=== PATIENT | male | born 1940 | race Caucasian/White ===

== ENCOUNTER 2019-07-01 11:02 | Inpatient (IN) ==
[~2019-07-01 11:02] MED LIST: ASPIRIN 325 MG TABLET PO ONE; DIAZEPAM 5 MG TABLET PO ONE; MAGNESIUM SULF RIDER 2 GM in PREMIX 1 EACH IV PRN; POTASSIUM CHLORIDE RIDER 10 MEQ in PREMIX 1 EACH IV PRN; diphenhydrAMINE CAP 25 MG CAPSULE PO ONE
[2019-07-01 12:07] LABS: Basophils # 0.1 10*3/uL (0.0-0.2); Basophils % 0.8 % (0.0-0.8); Eosinophils # 0.2 10*3/uL (0.0-0.87); Eosinophils % 3.1 % (0.00-10.9); Hematocrit 45.5 VOL% (42.0-52.0); Hemoglobin 14.6 GM/DL (14.0-18.0); Immature Granulocytes % 0.3 %; Immature Granulocytes Absolute 0.02 #; Lymphocytes # 1.5 10*3/uL (1.4-4.0); Lymphocytes % 19.4 % (21.2-54.2); Mean Corpuscular HGB Conc 32.1 GM/DL (32-36); Mean Corpuscular Volume 95.2 FL (87-102); Mean Platelet Volume 11.3 FL (9.6-12.0); Monocytes % 10.1 % (1.7-12.7); Neutrophils % 66.3 % (38.7-73.9); Platelet Count 188 T/CUMM (130-400); Red Blood Count 4.78 MC/CUMM (3.8-5.5); Red Cell Distribution Width 14.2 % (9.3-17.3); White Blood Count 7.7 T/CUMM (4-12)
[2019-07-01 12:16] LABS: PT Patient Result 10.4 SECS (9.6-12.2)
[2019-07-01] MEDS: SODIUM CHLORIDE 0.9% 1,000 ML IV SCH ×2 (12:30→18:01)
[2019-07-01 12:43] LABS: Albumin 3.8 G/DL (3.4-5.0); Bilirubin,Total 0.6 MG/DL (0.2-1.0); Calcium 8.9 MG/DL (8.5-10.1); Osmolality,Calculated 279.4 MOS/KG (273-304); Total Protein 7.4 G/DL (6.4-8.3)
[2019-07-01] MEDS ORDERED: ASPIRIN 325 MG TABLET ONE (12:52)
[2019-07-01] MEDS ORDERED: diphenhydrAMINE CAP 25 MG CAPSULE ONE (12:52)
[2019-07-01] MEDS ORDERED: DIAZEPAM 5 MG TABLET ONE (12:52)
[2019-07-01] MEDS ORDERED: LIDOCAINE 1% 20 ML VIAL ONE (15:18)
[2019-07-01] MEDS ORDERED: HEPARIN/NACL 0.9% 2 UNITS/ML 1,000 ML IV ONE (15:18)
[2019-07-01] MEDS ORDERED: HYDROmorphone 2 MG/1 ML VIAL ONE (15:31)
[2019-07-01] MEDS ORDERED: MIDAZOLAM 2 MG/2 ML VIAL ONE (15:31)
[2019-07-01] MEDS ORDERED: HEPARIN/NACL 0.9% 2 UNITS/ML 500 ML IV ONE (16:04)
[2019-07-01] MEDS ORDERED: HEPARIN 5,000 UNIT/1 ML VIAL ONE (16:13)
[2019-07-01] MEDS ORDERED: ONDANSETRON 4 MG/2 ML VIAL IV PRN (16:43)
[2019-07-01] MEDS ORDERED: ZALEPLON 5 MG CAPSULE PO PRN (16:43)
[2019-07-01] MEDS ORDERED: LABETALOL 20 MG/4 ML SYRINGE IV ONE (16:58)
[2019-07-01] MEDS ORDERED: AMIODARONE 200 MG TABLET PO SCH (21:00)
[2019-07-01] MEDS: ATORVASTATIN 20 MG TABLET PO SCH (21:09)
[2019-07-02 04:48] LABS: Basophils % 0.4 % (0.0-0.8); Eosinophils % 0.2 % (0.00-10.9); Hematocrit 42.8 VOL% (42.0-52.0); Hemoglobin 13.6 GM/DL (14.0-18.0); Immature Granulocytes % 0.3 %; Immature Granulocytes Absolute 0.03 #; Lymphocytes % 9.9 % (21.2-54.2); Mean Corpuscular HGB Conc 31.8 GM/DL (32-36); Mean Platelet Volume 11.9 FL (9.6-12.0); Monocytes % 8.7 % (1.7-12.7); Neutrophils % 80.5 % (38.7-73.9); Platelet Count 172 T/CUMM (130-400); Red Blood Count 4.46 MC/CUMM (3.8-5.5); Red Cell Distribution Width 14.3 % (9.3-17.3); White Blood Count 9.7 T/CUMM (4-12)
[2019-07-02 05:08] LABS: Calcium 8.5 MG/DL (8.5-10.1); Osmolality,Calculated 280.5 MOS/KG (273-304); VLDL CHOLESTEROL 6.6 MG/DL
[2019-07-02] MEDS: SODIUM CHLORIDE 0.9% 1,000 ML IV SCH (06:01)
[2019-07-02] MEDS: ASPIRIN EC 81 MG TABLET PO SCH (08:39)
[2019-07-02] MEDS: OMEGA 3 ACID ETHYL ESTERS 1 GM CAPSULE PO SCH (08:40)
[2019-07-02] MEDS: AMIODARONE 200 MG TABLET PO SCH (08:40)
[2019-07-02] MEDS: ISOSORBIDE MONONITRATE 30 MG TABLET PO SCH (08:40)
[2019-07-02] MEDS: CYANOCOBALAMIN 500 MCG TABLET PO SCH (08:47)
[2019-07-02] MEDS ORDERED: CEFUROXIME INJ 1,500 MG in SYRINGE 1 EACH IV ONE (10:00)
[2019-07-02] MEDS ORDERED: SODIUM CHLORIDE 0.9% 1,000 ML IV SCH ×2 (10:00→10:30)
[2019-07-02] MEDS ORDERED: DEXTROSE 50% 25 GM/50 ML VIAL IV PRN ×2 (10:00→10:02)
[2019-07-02] MEDS ORDERED: GLUCAGON 1 MG VIAL IM PRN ×2 (10:00→10:02)
[2019-07-02 10:15] LABS: ABG Base Excess -0.7 MMOL/L (-2.5-2.5); ABG HCO3 23.8 MMOL/L (20-26); ABG Oxygen Saturation 96.1 % (95-100); ABG PCO2 40.5 MM HG (35-48); ABG PH 7.386 (7.35-7.45); ABG PO2 78.8 MM HG (80-95); ABG TCO2 20.9 MMOL/L (23-27)
[2019-07-02] MEDS ORDERED: CHLORHEXIDINE 4% SOLN 118 ML BOTTLE TOP SCH (15:00)
[2019-07-02] MEDS: CHLORHEXIDINE 4% SOLN 118 ML BOTTLE TOP SCH ×2 (19:37→23:20)
[2019-07-02] MEDS ORDERED: CHLORHEXIDINE 0.12% ORAL RINSE 60 ML BOTTLE SWISH/SPIT SCH (21:00)
[2019-07-02] MEDS: ATORVASTATIN 20 MG TABLET PO SCH (21:05)
[2019-07-02] MEDS: CHLORHEXIDINE 0.12% ORAL RINSE 60 ML BOTTLE SWISH/SPIT SCH (21:05)
[2019-07-03] MEDS ORDERED: SODIUM CHLORIDE 0.9% 1,000 ML IV SCH (04:00)
[2019-07-03] MEDS: CHLORHEXIDINE 4% SOLN 118 ML BOTTLE TOP SCH ×2 (04:03→12:01)
[2019-07-03] MEDS ORDERED: PAPAVERINE 60 MG/2 ML VIAL ONE (04:22)
[2019-07-03] MEDS ORDERED: VANCOMYCIN 500 MG VIAL ONE (04:22)
[2019-07-03] MEDS ORDERED: VANCOMYCIN 1,000 MG VIAL ONE (04:22)
[2019-07-03] MEDS ORDERED: HEPARIN/NACL 0.9% 2 UNITS/ML 500 ML IV ONE (05:31)
[2019-07-03] MEDS ORDERED: CALCIUM CHLORIDE 1,000 MG/10 ML VIAL IV ONE ×2 (05:31→13:02)
[2019-07-03] MEDS ORDERED: PHENYLEPHRINE DRIP 20 MG/250 ML PREMIX IV ONE (05:31)
[2019-07-03] MEDS ORDERED: DOBUTamine 500 MG/250 ML PREMIX IV ONE (05:31)
[2019-07-03] MEDS ORDERED: AMINOCAPROIC ACID 5,000 MG/20 ML VIAL ONE (05:32)
[2019-07-03] MEDS ORDERED: SODIUM CHLORIDE 0.9% 100 ML IV ONE (05:32)
[2019-07-03] MEDS ORDERED: NITROGLYCERIN DRIP 50 MG/250 ML BOTTLE IV ONE (05:32)
[2019-07-03] MEDS ORDERED: VECURONIUM 10 MG VIAL IV ONE (05:32)
[2019-07-03] MEDS ORDERED: ETOMIDATE 40 MG/20 ML VIAL IV ONE (05:32)
[2019-07-03] MEDS ORDERED: SUFentanil 250 MCG/5 ML AMP ONE (05:32)
[2019-07-03] MEDS ORDERED: ePHEDrine 50 MG/ML AMP ONE (05:32)
[2019-07-03] MEDS ORDERED: MIDAZOLAM 10 MG/2 ML VIAL ONE (05:32)
[2019-07-03] MEDS ORDERED: SODIUM CHLORIDE 0.9% 1,000 ML IV ONE (05:33)
[2019-07-03] MEDS ORDERED: SODIUM CHLORIDE 0.9% 250 ML IV ONE (05:33)
[2019-07-03] MEDS ORDERED: LACTATED RINGERS 1,000 ML IV ONE (05:33)
[2019-07-03] MEDS ORDERED: FAMOTIDINE 20 MG TABLET PO ONE (06:00)
[2019-07-03] MEDS ORDERED: DIAZEPAM 5 MG TABLET PO ONE (06:00)
[2019-07-03] MEDS ORDERED: CEFUROXIME INJ 1,500 MG in SYRINGE 1 EACH IV ONE ×2 (06:30→07:00)
[2019-07-03] MEDS ORDERED: NITROPRUSSIDE 50 MG/2 ML VIAL ONE (07:29)
[2019-07-03] MEDS ORDERED: PHENYLEPHRINE DRIP 40 MG/250 ML PREMIX IV ONE (07:29)
[2019-07-03] MEDS ORDERED: SODIUM BICARBONATE 50 MEQ/50 ML VIAL IV ONE ×2 (07:29→10:52)
[2019-07-03] MEDS ORDERED: ALBUMIN 5% 12.5 GM/250 ML VIAL IV ONE ×2 (07:30→12:28)
[2019-07-03] MEDS ORDERED: CALCIUM CHLORIDE 1,000 MG/10 ML SYRINGE IV ONE (07:30)
[2019-07-03] MEDS ORDERED: POTASSIUM CHLORIDE RIDER 100 ML IV ONE (07:30)
[2019-07-03 07:35] LABS: ABG Base Excess 0.3 MMOL/L (-2.5-2.5); ABG HCO3 24.3 MMOL/L (20-26); ABG Oxygen Saturation 99.5 % (95-100); ABG PCO2 37.4 MM HG (35-48); ABG PH 7.431 (7.35-7.45); ABG TCO2 25.5 MMOL/L (23-27); Glucose Heart Surgery 107 MG/DL (74-106); Hemoglobin Heart Surgery 12.5 G/DL (14.0-18.0); Ionized Calcium Arterial 1.13 MMOL/L (1.21-1.46); PCO2 Patient Temp Arterial 37.4 MMHG; PH Patient Temp Arterial 7.431; PO2 Patient Temp Arterial 588.1 MM HG; Patient Temperature 37 CELCIUS; Potassium Heart/CVR 3.8 MMOL/L (3.5-5.1); Sodium Heart/CVR 139 MMOL/L (135-145)
[2019-07-03 07:36] LABS: ABG PO2 588.1 MM HG (80-95)
[2019-07-03] MEDS ORDERED: FAMOTIDINE 20 MG/2 ML VIAL IV ONE (07:39)
[2019-07-03] MEDS ORDERED: diphenhydrAMINE 50 MG/1 ML VIAL ONE (07:39)
[2019-07-03 07:46] LABS: Apearance,Urine CLEAR (Clear); Bilirubin,Urine Negative (Negative); Blood, Urine Small mg/dL (Negative); Glucose,Urine (UA) Negative (Negative); Ketones,Urine Negative (Negative); Mucus,Urine Occasional /LPF (Occasional); Nitrite,Urine Negative (Negative); Protein,Urine Negative; RBC,Urine 3 /HPF (0-4); Urine Color Yellow (Yellow); Urine Specific Gravity 1.018 (1.001-1.035); WBC,Urine <1 /HPF (0-6)
[2019-07-03 08:45] LABS: Hematocrit Heart Surgery 26.3 PERCENT (42-52); Hemoglobin Heart Surgery 8.5 G/DL (14.0-18.0); PCO2 Patient Temp Venous 35.4 MM HG; PH Patient Temp Venous 7.467; PO2 Patient Temp Venous 38.5 MM HG; Potassium Heart/CVR 4.3 MMOL/L (3.5-5.1); VBG Base Excess 2.1 MEQ/L (0-4); VBG HCO3 26.1 MEQ/L (24-28); VBG Oxygen Saturation 84.3 %; VBG PH 7.438; VBG PO2 44.2 MMHG (17-40)
[2019-07-03 09:12] LABS: PCO2 Patient Temp Venous 31.1 MM HG; PH Patient Temp Venous 7.514; PO2 Patient Temp Venous 32.8 MM HG; Potassium Heart/CVR 4.2 MMOL/L (3.5-5.1); VBG Base Excess 2.6 MEQ/L (0-4); VBG HCO3 26.5 MEQ/L (24-28); VBG PCO2 37.7 MMHG (41-51); VBG PH 7.455; VBG PO2 43.3 MMHG (17-40)
[2019-07-03 09:46] LABS: Hematocrit Heart Surgery 29.3 PERCENT (42-52); Hemoglobin Heart Surgery 9.4 G/DL (14.0-18.0); PCO2 Patient Temp Venous 29.2 MM HG; PH Patient Temp Venous 7.537; PO2 Patient Temp Venous 33.6 MM HG; VBG Base Excess 2.8 MEQ/L (0-4); VBG HCO3 26.7 MEQ/L (24-28); VBG Oxygen Saturation 85.7 %; VBG PCO2 35.5 MMHG (41-51); VBG PH 7.476; VBG PO2 44.3 MMHG (17-40)
[2019-07-03 10:18] LABS: Hematocrit Heart Surgery 29.7 PERCENT (42-52); Hemoglobin Heart Surgery 9.6 G/DL (14.0-18.0); PH Patient Temp Venous 7.492; PO2 Patient Temp Venous 32.1 MM HG; Potassium Heart/CVR 4.2 MMOL/L (3.5-5.1); VBG Base Excess 2.2 MEQ/L (0-4); VBG Oxygen Saturation 73.9 %; VBG PCO2 34.6 MMHG (41-51); VBG PH 7.476; VBG PO2 34.4 MMHG (17-40)
[2019-07-03] MEDS ORDERED: ALBUMIN 25% 25 GM/100 ML VIAL IV ONE (10:50)
[2019-07-03] MEDS ORDERED: DEXTROSE 5% KCL 20 MEQ 20 MEQ/1,000 ML BAG IV ONE (10:50)
[2019-07-03] MEDS ORDERED: MANNITOL 100 GM/500 ML BAG IV ONE (10:51)
[2019-07-03] MEDS ORDERED: FUROSEMIDE 20 MG/2 ML VIAL ONE (10:51)
[2019-07-03] MEDS ORDERED: HEPARIN 10,000 UNIT/10 ML VIAL ONE (10:51)
[2019-07-03] MEDS ORDERED: MAGNESIUM SULFATE 5 GM/10 ML VIAL IV ONE (10:52)
[2019-07-03] MEDS ORDERED: LIDOCAINE 2% 5 ML VIAL ONE (10:52)
[2019-07-03] MEDS ORDERED: PROTAMINE SULFATE 250 MG/25 ML VIAL IV ONE (10:52)
[2019-07-03] MEDS ORDERED: methylPREDNISolone SOD SUC 1,000 MG/8 ML VIAL ONE (10:52)
[2019-07-03 11:08] LABS: ABG Base Excess 1.2 MMOL/L (-2.5-2.5); ABG HCO3 25.5 MMOL/L (20-26); ABG PCO2 39.3 MM HG (35-48); ABG PH 7.422 (7.35-7.45); ABG TCO2 23.7 MMOL/L (23-27); Glucose Heart Surgery 213 MG/DL (74-106); Hematocrit Heart Surgery 27.2 PERCENT (42-52); Hemoglobin Heart Surgery 8.8 G/DL (14.0-18.0); Ionized Calcium Arterial 1.14 MMOL/L (1.21-1.46); PCO2 Patient Temp Arterial 39.3 MMHG; PH Patient Temp Arterial 7.422; Patient Temperature 37 CELCIUS; Potassium Heart/CVR 3.4 MMOL/L (3.5-5.1); Sodium Heart/CVR 135 MMOL/L (135-145)
[2019-07-03] MEDS ORDERED: THROMBIN TOPICAL (RECOMBINANT) 5,000 UNIT VIAL TOP ONE (11:19)
[2019-07-03 11:30] LABS: ABG Base Excess 0.4 MMOL/L (-2.5-2.5); ABG HCO3 24.8 MMOL/L (20-26); ABG PCO2 38.3 MM HG (35-48); ABG PH 7.419 (7.35-7.45); ABG TCO2 23.2 MMOL/L (23-27); Glucose Heart Surgery 192 MG/DL (74-106); Hematocrit Heart Surgery 23.8 PERCENT (42-52); Hemoglobin Heart Surgery 7.6 G/DL (14.0-18.0); PCO2 Patient Temp Arterial 38.3 MMHG; PH Patient Temp Arterial 7.419; Patient Temperature 37 CELCIUS; Potassium Heart/CVR 5.3 MMOL/L (3.5-5.1); Sodium Heart/CVR 137 MMOL/L (135-145)
[2019-07-03] MEDS: AMIODARONE 200 MG TABLET PO SCH (12:01)
[2019-07-03] MEDS: ASPIRIN EC 81 MG TABLET PO SCH (12:01)
[2019-07-03] MEDS: ISOSORBIDE MONONITRATE 30 MG TABLET PO SCH (12:01)
[2019-07-03] MEDS: OMEGA 3 ACID ETHYL ESTERS 1 GM CAPSULE PO SCH (12:01)
[2019-07-03] MEDS: CYANOCOBALAMIN 500 MCG TABLET PO SCH (12:02)
[2019-07-03] MEDS: CHLORHEXIDINE 0.12% ORAL RINSE 60 ML BOTTLE SWISH/SPIT SCH ×2 (12:02→20:17)
[2019-07-03 12:13] LABS: ABG Base Excess -3.6 MMOL/L (-2.5-2.5); ABG HCO3 21.4 MMOL/L (20-26); ABG Oxygen Saturation 99.7 % (95-100); ABG PCO2 36.3 MM HG (35-48); ABG PH 7.373 (7.35-7.45); ABG TCO2 19.5 MMOL/L (23-27); Glucose Heart Surgery 193 MG/DL (74-106); Hematocrit Heart Surgery 28.3 PERCENT (42-52); Hemoglobin Heart Surgery 9.1 G/DL (14.0-18.0); Ionized Calcium Arterial 1.08 MMOL/L (1.21-1.46); PCO2 Patient Temp Arterial 36.3 MMHG; PH Patient Temp Arterial 7.373; Patient Temperature 37 CELCIUS; Potassium Heart/CVR 4.3 MMOL/L (3.5-5.1); Sodium Heart/CVR 139 MMOL/L (135-145)
[2019-07-03] MEDS ORDERED: CALCIUM CHLORIDE 1,000 MG/10 ML SYRINGE IV PRN (13:00)
[2019-07-03] MEDS ORDERED: INSULIN REGULAR 100 UNIT/ML IV ONE (13:00)
[2019-07-03] MEDS ORDERED: ACETAMINOPHEN 650 MG SUPP RECTAL PRN (13:00)
[2019-07-03] MEDS ORDERED: MIDAZOLAM 2 MG/2 ML VIAL IV PRN (13:00)
[2019-07-03] MEDS ORDERED: DEXTROSE 50% 25 GM/50 ML VIAL IV PRN ×2 (13:00)
[2019-07-03] MEDS ORDERED: MIDAZOLAM 10 MG/2 ML VIAL IV PRN (13:00)
[2019-07-03] MEDS ORDERED: MORPHINE 10 MG/1 ML VIAL IV PRN (13:00)
[2019-07-03] MEDS ORDERED: INSULIN REGULAR 100 UNIT/ML IV PRN (13:00)
[2019-07-03] MEDS ORDERED: NITROPRUSSIDE 100 MG in DEXTROSE 5% 250 ML IV PRN (13:00)
[2019-07-03] MEDS ORDERED: MAGNESIUM SULF RIDER 4 GM in PREMIX 1 EACH IV PRN (13:00)
[2019-07-03] MEDS ORDERED: INSULIN REGULAR DRIP 100 ML IV SCH (13:00)
[2019-07-03] MEDS ORDERED: VECURONIUM 10 MG VIAL IV PRN ×2 (13:00)
[2019-07-03] MEDS ORDERED: SODIUM CHLORIDE 0.45% 1,000 ML IV SCH ×2 (13:00)
[2019-07-03] MEDS ORDERED: PROTAMINE SULFATE 50 MG/5 ML VIAL IV ONE (13:01)
[2019-07-03 13:02] LABS: ABG Base Excess 1.2 MMOL/L (-2.5-2.5); ABG HCO3 25.5 MMOL/L (20-26); ABG Oxygen Saturation 99.8 % (95-100); ABG PCO2 40.4 MM HG (35-48); ABG PH 7.413 (7.35-7.45); Glucose Heart Surgery 176 MG/DL (74-106); Hematocrit Heart Surgery 25.7 PERCENT (42-52); Hemoglobin Heart Surgery 8.3 G/DL (14.0-18.0); Potassium Heart/CVR 3.4 MMOL/L (3.5-5.1)
[2019-07-03] MEDS ORDERED: SEVOFLURANE 1 UNIT/15 MINUTE INH ONE (13:02)
[2019-07-03 13:11] LABS: Basophils % 0.2 % (0.0-0.8); Eosinophils % 0.4 % (0.00-10.9); Hematocrit 24.4 VOL% (42.0-52.0); Hemoglobin 8.1 GM/DL (14.0-18.0); Immature Granulocytes % 0.6 %; Immature Granulocytes Absolute 0.06 #; Lymphocytes # 0.5 10*3/uL (1.4-4.0); Lymphocytes % 5.3 % (21.2-54.2); Mean Corpuscular HGB Conc 33.2 GM/DL (32-36); Mean Corpuscular Volume 92.4 FL (87-102); Mean Platelet Volume 11.8 FL (9.6-12.0); Monocytes % 6.8 % (1.7-12.7); Neutrophils % 86.7 % (38.7-73.9); Platelet Count 118 T/CUMM (130-400); Red Blood Count 2.64 MC/CUMM (3.8-5.5); Red Cell Distribution Width 14.8 % (9.3-17.3); White Blood Count 9.9 T/CUMM (4-12)
[2019-07-03] MEDS: POTASSIUM CHLORIDE RIDER 20 MEQ in PREMIX 1 EACH IV PRN ×2 (13:18→13:51)
[2019-07-03] MEDS: PHENYLEPHRINE DRIP 40 MG/250 ML PREMIX IV PRN (13:20)
[2019-07-03 13:24] LABS: Albumin 3.5 G/DL (3.4-5.0); Bilirubin,Total 0.8 MG/DL (0.2-1.0); CKMB % 8.4 %; Calcium 10.2 MG/DL (8.5-10.1); Osmolality,Calculated 295.6 MOS/KG (273-304); Total Protein 5.4 G/DL (6.4-8.3)
[2019-07-03 13:27] LABS: Troponin I 18.5 NG/ML (0.00-0.045)
[2019-07-03] MEDS: KETOROLAC 30 MG/1 ML VIAL IV SCH ×2 (13:40→19:25)
[2019-07-03] MEDS: ALBUMIN 5% 12.5 GM in PREMIX 1 EACH IV PRN ×4 (14:00→18:39)
[2019-07-03 14:13] LABS: ABG Base Excess -0.1 MMOL/L (-2.5-2.5); ABG HCO3 24.3 MMOL/L (20-26); ABG Oxygen Saturation 98.5 % (95-100); ABG PCO2 38.9 MM HG (35-48); ABG PH 7.414 (7.35-7.45); ABG TCO2 25.5 MMOL/L (23-27); Glucose Heart Surgery 174 MG/DL (74-106); Hemoglobin Heart Surgery 9.9 G/DL (14.0-18.0); Potassium Heart/CVR 5.4 MMOL/L (3.5-5.1)
[2019-07-03 15:02] LABS: Eosinophils 2 % (0-10); Lymphocytes 4 % (20-55); Segmented Neutrophils 90 % (50-85); Total Cells Counted 100
[2019-07-03 15:03] LABS: Anisocytosis 1+; Hypochromasia 1+
[2019-07-03 15:04] LABS: Macrocytosis Slight; Platelet Estimate Adequate
[2019-07-03 16:07] LABS: ABG Base Excess -0.1 MMOL/L (-2.5-2.5); ABG HCO3 25.2 MMOL/L (20-26); ABG Oxygen Saturation 98.3 % (95-100); ABG PCO2 43.9 MM HG (35-48); ABG PH 7.376 (7.35-7.45); ABG PO2 169.8 MM HG (80-95); ABG TCO2 26.5 MMOL/L (23-27); Glucose Heart Surgery 178 MG/DL (74-106); Hemoglobin Heart Surgery 9.4 G/DL (14.0-18.0); Potassium Heart/CVR 4.5 MMOL/L (3.5-5.1)
[2019-07-03 16:35] LABS: INR 1.2; PT Patient Result 12.7 SECS (9.6-12.2); Partial Thromboplastin Time 28.6 SECS (20.8-36.0)
[2019-07-03] MEDS: LACTATED RINGERS 250 ML IV PRN ×4 (17:03→17:27)
[2019-07-03 18:04] LABS: ABG Base Excess -0.2 MMOL/L (-2.5-2.5); ABG HCO3 24.3 MMOL/L (20-26); ABG Oxygen Saturation 99.3 % (95-100); ABG PCO2 41.7 MM HG (35-48); ABG PH 7.383 (7.35-7.45); ABG TCO2 22.6 MMOL/L (23-27); Glucose Heart Surgery 160 MG/DL (74-106); Hematocrit Heart Surgery 31.7 PERCENT (42-52); Potassium Heart/CVR 4.5 MMOL/L (3.5-5.1)
[2019-07-03 18:05] LABS: Hemoglobin Heart Surgery 10.2 G/DL (14.0-18.0)
[2019-07-03] MEDS: CEFUROXIME INJ 1,500 MG in SYRINGE 1 EACH IV SCH (20:18)
[2019-07-03 21:09] LABS: Hematocrit 30.4 VOL% (42.0-52.0)
[2019-07-03 21:11] LABS: Hemoglobin 10.2 GM/DL (14.0-18.0)
[2019-07-03] MEDS: MORPHINE 4 MG/1 ML VIAL IV PRN (21:53)
[2019-07-03] MEDS ORDERED: NITROGLYCERIN DRIP 50 MG/250 ML BOTTLE IV PRN (22:43)
[2019-07-03 22:49] LABS: CKMB % 9.4 %
[2019-07-03 22:53] LABS: Troponin I 74.3 NG/ML (0.00-0.045)
[2019-07-03 23:29] LABS: Hematocrit 30.8 VOL% (42.0-52.0); Hemoglobin 10.4 GM/DL (14.0-18.0)
[2019-07-04] MEDS ORDERED: DOBUTamine 500 MG/250 ML PREMIX IV PRN (00:03)
[2019-07-04] MEDS: KETOROLAC 30 MG/1 ML VIAL IV SCH ×4 (01:00→18:14)
[2019-07-04] MEDS: FUROSEMIDE 40 MG/4 ML VIAL IV PRN (01:03)
[2019-07-04] MEDS: LACTATED RINGERS 250 ML IV PRN ×2 (01:40→01:56)
[2019-07-04 01:49] LABS: ABG Base Excess 0.3 MMOL/L (-2.5-2.5); ABG HCO3 24.7 MMOL/L (20-26); ABG Oxygen Saturation 98.9 % (95-100); ABG PCO2 39.9 MM HG (35-48); ABG PH 7.405 (7.35-7.45); ABG TCO2 22.7 MMOL/L (23-27); Glucose Heart Surgery 170 MG/DL (74-106); Hematocrit Heart Surgery 31.3 PERCENT (42-52); Hemoglobin Heart Surgery 10.1 G/DL (14.0-18.0); Potassium Heart/CVR 3.9 MMOL/L (3.5-5.1)
[2019-07-04] MEDS: MORPHINE 4 MG/1 ML VIAL IV PRN ×2 (02:50→16:46)
[2019-07-04 02:53] LABS: ABG Base Excess 0.3 MMOL/L (-2.5-2.5); ABG HCO3 24.8 MMOL/L (20-26); ABG Oxygen Saturation 99.3 % (95-100); ABG PCO2 37.2 MM HG (35-48); ABG PH 7.426 (7.35-7.45); ABG TCO2 22.1 MMOL/L (23-27); Glucose Heart Surgery 139 MG/DL (74-106); Hemoglobin Heart Surgery 10.3 G/DL (14.0-18.0); Potassium Heart/CVR 3.6 MMOL/L (3.5-5.1)
[2019-07-04] MEDS: ONDANSETRON 4 MG/2 ML VIAL IV PRN (03:53)
[2019-07-04 04:23] LABS: Basophils % 0.1 % (0.0-0.8); Hematocrit 30.4 VOL% (42.0-52.0); Hemoglobin 10.1 GM/DL (14.0-18.0); Immature Granulocytes % 0.4 %; Immature Granulocytes Absolute 0.05 #; Lymphocytes # 0.8 10*3/uL (1.4-4.0); Lymphocytes % 6.8 % (21.2-54.2); Mean Corpuscular HGB Conc 33.2 GM/DL (32-36); Mean Corpuscular Volume 85.9 FL (87-102); Mean Platelet Volume 12.3 FL (9.6-12.0); Monocytes % 6.6 % (1.7-12.7); Neutrophils % 86.1 % (38.7-73.9); Platelet Count 62 T/CUMM (130-400); Red Blood Count 3.54 MC/CUMM (3.8-5.5); Red Cell Distribution Width 16.1 % (9.3-17.3); White Blood Count 11.9 T/CUMM (4-12)
[2019-07-04 04:49] LABS: Albumin 3.6 G/DL (3.4-5.0); Bilirubin,Direct 0.28 MG/DL (0.0-0.20); Bilirubin,Total 1.1 MG/DL (0.2-1.0); Calcium 8.4 MG/DL (8.5-10.1); Total Protein 5.7 G/DL (6.4-8.3)
[2019-07-04] MEDS: POTASSIUM CHLORIDE RIDER 20 MEQ in PREMIX 1 EACH IV PRN (05:07)
[2019-07-04] MEDS: MAGNESIUM SULF RIDER 2 GM in PREMIX 1 EACH IV PRN (05:12)
[2019-07-04 05:37] LABS: Band Neutrophils 6 % (0-10); Lymphocytes 9 % (20-55); Segmented Neutrophils 78 % (50-85); Total Cells Counted 100
[2019-07-04 05:39] LABS: CKMB % 10.2 %
[2019-07-04 05:40] LABS: Anisocytosis 1+; Platelet Estimate Decreased
[2019-07-04] MEDS: POTASSIUM CHLORIDE RIDER 10 MEQ in PREMIX 1 EACH IV PRN (05:41)
[2019-07-04] MEDS: CEFUROXIME INJ 1,500 MG in SYRINGE 1 EACH IV SCH ×2 (08:13→20:18)
[2019-07-04] MEDS: CHLORHEXIDINE 0.12% ORAL RINSE 60 ML BOTTLE SWISH/SPIT SCH ×2 (08:13→20:20)
[2019-07-04] MEDS ORDERED: GLUCAGON 1 MG VIAL IM PRN (09:37)
[2019-07-04] MEDS ORDERED: DEXTROSE 10% 25 GM/250 ML BAG IV PRN (09:37)
[2019-07-04] MEDS: ALBUMIN 5% 12.5 GM in PREMIX 1 EACH IV PRN ×2 (10:46→11:04)
[2019-07-04] MEDS: PHENYLEPHRINE DRIP 40 MG/250 ML PREMIX IV PRN (11:05)
[2019-07-04] MEDS ORDERED: INSULIN REGULAR 100 UNIT/ML SUBCUT SCH (14:00)
[2019-07-04 14:56] LABS: CKMB % 8.6 %
[2019-07-04 14:59] LABS: Troponin I 80.2 NG/ML (0.00-0.045)
[2019-07-04] MEDS: INSULIN REGULAR 100 UNIT/ML SUBCUT SCH ×2 (16:00→20:20)
[2019-07-04] MEDS: ACETAMINOPHEN 325 MG TABLET PO PRN (16:55)
[2019-07-04] MEDS ORDERED: HEPARIN/NACL 0.9% 2 UNITS/ML 500 ML IV ONE (16:58)
[2019-07-04 20:05] LABS: ABG HCO3 27.3 MMOL/L (20-26); ABG Oxygen Saturation 90.1 % (95-100); ABG PCO2 40.5 MM HG (35-48); ABG PH 7.446 (7.35-7.45); ABG TCO2 28.5 MMOL/L (23-27)
[2019-07-04] MEDS ORDERED: FUROSEMIDE 40 MG/4 ML VIAL IV ONE (20:11)
[2019-07-04] MEDS: ATORVASTATIN 20 MG TABLET PO SCH (20:20)
[2019-07-04] MEDS ORDERED: LIDOCAINE 1%/EPI INJ 20 ML VIAL ONE (20:30)
[2019-07-04] MEDS ORDERED: MIDAZOLAM 2 MG/2 ML VIAL IV ONE (21:00)
[2019-07-04] MEDS: ALBUTEROL/IPRATROPIUM 3 ML NEB RESP TX SCH (21:48)
[2019-07-05] MEDS: ALBUTEROL/IPRATROPIUM 3 ML NEB RESP TX SCH ×4 (00:47→19:47)
[2019-07-05] MEDS: INSULIN REGULAR 100 UNIT/ML SUBCUT SCH ×6 (01:22→20:08)
[2019-07-05] MEDS ORDERED: FUROSEMIDE 20 MG/2 ML VIAL IV ONE (02:00)
[2019-07-05 04:04] LABS: Basophils % 0.1 % (0.0-0.8); Hematocrit 24.5 VOL% (42.0-52.0); Hemoglobin 8.1 GM/DL (14.0-18.0); Immature Granulocytes % 0.4 %; Immature Granulocytes Absolute 0.07 #; Lymphocytes # 0.9 10*3/uL (1.4-4.0); Mean Corpuscular HGB Conc 33.1 GM/DL (32-36); Mean Corpuscular Volume 88.4 FL (87-102); Mean Platelet Volume 13.6 FL (9.6-12.0); Monocytes % 8.9 % (1.7-12.7); Neutrophils % 85.6 % (38.7-73.9); Platelet Count 46 T/CUMM (130-400); Red Blood Count 2.77 MC/CUMM (3.8-5.5); Red Cell Distribution Width 16.8 % (9.3-17.3); White Blood Count 17.6 T/CUMM (4-12)
[2019-07-05 04:30] LABS: Albumin 3.3 G/DL (3.4-5.0); Bilirubin,Direct 0.17 MG/DL (0.0-0.20); Bilirubin,Total 1.1 MG/DL (0.2-1.0); Calcium 7.9 MG/DL (8.5-10.1); Osmolality,Calculated 290.3 MOS/KG (273-304); Total Protein 5.5 G/DL (6.4-8.3)
[2019-07-05 05:22] LABS: Anisocytosis 1+; Lymphocytes 5 % (20-55); Platelet Estimate Decreased; Segmented Neutrophils 92 % (50-85); Total Cells Counted 100
[2019-07-05] MEDS: MAGNESIUM SULF RIDER 2 GM in PREMIX 1 EACH IV PRN (05:51)
[2019-07-05] MEDS: FUROSEMIDE 40 MG/4 ML VIAL IV PRN (07:58)
[2019-07-05] MEDS: OMEGA 3 ACID ETHYL ESTERS 1 GM CAPSULE PO SCH (08:01)
[2019-07-05] MEDS: ASPIRIN EC 81 MG TABLET PO SCH (08:01)
[2019-07-05] MEDS: AMIODARONE 200 MG TABLET PO SCH (08:01)
[2019-07-05] MEDS: CHLORHEXIDINE 0.12% ORAL RINSE 60 ML BOTTLE SWISH/SPIT SCH ×2 (08:02→20:09)
[2019-07-05] MEDS: ISOSORBIDE MONONITRATE 30 MG TABLET PO SCH (08:02)
[2019-07-05] MEDS: CYANOCOBALAMIN 5000 MCG TABLET PO SCH (08:02)
[2019-07-05] MEDS: DOBUTamine 500 MG/250 ML PREMIX IV SCH (08:51)
[2019-07-05] MEDS: PIPERACILLIN/TAZOBACTAM 2,250 MG in SODIUM CHLORIDE 0.9% 100 ML IV SCH ×2 (09:25→16:51)
[2019-07-05 10:12] LABS: Hematocrit 31.9 VOL% (42.0-52.0); Hemoglobin 10.7 GM/DL (14.0-18.0)
[2019-07-05] MEDS: PHENYLEPHRINE DRIP 40 MG/250 ML PREMIX IV PRN ×2 (11:12→20:17)
[2019-07-05] MEDS: FUROSEMIDE 40 MG/4 ML VIAL IV SCH ×2 (15:28→18:31)
[2019-07-05] MEDS: ATORVASTATIN 20 MG TABLET PO SCH (20:08)
[2019-07-06] MEDS: INSULIN REGULAR 100 UNIT/ML SUBCUT SCH ×6 (00:43→20:29)
[2019-07-06 01:10] LABS: ABG Base Excess 6.4 MMOL/L (-2.5-2.5); ABG HCO3 30.3 MMOL/L (20-26); ABG Oxygen Saturation 97.2 % (95-100); ABG PCO2 40.6 MM HG (35-48); ABG PH 7.483 (7.35-7.45); ABG PO2 82.5 MM HG (80-95); ABG TCO2 27.2 MMOL/L (23-27); Allen Test Positive
[2019-07-06] MEDS: PIPERACILLIN/TAZOBACTAM 2,250 MG in SODIUM CHLORIDE 0.9% 100 ML IV SCH ×3 (01:13→16:55)
[2019-07-06] MEDS: ALBUTEROL/IPRATROPIUM 3 ML NEB RESP TX SCH ×4 (01:22→20:00)
[2019-07-06] MEDS ORDERED: FUROSEMIDE 40 MG/4 ML VIAL IV ONE (01:29)
[2019-07-06] MEDS ORDERED: methylPREDNISolone SOD SUC 125 MG/2 ML VIAL IV SCH (02:00)
[2019-07-06] MEDS: VANCOMYCIN INJ 1,000 MG in SODIUM CHLORIDE 0.9% 250 ML IV SCH ×2 (02:26→13:55)
[2019-07-06 04:59] LABS: Basophils % 0.1 % (0.0-0.8); Hematocrit 33.9 VOL% (42.0-52.0); Hemoglobin 11.1 GM/DL (14.0-18.0); Immature Granulocytes % 1.2 %; Immature Granulocytes Absolute 0.23 #; Lymphocytes # 0.6 10*3/uL (1.4-4.0); Lymphocytes % 3.1 % (21.2-54.2); Mean Corpuscular HGB Conc 32.7 GM/DL (32-36); Mean Platelet Volume 13.7 FL (9.6-12.0); Monocytes % 6.2 % (1.7-12.7); Neutrophils % 89.4 % (38.7-73.9); Platelet Count 54 T/CUMM (130-400); Red Blood Count 3.81 MC/CUMM (3.8-5.5); Red Cell Distribution Width 16.4 % (9.3-17.3); White Blood Count 19.8 T/CUMM (4-12)
[2019-07-06] MEDS: PHENYLEPHRINE DRIP 40 MG/250 ML PREMIX IV PRN ×3 (05:20→23:47)
[2019-07-06 05:27] LABS: Albumin 3.3 G/DL (3.4-5.0); Bilirubin,Direct 0.3 MG/DL (0.0-0.20); Bilirubin,Total 0.9 MG/DL (0.2-1.0); Calcium 8.2 MG/DL (8.5-10.1); Osmolality,Calculated 295.8 MOS/KG (273-304); Total Protein 6.2 G/DL (6.4-8.3)
[2019-07-06 05:30] LABS: Hypochromasia Slight; Lymphocytes 1 % (20-55); Platelet Estimate Decreased; Segmented Neutrophils 97 % (50-85); Total Cells Counted 100
[2019-07-06] MEDS: methylPREDNISolone SOD SUC 125 MG/2 ML VIAL IV SCH ×3 (07:11→18:05)
[2019-07-06] MEDS: ISOSORBIDE MONONITRATE 30 MG TABLET PO SCH (08:40)
[2019-07-06] MEDS: AMIODARONE 200 MG TABLET PO SCH ×3 (08:40→21:14)
[2019-07-06] MEDS: OMEGA 3 ACID ETHYL ESTERS 1 GM CAPSULE PO SCH (08:40)
[2019-07-06] MEDS: ASPIRIN EC 81 MG TABLET PO SCH (08:40)
[2019-07-06] MEDS: FUROSEMIDE 40 MG/4 ML VIAL IV SCH ×2 (08:45→16:55)
[2019-07-06] MEDS: DOBUTamine 500 MG/250 ML PREMIX IV SCH (09:00)
[2019-07-06] MEDS: CYANOCOBALAMIN 5000 MCG TABLET PO SCH (09:00)
[2019-07-06] MEDS: CHLORHEXIDINE 0.12% ORAL RINSE 60 ML BOTTLE SWISH/SPIT SCH ×2 (10:30→21:21)
[2019-07-06] MEDS: MORPHINE 4 MG/1 ML VIAL IV PRN (13:50)
[2019-07-06] MEDS: METOPROLOL TARTRATE 25 MG TABLET PO SCH ×2 (14:30→21:14)
[2019-07-06] MEDS ORDERED: DOCUSATE SODIUM 100 MG CAPSULE PO SCH (21:00)
[2019-07-06] MEDS: ATORVASTATIN 20 MG TABLET PO SCH (21:14)
[2019-07-06] MEDS ORDERED: ETOMIDATE 20 MG/10 ML VIAL IV ONE ×2 (22:14→22:39)
[2019-07-06] MEDS ORDERED: SUCCINYLCHOLINE 200 MG/10 ML VIAL ONE (22:15)
[2019-07-06] MEDS ORDERED: SUCCINYLCHOLINE 200 MG/10 ML VIAL IV ONE (22:40)
[2019-07-06 23:42] LABS: ABG Base Excess 6.8 MMOL/L (-2.5-2.5); ABG HCO3 30.6 MMOL/L (20-26); ABG Oxygen Saturation 99.3 % (95-100); ABG PCO2 42.8 MM HG (35-48); ABG TCO2 27.9 MMOL/L (23-27); Allen Test Positive; Pt O2 Delivery Device Ventilator
[2019-07-07] MEDS: INSULIN REGULAR 100 UNIT/ML SUBCUT SCH ×6 (00:54→21:01)
[2019-07-07] MEDS: methylPREDNISolone SOD SUC 125 MG/2 ML VIAL IV SCH ×2 (00:54→06:01)
[2019-07-07] MEDS: FUROSEMIDE 40 MG/4 ML VIAL IV PRN (01:02)
[2019-07-07] MEDS: PIPERACILLIN/TAZOBACTAM 2,250 MG in SODIUM CHLORIDE 0.9% 100 ML IV SCH ×3 (01:03→17:20)
[2019-07-07] MEDS: ALBUTEROL/IPRATROPIUM 3 ML NEB RESP TX SCH ×4 (01:50→19:35)
[2019-07-07] MEDS: VANCOMYCIN INJ 1,000 MG in SODIUM CHLORIDE 0.9% 250 ML IV SCH ×2 (02:14→15:45)
[2019-07-07 03:10] LABS: Basophils % 0.1 % (0.0-0.8); Hematocrit 32.3 VOL% (42.0-52.0); Hemoglobin 10.4 GM/DL (14.0-18.0); Immature Granulocytes % 0.6 %; Immature Granulocytes Absolute 0.13 #; Lymphocytes # 0.6 10*3/uL (1.4-4.0); Lymphocytes % 2.6 % (21.2-54.2); Mean Corpuscular HGB Conc 32.2 GM/DL (32-36); Mean Corpuscular Volume 90.2 FL (87-102); Monocytes % 6.7 % (1.7-12.7); NRBC # 0.05 10*3/uL; Platelet Count 79 T/CUMM (130-400); Red Blood Count 3.58 MC/CUMM (3.8-5.5); Red Cell Distribution Width 16.4 % (9.3-17.3)
[2019-07-07 03:36] LABS: Albumin 2.8 G/DL (3.4-5.0); Osmolality,Calculated 294.1 MOS/KG (273-304); Total Protein 5.7 G/DL (6.4-8.3)
[2019-07-07 03:51] LABS: Troponin I 38.9 NG/ML (0.00-0.045)
[2019-07-07 03:58] LABS: Anisocytosis Slight; Hypochromasia Slight; Lymphocytes 3 % (20-55); Microcytosis Slight; Platelet Estimate Decreased; Segmented Neutrophils 95 % (50-85); Total Cells Counted 100
[2019-07-07 03:58] LABS: ABG Base Excess 7.6 MMOL/L (-2.5-2.5); ABG HCO3 31.4 MMOL/L (20-26); ABG PCO2 41.9 MM HG (35-48); ABG PH 7.489 (7.35-7.45); ABG TCO2 26.3 MMOL/L (23-27); Allen Test Positive; Pt O2 Delivery Device Ventilator
[2019-07-07 03:59] LABS: Ovalocytes Slight; Polychromasia Slight; Target Cells Few
[2019-07-07] MEDS: POTASSIUM CHLORIDE RIDER 20 MEQ in PREMIX 1 EACH IV PRN (05:38)
[2019-07-07] MEDS: PHENYLEPHRINE DRIP 40 MG/250 ML PREMIX IV PRN ×2 (05:51→15:40)
[2019-07-07] MEDS: DOCUSATE SODIUM 100 MG/10 ML UDCUP PO SCH ×2 (08:15→21:00)
[2019-07-07] MEDS: AMIODARONE 200 MG TABLET PO SCH ×2 (08:15→21:00)
[2019-07-07] MEDS: METOPROLOL TARTRATE 25 MG TABLET PO SCH ×2 (08:15→21:01)
[2019-07-07] MEDS: ASPIRIN EC 81 MG TABLET PO SCH (08:15)
[2019-07-07] MEDS: CHLORHEXIDINE 0.12% ORAL RINSE 60 ML BOTTLE SWISH/SPIT SCH ×2 (08:15→21:16)
[2019-07-07] MEDS: FUROSEMIDE 40 MG/4 ML VIAL IV SCH ×2 (08:15)
[2019-07-07] MEDS: CYANOCOBALAMIN 5000 MCG TABLET PO SCH (09:00)
[2019-07-07] MEDS: ALBUMIN 5% 12.5 GM in PREMIX 1 EACH IV PRN ×2 (11:20→11:50)
[2019-07-07] MEDS: methylPREDNISolone SOD SUC 40 MG/1 ML VIAL IV SCH ×2 (12:05→21:00)
[2019-07-07] MEDS: ASCORBIC ACID 500 MG TABLET NG SCH ×2 (12:05→21:01)
[2019-07-07] MEDS: ATORVASTATIN 20 MG TABLET PO SCH (21:00)
[2019-07-07] MEDS ORDERED: FUROSEMIDE 40 MG/4 ML VIAL IV ONE (23:15)
[2019-07-08] MEDS: ALBUTEROL/IPRATROPIUM 3 ML NEB RESP TX SCH ×4 (00:30→19:14)
[2019-07-08] MEDS: INSULIN REGULAR 100 UNIT/ML SUBCUT SCH ×6 (01:46→21:03)
[2019-07-08] MEDS: PIPERACILLIN/TAZOBACTAM 2,250 MG in SODIUM CHLORIDE 0.9% 100 ML IV SCH ×3 (01:50→16:13)
[2019-07-08] MEDS: VANCOMYCIN INJ 1,000 MG in SODIUM CHLORIDE 0.9% 250 ML IV SCH (02:27)
[2019-07-08 03:10] LABS: ABG HCO3 31.8 MMOL/L (20-26); ABG Oxygen Saturation 99.6 % (95-100); ABG PCO2 40.4 MM HG (35-48); ABG PH 7.504 (7.35-7.45); ABG TCO2 28.5 MMOL/L (23-27); Allen Test Positive; Pt O2 Delivery Device Ventilator
[2019-07-08 04:16] LABS: Basophils % 0.1 % (0.0-0.8); Hematocrit 31.5 VOL% (42.0-52.0); Hemoglobin 9.8 GM/DL (14.0-18.0); Immature Granulocytes % 0.6 %; Lymphocytes # 0.4 10*3/uL (1.4-4.0); Lymphocytes % 2.5 % (21.2-54.2); Mean Corpuscular HGB Conc 31.1 GM/DL (32-36); Mean Corpuscular Volume 92.4 FL (87-102); Mean Platelet Volume 11.6 FL (9.6-12.0); Monocytes % 8.1 % (1.7-12.7); NRBC # 0.05 10*3/uL; Neutrophils % 88.7 % (38.7-73.9); Platelet Count 107 T/CUMM (130-400); Red Blood Count 3.41 MC/CUMM (3.8-5.5); Red Cell Distribution Width 16.2 % (9.3-17.3); White Blood Count 16.7 T/CUMM (4-12)
[2019-07-08 04:39] LABS: Calcium 8.3 MG/DL (8.5-10.1); Osmolality,Calculated 302.7 MOS/KG (273-304)
[2019-07-08 04:43] LABS: Hypochromasia 1+; Lymphocytes 2 % (20-55); Platelet Estimate Decreased; Segmented Neutrophils 91 % (50-85); Total Cells Counted 100
[2019-07-08] MEDS: methylPREDNISolone SOD SUC 40 MG/1 ML VIAL IV SCH ×3 (04:43→21:04)
[2019-07-08 04:44] LABS: Microcytosis Slight
[2019-07-08] MEDS: PHENYLEPHRINE DRIP 40 MG/250 ML PREMIX IV PRN (04:50)
[2019-07-08] MEDS: POTASSIUM CHLORIDE RIDER 20 MEQ in PREMIX 1 EACH IV PRN ×3 (05:52→12:33)
[2019-07-08] MEDS: AMIODARONE 200 MG TABLET PO SCH ×2 (08:41→21:03)
[2019-07-08] MEDS: ASPIRIN CHEW 81 MG TABLET PO SCH (08:41)
[2019-07-08] MEDS: DOCUSATE SODIUM 100 MG/10 ML UDCUP PO SCH ×2 (08:42→21:03)
[2019-07-08] MEDS: METOPROLOL TARTRATE 25 MG TABLET PO SCH ×2 (08:43→20:25)
[2019-07-08] MEDS: ASCORBIC ACID 500 MG TABLET NG SCH ×2 (08:59→21:04)
[2019-07-08] MEDS ORDERED: FUROSEMIDE 40 MG/4 ML VIAL IV SCH (09:00)
[2019-07-08] MEDS: CHLORHEXIDINE 0.12% ORAL RINSE 60 ML BOTTLE SWISH/SPIT SCH ×2 (10:09→21:03)
[2019-07-08] MEDS: CYANOCOBALAMIN 5000 MCG TABLET PO SCH (10:09)
[2019-07-08] MEDS: POTASSIUM CHLORIDE RIDER 10 MEQ in PREMIX 1 EACH IV PRN (13:32)
[2019-07-08] MEDS: VANCOMYCIN INJ 1,250 MG in SODIUM CHLORIDE 0.9% 250 ML IV SCH (14:50)
[2019-07-08] MEDS: ACETAMINOPHEN 325 MG TABLET PO PRN (17:42)
[2019-07-08] MEDS: ATORVASTATIN 20 MG TABLET PO SCH (21:03)
[2019-07-08] MEDS: MORPHINE 4 MG/1 ML VIAL IV PRN (21:07)
[2019-07-09] MEDS: INSULIN REGULAR 100 UNIT/ML SUBCUT SCH ×6 (00:20→20:21)
[2019-07-09] MEDS: ALBUTEROL/IPRATROPIUM 3 ML NEB RESP TX SCH ×4 (00:21→20:56)
[2019-07-09] MEDS: PHENYLEPHRINE DRIP 40 MG/250 ML PREMIX IV PRN (01:35)
[2019-07-09] MEDS: VANCOMYCIN INJ 1,250 MG in SODIUM CHLORIDE 0.9% 250 ML IV SCH ×2 (01:52→13:04)
[2019-07-09] MEDS: PIPERACILLIN/TAZOBACTAM 2,250 MG in SODIUM CHLORIDE 0.9% 100 ML IV SCH ×3 (01:52→16:42)
[2019-07-09 04:10] LABS: Basophils % 0.1 % (0.0-0.8); Hematocrit 31.7 VOL% (42.0-52.0); Hemoglobin 9.8 GM/DL (14.0-18.0); Immature Granulocytes % 0.7 %; Immature Granulocytes Absolute 0.13 #; Lymphocytes # 0.4 10*3/uL (1.4-4.0); Lymphocytes % 2.3 % (21.2-54.2); Mean Corpuscular HGB Conc 30.9 GM/DL (32-36); Mean Corpuscular Volume 94.1 FL (87-102); Monocytes % 6.2 % (1.7-12.7); NRBC # 0.02 10*3/uL; Neutrophils % 90.7 % (38.7-73.9); Platelet Count 132 T/CUMM (130-400); Red Blood Count 3.37 MC/CUMM (3.8-5.5); Red Cell Distribution Width 16.2 % (9.3-17.3); White Blood Count 18.2 T/CUMM (4-12)
[2019-07-09 04:30] LABS: Calcium 8.2 MG/DL (8.5-10.1); Osmolality,Calculated 306.7 MOS/KG (273-304)
[2019-07-09 04:36] LABS: Allen Test Positive; Pt O2 Delivery Device Ventilator
[2019-07-09 04:37] LABS: ABG HCO3 28.7 MMOL/L (20-26); ABG Oxygen Saturation 96.4 % (95-100); ABG PH 7.485 (7.35-7.45); ABG PO2 82.8 MM HG (80-95); ABG TCO2 29.9 MMOL/L (23-27)
[2019-07-09 04:51] LABS: Band Neutrophils 1 % (0-10); Hypochromasia 1+; Lymphocytes 1 % (20-55); Microcytosis Slight; Nucleated Red Blood Cells 1 (0-5); Segmented Neutrophils 91 % (50-85); Total Cells Counted 100
[2019-07-09] MEDS: methylPREDNISolone SOD SUC 40 MG/1 ML VIAL IV SCH ×2 (08:42→20:21)
[2019-07-09] MEDS: ASPIRIN CHEW 81 MG TABLET PO SCH (08:42)
[2019-07-09] MEDS: ASCORBIC ACID 500 MG TABLET NG SCH ×2 (08:43→20:21)
[2019-07-09] MEDS: AMIODARONE 200 MG TABLET PO SCH ×2 (08:44→20:21)
[2019-07-09] MEDS: CYANOCOBALAMIN 5000 MCG TABLET PO SCH (09:14)
[2019-07-09] MEDS: DOCUSATE SODIUM 100 MG/10 ML UDCUP PO SCH ×2 (09:14→20:21)
[2019-07-09] MEDS: METOPROLOL TARTRATE 25 MG TABLET PO SCH ×2 (09:14→20:08)
[2019-07-09] MEDS: CHLORHEXIDINE 0.12% ORAL RINSE 60 ML BOTTLE SWISH/SPIT SCH ×2 (09:14→20:09)
[2019-07-09] MEDS: ACETAMINOPHEN 325 MG TABLET PO PRN (11:57)
[2019-07-09] MEDS ORDERED: CARBOXYMETHYLCELLULOSE 1% OPH SOLN BOTH EYES PRN (13:57)
[2019-07-09] MEDS: MORPHINE 4 MG/1 ML VIAL IV PRN (20:03)
[2019-07-09] MEDS: ATORVASTATIN 20 MG TABLET PO SCH (20:21)
[2019-07-10] MEDS: INSULIN REGULAR 100 UNIT/ML SUBCUT SCH ×6 (00:33→21:14)
[2019-07-10] MEDS: PIPERACILLIN/TAZOBACTAM 2,250 MG in SODIUM CHLORIDE 0.9% 100 ML IV SCH ×3 (00:33→17:05)
[2019-07-10] MEDS: ACETAMINOPHEN 325 MG TABLET PO PRN ×2 (01:03→21:21)
[2019-07-10] MEDS: ALBUTEROL/IPRATROPIUM 3 ML NEB RESP TX SCH ×4 (01:26→19:30)
[2019-07-10] MEDS: VANCOMYCIN INJ 1,250 MG in SODIUM CHLORIDE 0.9% 250 ML IV SCH ×2 (02:15→13:50)
[2019-07-10 04:23] LABS: Basophils % 0.1 % (0.0-0.8); Hematocrit 30.6 VOL% (42.0-52.0); Hemoglobin 9.4 GM/DL (14.0-18.0); Immature Granulocytes % 2.1 %; Immature Granulocytes Absolute 0.34 #; Lymphocytes # 0.4 10*3/uL (1.4-4.0); Lymphocytes % 2.7 % (21.2-54.2); Mean Corpuscular HGB Conc 30.7 GM/DL (32-36); Mean Platelet Volume 12.1 FL (9.6-12.0); Monocytes % 5.4 % (1.7-12.7); Neutrophils % 89.7 % (38.7-73.9); Platelet Count 141 T/CUMM (130-400); Red Blood Count 3.29 MC/CUMM (3.8-5.5); Red Cell Distribution Width 16.1 % (9.3-17.3); White Blood Count 16.2 T/CUMM (4-12)
[2019-07-10 04:45] LABS: ABG Base Excess 5.4 MMOL/L (-2.5-2.5); ABG HCO3 29.3 MMOL/L (20-26); ABG PH 7.474 (7.35-7.45); ABG PO2 97.4 MM HG (80-95); ABG TCO2 26.1 MMOL/L (23-27); Allen Test Positive; Pt O2 Delivery Device Ventilator
[2019-07-10 04:50] LABS: Osmolality,Calculated 304.6 MOS/KG (273-304)
[2019-07-10 04:53] LABS: Lymphocytes 2 % (20-55); Platelet Estimate Adequate; Polychromasia Few; Segmented Neutrophils 93 % (50-85); Total Cells Counted 100
[2019-07-10] MEDS ORDERED: FUROSEMIDE 40 MG/4 ML VIAL IV ONE (07:35)
[2019-07-10] MEDS: CYANOCOBALAMIN 5000 MCG TABLET PO SCH (09:00)
[2019-07-10] MEDS: methylPREDNISolone SOD SUC 40 MG/1 ML VIAL IV SCH ×2 (09:05→21:16)
[2019-07-10] MEDS: DOCUSATE SODIUM 100 MG/10 ML UDCUP PO SCH ×2 (09:10→21:21)
[2019-07-10] MEDS: ASPIRIN CHEW 81 MG TABLET PO SCH (09:10)
[2019-07-10] MEDS: METOPROLOL TARTRATE 25 MG TABLET PO SCH ×2 (09:10→22:22)
[2019-07-10] MEDS: AMIODARONE 200 MG TABLET PO SCH ×2 (09:10→21:21)
[2019-07-10] MEDS: ASCORBIC ACID 500 MG TABLET NG SCH ×2 (09:10→21:21)
[2019-07-10] MEDS: CHLORHEXIDINE 0.12% ORAL RINSE 60 ML BOTTLE SWISH/SPIT SCH ×2 (09:15→21:22)
[2019-07-10] MEDS: oxyCODONE/ACETAMINOPHEN 5-325 MG TABLET PO PRN (18:35)
[2019-07-10] MEDS: ALBUMIN 5% 12.5 GM in PREMIX 1 EACH IV PRN (21:15)
[2019-07-10] MEDS: ATORVASTATIN 20 MG TABLET PO SCH (21:21)
[2019-07-11] MEDS: INSULIN REGULAR 100 UNIT/ML SUBCUT SCH ×6 (00:43→20:15)
[2019-07-11] MEDS: PIPERACILLIN/TAZOBACTAM 2,250 MG in SODIUM CHLORIDE 0.9% 100 ML IV SCH ×3 (01:07→16:40)
[2019-07-11] MEDS: ALBUTEROL/IPRATROPIUM 3 ML NEB RESP TX SCH ×4 (01:25→19:34)
[2019-07-11] MEDS: VANCOMYCIN INJ 1,250 MG in SODIUM CHLORIDE 0.9% 250 ML IV SCH ×2 (01:50→13:50)
[2019-07-11 03:29] LABS: Allen Test Positive; Pt O2 Delivery Device Ventilator
[2019-07-11 03:30] LABS: ABG Oxygen Saturation 99.1 % (95-100); ABG PH 7.472 (7.35-7.45); ABG TCO2 25.2 MMOL/L (23-27)
[2019-07-11 04:31] LABS: Basophils % 0.1 % (0.0-0.8); Hematocrit 30.2 VOL% (42.0-52.0); Hemoglobin 9.4 GM/DL (14.0-18.0); Immature Granulocytes % 3.6 %; Immature Granulocytes Absolute 0.73 #; Lymphocytes # 0.5 10*3/uL (1.4-4.0); Lymphocytes % 2.3 % (21.2-54.2); Mean Corpuscular HGB Conc 31.1 GM/DL (32-36); Mean Corpuscular Volume 92.6 FL (87-102); Mean Platelet Volume 11.9 FL (9.6-12.0); Monocytes % 5.2 % (1.7-12.7); Neutrophils % 88.8 % (38.7-73.9); Platelet Count 179 T/CUMM (130-400); Red Blood Count 3.26 MC/CUMM (3.8-5.5); White Blood Count 20.5 T/CUMM (4-12)
[2019-07-11 04:49] LABS: Calcium 8.5 MG/DL (8.5-10.1); Osmolality,Calculated 310.3 MOS/KG (273-304)
[2019-07-11 05:15] LABS: Lymphocytes 11 % (20-55); Total Cells Counted 100
[2019-07-11 05:16] LABS: Hypochromasia Slight; Platelet Estimate Normal; Segmented Neutrophils 84 % (50-85)
[2019-07-11] MEDS: fentaNYL INJ 1,250 MCG in SODIUM CHLORIDE 0.9% 225 ML IV PRN ×2 (08:17→21:34)
[2019-07-11] MEDS: ASCORBIC ACID 500 MG TABLET NG SCH ×2 (09:00→21:14)
[2019-07-11] MEDS: CYANOCOBALAMIN 5000 MCG TABLET PO SCH (09:00)
[2019-07-11] MEDS: methylPREDNISolone SOD SUC 40 MG/1 ML VIAL IV SCH ×2 (09:05→21:15)
[2019-07-11] MEDS: CHLORHEXIDINE 0.12% ORAL RINSE 60 ML BOTTLE SWISH/SPIT SCH ×2 (09:15→21:14)
[2019-07-11] MEDS: DOCUSATE SODIUM 100 MG/10 ML UDCUP PO SCH ×2 (09:15→21:14)
[2019-07-11] MEDS: METOPROLOL TARTRATE 25 MG TABLET PO SCH ×2 (09:15→21:14)
[2019-07-11] MEDS: AMIODARONE 200 MG TABLET PO SCH ×2 (09:15→21:14)
[2019-07-11] MEDS: ACETAMINOPHEN 325 MG TABLET PO PRN (09:15)
[2019-07-11] MEDS: ASPIRIN CHEW 81 MG TABLET PO SCH (09:15)
[2019-07-11] MEDS: ENOXAPARIN 40 MG/0.4 ML SYRINGE SUBCUT SCH (09:42)
[2019-07-11] MEDS: ONDANSETRON 4 MG/2 ML VIAL IV PRN (14:05)
[2019-07-11] MEDS: ATORVASTATIN 20 MG TABLET PO SCH (21:14)
[2019-07-11] MEDS ORDERED: AMIODARONE 450 MG/9 ML VIAL IV ONE (23:23)
[2019-07-11] MEDS ORDERED: DILTIAZEM 25 MG/5 ML VIAL IV ONE (23:24)
[2019-07-11] MEDS ORDERED: AMIODARONE 150 MG/3 ML VIAL ONE (23:24)
[2019-07-11] MEDS ORDERED: AMIODARONE INJ 50 MG in DEXTROSE 5% 100 ML IV ONE (23:30)
[2019-07-11] MEDS ORDERED: DILTIAZEM 50 MG/10 ML VIAL IV ONE (23:30)
[2019-07-12] MEDS: dilTIAZem Drip 125 MG/125 ML PREMIX IV SCH ×2 (00:05→23:46)
[2019-07-12] MEDS: AMIODARONE INJ 450 MG in DEXTROSE 5% 241 ML IV SCH ×2 (00:07→15:37)
[2019-07-12] MEDS: INSULIN REGULAR 100 UNIT/ML SUBCUT SCH ×6 (00:28→21:41)
[2019-07-12] MEDS: PIPERACILLIN/TAZOBACTAM 2,250 MG in SODIUM CHLORIDE 0.9% 100 ML IV SCH ×3 (01:13→17:26)
[2019-07-12] MEDS: ALBUTEROL/IPRATROPIUM 3 ML NEB RESP TX SCH ×4 (01:38→19:50)
[2019-07-12] MEDS: VANCOMYCIN INJ 1,250 MG in SODIUM CHLORIDE 0.9% 250 ML IV SCH ×2 (02:15→13:39)
[2019-07-12] MEDS: fentaNYL INJ 1,250 MCG in SODIUM CHLORIDE 0.9% 225 ML IV PRN ×3 (03:09→20:37)
[2019-07-12 03:23] LABS: Allen Test Positive; Pt O2 Delivery Device Ventilator
[2019-07-12 03:24] LABS: ABG Base Excess 2.3 MMOL/L (-2.5-2.5); ABG HCO3 26.4 MMOL/L (20-26); ABG Oxygen Saturation 96.4 % (95-100); ABG PCO2 51.9 MM HG (35-48); ABG PH 7.354 (7.35-7.45); ABG PO2 90.8 MM HG (80-95); ABG TCO2 25.6 MMOL/L (23-27)
[2019-07-12 04:46] LABS: Basophils % 0.2 % (0.0-0.8); Hematocrit 32.4 VOL% (42.0-52.0); Hemoglobin 9.8 GM/DL (14.0-18.0); Immature Granulocytes % 1.6 %; Immature Granulocytes Absolute 0.37 #; Lymphocytes # 0.5 10*3/uL (1.4-4.0); Lymphocytes % 2.3 % (21.2-54.2); Mean Corpuscular HGB Conc 30.2 GM/DL (32-36); Mean Corpuscular Volume 95.3 FL (87-102); Mean Platelet Volume 11.5 FL (9.6-12.0); Monocytes % 4.6 % (1.7-12.7); Neutrophils % 91.3 % (38.7-73.9); Platelet Count 211 T/CUMM (130-400)
[2019-07-12 05:07] LABS: Calcium 8.1 MG/DL (8.5-10.1); Osmolality,Calculated 300.7 MOS/KG (273-304)
[2019-07-12 05:18] LABS: Hypochromasia 1+; Lymphocytes 2 % (20-55); Platelet Estimate Adequate; Segmented Neutrophils 94 % (50-85); Total Cells Counted 100
[2019-07-12] MEDS: SULFAMETHOX/TRIMETHOPRIM 800-160 MG TABLET PO SCH ×2 (10:03→21:43)
[2019-07-12] MEDS: DOCUSATE SODIUM 100 MG/10 ML UDCUP PO SCH ×2 (10:05→21:43)
[2019-07-12] MEDS: ASCORBIC ACID 500 MG TABLET NG SCH ×2 (10:05→21:42)
[2019-07-12] MEDS: ENOXAPARIN 40 MG/0.4 ML SYRINGE SUBCUT SCH (10:06)
[2019-07-12] MEDS: ASPIRIN CHEW 81 MG TABLET PO SCH (10:06)
[2019-07-12] MEDS: methylPREDNISolone SOD SUC 40 MG/1 ML VIAL IV SCH ×2 (10:07→21:43)
[2019-07-12] MEDS: CHLORHEXIDINE 0.12% ORAL RINSE 60 ML BOTTLE SWISH/SPIT SCH ×2 (10:11→21:43)
[2019-07-12] MEDS: CYANOCOBALAMIN 5000 MCG TABLET PO SCH (10:11)
[2019-07-12] MEDS: METOPROLOL TARTRATE 25 MG TABLET PO SCH ×2 (10:19→21:43)
[2019-07-12] MEDS: AMIODARONE 200 MG TABLET PO SCH ×2 (13:36→21:42)
[2019-07-12] MEDS ORDERED: FUROSEMIDE 40 MG/4 ML VIAL IV ONE (18:29)
[2019-07-12] MEDS: ATORVASTATIN 20 MG TABLET PO SCH (21:42)
[2019-07-12] MEDS: ACETAMINOPHEN 325 MG TABLET PO PRN (21:42)
[2019-07-13] MEDS: PIPERACILLIN/TAZOBACTAM 2,250 MG in SODIUM CHLORIDE 0.9% 100 ML IV SCH (00:50)
[2019-07-13] MEDS: INSULIN REGULAR 100 UNIT/ML SUBCUT SCH ×7 (00:51→23:46)
[2019-07-13] MEDS: ALBUTEROL/IPRATROPIUM 3 ML NEB RESP TX SCH ×4 (01:49→19:58)
[2019-07-13] MEDS: VANCOMYCIN INJ 1,250 MG in SODIUM CHLORIDE 0.9% 250 ML IV SCH ×2 (02:26→15:10)
[2019-07-13 04:07] LABS: ABG Base Excess 4.7 MMOL/L (-2.5-2.5); ABG HCO3 28.6 MMOL/L (20-26); ABG PCO2 49.4 MM HG (35-48); ABG PH 7.397 (7.35-7.45); ABG TCO2 27.6 MMOL/L (23-27); Allen Test Positive; Pt O2 Delivery Device Ventilator
[2019-07-13 04:49] LABS: Basophils % 0.2 % (0.0-0.8); Hematocrit 31.1 VOL% (42.0-52.0); Hemoglobin 9.7 GM/DL (14.0-18.0); Immature Granulocytes % 1.4 %; Immature Granulocytes Absolute 0.37 #; Lymphocytes # 0.4 10*3/uL (1.4-4.0); Lymphocytes % 1.4 % (21.2-54.2); Mean Corpuscular HGB Conc 31.2 GM/DL (32-36); Mean Corpuscular Volume 93.4 FL (87-102); Mean Platelet Volume 11.7 FL (9.6-12.0); Monocytes % 2.1 % (1.7-12.7); Neutrophils % 94.9 % (38.7-73.9); Platelet Count 206 T/CUMM (130-400); Red Blood Count 3.33 MC/CUMM (3.8-5.5); Red Cell Distribution Width 15.8 % (9.3-17.3); White Blood Count 26.3 T/CUMM (4-12)
[2019-07-13] MEDS: fentaNYL INJ 1,250 MCG in SODIUM CHLORIDE 0.9% 225 ML IV PRN ×3 (05:02→19:11)
[2019-07-13 05:21] LABS: Osmolality,Calculated 300.8 MOS/KG (273-304)
[2019-07-13 05:23] LABS: Hypochromasia 1+; Microcytosis 1+; Platelet Estimate Normal; Polychromasia Few; Segmented Neutrophils 97 % (50-85); Total Cells Counted 100
[2019-07-13 05:24] LABS: Prealbumin 20.6 MG/DL (20-40)
[2019-07-13] MEDS: CEFEPIME 1,000 MG in SODIUM CHLORIDE 0.9% 100 ML IV SCH ×3 (08:49→20:27)
[2019-07-13] MEDS: DOCUSATE SODIUM 100 MG/10 ML UDCUP PO SCH ×2 (08:49→20:29)
[2019-07-13] MEDS: methylPREDNISolone SOD SUC 40 MG/1 ML VIAL IV SCH ×2 (08:49→20:28)
[2019-07-13] MEDS: SULFAMETHOX/TRIMETHOPRIM 800-160 MG TABLET PO SCH ×2 (08:49→20:28)
[2019-07-13] MEDS: ENOXAPARIN 40 MG/0.4 ML SYRINGE SUBCUT SCH (08:49)
[2019-07-13] MEDS: AMIODARONE 200 MG TABLET PO SCH ×2 (08:50→20:28)
[2019-07-13] MEDS: METOPROLOL TARTRATE 25 MG TABLET PO SCH ×2 (08:50→20:28)
[2019-07-13] MEDS: CHLORHEXIDINE 0.12% ORAL RINSE 60 ML BOTTLE SWISH/SPIT SCH ×2 (08:50→20:29)
[2019-07-13] MEDS: ASCORBIC ACID 500 MG TABLET NG SCH ×2 (08:50→20:28)
[2019-07-13] MEDS: ASPIRIN CHEW 81 MG TABLET PO SCH (08:51)
[2019-07-13] MEDS: CYANOCOBALAMIN 5000 MCG TABLET PO SCH (08:51)
[2019-07-13] MEDS: CLORAZEPATE 3.75 MG TABLET PO PRN (11:59)
[2019-07-13] MEDS: ATORVASTATIN 20 MG TABLET PO SCH (20:29)
[2019-07-13] MEDS: dilTIAZem Drip 125 MG/125 ML PREMIX IV SCH (23:13)
[2019-07-14] MEDS: fentaNYL INJ 1,250 MCG in SODIUM CHLORIDE 0.9% 225 ML IV PRN ×4 (01:17→20:20)
[2019-07-14] MEDS: CEFEPIME 1,000 MG in SODIUM CHLORIDE 0.9% 100 ML IV SCH ×4 (01:18→20:18)
[2019-07-14] MEDS: ALBUTEROL/IPRATROPIUM 3 ML NEB RESP TX SCH ×4 (01:40→19:25)
[2019-07-14] MEDS: VANCOMYCIN INJ 1,250 MG in SODIUM CHLORIDE 0.9% 250 ML IV SCH (02:02)
[2019-07-14] MEDS: INSULIN REGULAR 100 UNIT/ML SUBCUT SCH ×5 (04:01→20:18)
[2019-07-14 04:14] LABS: Allen Test Positive; Pt O2 Delivery Device Ventilator
[2019-07-14 04:15] LABS: ABG Base Excess 4.6 MMOL/L (-2.5-2.5); ABG HCO3 28.8 MMOL/L (20-26); ABG Oxygen Saturation 98.2 % (95-100); ABG PH 7.464 (7.35-7.45); ABG PO2 116.1 MM HG (80-95)
[2019-07-14] MEDS: methylPREDNISolone SOD SUC 40 MG/1 ML VIAL IV SCH ×2 (08:06→20:18)
[2019-07-14] MEDS: ASPIRIN CHEW 81 MG TABLET PO SCH (08:07)
[2019-07-14] MEDS: AMIODARONE 200 MG TABLET PO SCH ×2 (08:07→20:19)
[2019-07-14] MEDS: ASCORBIC ACID 500 MG TABLET NG SCH ×2 (08:07→20:19)
[2019-07-14] MEDS: METOPROLOL TARTRATE 25 MG TABLET PO SCH ×2 (08:07→20:19)
[2019-07-14] MEDS: ENOXAPARIN 40 MG/0.4 ML SYRINGE SUBCUT SCH (08:07)
[2019-07-14] MEDS: SULFAMETHOX/TRIMETHOPRIM 800-160 MG TABLET PO SCH ×2 (08:07→20:19)
[2019-07-14] MEDS: DOCUSATE SODIUM 100 MG/10 ML UDCUP PO SCH ×2 (08:07→20:19)
[2019-07-14] MEDS: CHLORHEXIDINE 0.12% ORAL RINSE 60 ML BOTTLE SWISH/SPIT SCH ×2 (08:09→20:22)
[2019-07-14] MEDS: CYANOCOBALAMIN 5000 MCG TABLET PO SCH (08:09)
[2019-07-14] MEDS ORDERED: FUROSEMIDE 40 MG/4 ML VIAL IV ONE (08:10)
[2019-07-14 09:58] LABS: Basophils % 0.1 % (0.0-0.8); Hematocrit 31.7 VOL% (42.0-52.0); Immature Granulocytes % 1.2 %; Immature Granulocytes Absolute 0.34 #; Lymphocytes # 0.3 10*3/uL (1.4-4.0); Lymphocytes % 0.9 % (21.2-54.2); Mean Corpuscular HGB Conc 31.5 GM/DL (32-36); Mean Corpuscular Volume 92.2 FL (87-102); Mean Platelet Volume 11.6 FL (9.6-12.0); Monocytes % 1.9 % (1.7-12.7); Neutrophils % 95.9 % (38.7-73.9); Platelet Count 230 T/CUMM (130-400); Red Blood Count 3.44 MC/CUMM (3.8-5.5); Red Cell Distribution Width 16.1 % (9.3-17.3); White Blood Count 28.3 T/CUMM (4-12)
[2019-07-14 10:17] LABS: Band Neutrophils 1 % (0-10); Hypochromasia 1+; Microcytosis 1+; Ovalocytes Slight; Platelet Estimate Adequate; Segmented Neutrophils 98 % (50-85); Total Cells Counted 100
[2019-07-14 10:24] LABS: Calcium 8.6 MG/DL (8.5-10.1)
[2019-07-14] MEDS: ATORVASTATIN 20 MG TABLET PO SCH (20:19)
[2019-07-14] MEDS: dilTIAZem Drip 125 MG/125 ML PREMIX IV SCH (22:55)
[2019-07-15] MEDS: INSULIN REGULAR 100 UNIT/ML SUBCUT SCH ×6 (00:27→21:36)
[2019-07-15] MEDS: ALBUTEROL/IPRATROPIUM 3 ML NEB RESP TX SCH ×4 (01:15→19:48)
[2019-07-15] MEDS: CEFEPIME 1,000 MG in SODIUM CHLORIDE 0.9% 100 ML IV SCH ×4 (01:28→21:40)
[2019-07-15] MEDS: fentaNYL INJ 1,250 MCG in SODIUM CHLORIDE 0.9% 225 ML IV PRN (01:59)
[2019-07-15 04:19] LABS: ABG Base Excess 4.3 MMOL/L (-2.5-2.5); ABG HCO3 28.3 MMOL/L (20-26); ABG Oxygen Saturation 99.4 % (95-100); ABG PCO2 31.7 MM HG (35-48); ABG PH 7.535 (7.35-7.45); ABG TCO2 24.4 MMOL/L (23-27); Allen Test Positive; Pt O2 Delivery Device Ventilator
[2019-07-15 06:02] LABS: Basophils % 0.1 % (0.0-0.8); Hematocrit 31.2 VOL% (42.0-52.0); Hemoglobin 9.7 GM/DL (14.0-18.0); Immature Granulocytes % 1.4 %; Immature Granulocytes Absolute 0.42 #; Lymphocytes # 0.4 10*3/uL (1.4-4.0); Lymphocytes % 1.2 % (21.2-54.2); Mean Corpuscular HGB Conc 31.1 GM/DL (32-36); Mean Corpuscular Volume 92.3 FL (87-102); Mean Platelet Volume 12.3 FL (9.6-12.0); Neutrophils % 95.3 % (38.7-73.9); Platelet Count 242 T/CUMM (130-400); Red Blood Count 3.38 MC/CUMM (3.8-5.5); Red Cell Distribution Width 16.2 % (9.3-17.3); White Blood Count 29.9 T/CUMM (4-12)
[2019-07-15 06:20] LABS: Albumin 2.1 G/DL (3.4-5.0); Calcium 8.8 MG/DL (8.5-10.1); Osmolality,Calculated 305.6 MOS/KG (273-304); Total Protein 5.9 G/DL (6.4-8.3)
[2019-07-15] MEDS ORDERED: FUROSEMIDE 40 MG/4 ML VIAL IV ONE (06:26)
[2019-07-15 06:41] LABS: Band Neutrophils 1 % (0-10); Lymphocytes 2 % (20-55); Platelet Estimate Normal; Segmented Neutrophils 93 % (50-85); Total Cells Counted 100
[2019-07-15 06:42] LABS: Hypochromasia Slight
[2019-07-15] MEDS: ASPIRIN CHEW 81 MG TABLET PO SCH (08:20)
[2019-07-15] MEDS: ASCORBIC ACID 500 MG TABLET NG SCH ×2 (08:20→21:43)
[2019-07-15] MEDS: CLORAZEPATE 3.75 MG TABLET PO PRN ×2 (08:20→23:43)
[2019-07-15] MEDS: AMIODARONE 200 MG TABLET PO SCH ×2 (08:20→21:54)
[2019-07-15] MEDS: DOCUSATE SODIUM 100 MG/10 ML UDCUP PO SCH ×2 (08:20→21:43)
[2019-07-15] MEDS: METOPROLOL TARTRATE 25 MG TABLET PO SCH ×2 (08:20→21:54)
[2019-07-15] MEDS: SULFAMETHOX/TRIMETHOPRIM 800-160 MG TABLET PO SCH ×2 (08:20→23:25)
[2019-07-15] MEDS: methylPREDNISolone SOD SUC 40 MG/1 ML VIAL IV SCH ×2 (08:25→21:40)
[2019-07-15] MEDS: ENOXAPARIN 40 MG/0.4 ML SYRINGE SUBCUT SCH (08:25)
[2019-07-15] MEDS: CHLORHEXIDINE 0.12% ORAL RINSE 60 ML BOTTLE SWISH/SPIT SCH ×2 (08:30→21:43)
[2019-07-15] MEDS: CYANOCOBALAMIN 5000 MCG TABLET PO SCH (09:00)
[2019-07-15] MEDS: oxyCODONE/ACETAMINOPHEN 5-325 MG TABLET PO PRN ×2 (17:50→23:42)
[2019-07-15] MEDS: ATORVASTATIN 20 MG TABLET PO SCH (21:43)
[2019-07-15] MEDS: dilTIAZem Drip 125 MG/125 ML PREMIX IV SCH (23:25)
[2019-07-16] MEDS: ALBUTEROL/IPRATROPIUM 3 ML NEB RESP TX SCH ×4 (00:46→18:56)
[2019-07-16] MEDS: INSULIN REGULAR 100 UNIT/ML SUBCUT SCH ×6 (00:57→22:49)
[2019-07-16 03:02] LABS: ABG Base Excess 5.9 MMOL/L (-2.5-2.5); ABG HCO3 28.8 MMOL/L (20-26); ABG Oxygen Saturation 96.4 % (95-100); ABG PCO2 35.3 MM HG (35-48); ABG PH 7.529 (7.35-7.45); ABG PO2 82.5 MM HG (80-95); ABG TCO2 29.9 MMOL/L (23-27); Allen Test Positive; Pt O2 Delivery Device Other
[2019-07-16] MEDS: CEFEPIME 1,000 MG in SODIUM CHLORIDE 0.9% 100 ML IV SCH ×4 (03:05→23:50)
[2019-07-16 06:34] LABS: Basophils % 0.1 % (0.0-0.8); Hematocrit 30.9 VOL% (42.0-52.0); Hemoglobin 9.7 GM/DL (14.0-18.0); Immature Granulocytes % 1.2 %; Immature Granulocytes Absolute 0.33 #; Lymphocytes # 0.6 10*3/uL (1.4-4.0); Lymphocytes % 2.1 % (21.2-54.2); Mean Corpuscular HGB Conc 31.4 GM/DL (32-36); Mean Corpuscular Volume 91.7 FL (87-102); Mean Platelet Volume 11.8 FL (9.6-12.0); Monocytes % 2.5 % (1.7-12.7); Neutrophils % 94.1 % (38.7-73.9); Platelet Count 210 T/CUMM (130-400); Red Blood Count 3.37 MC/CUMM (3.8-5.5); White Blood Count 27.3 T/CUMM (4-12)
[2019-07-16 06:46] LABS: Calcium 8.7 MG/DL (8.5-10.1)
[2019-07-16 06:49] LABS: Prealbumin 13.7 MG/DL (20-40)
[2019-07-16 07:06] LABS: Hypochromasia 1+; Lymphocytes 3 % (20-55); Microcytosis 1+; Platelet Estimate Adequate; Polychromasia Few; Segmented Neutrophils 95 % (50-85); Total Cells Counted 100
[2019-07-16] MEDS ORDERED: FUROSEMIDE 40 MG/4 ML VIAL IV ONE (08:36)
[2019-07-16] MEDS: VITAMIN B12 5000 MCG PO SCH (09:00)
[2019-07-16] MEDS: ASCORBIC ACID 500 MG TABLET NG SCH ×2 (09:00→22:49)
[2019-07-16] MEDS: DOCUSATE SODIUM 100 MG/10 ML UDCUP PO SCH ×2 (09:00→22:49)
[2019-07-16] MEDS: CHLORHEXIDINE 0.12% ORAL RINSE 60 ML BOTTLE SWISH/SPIT SCH ×2 (09:00→22:49)
[2019-07-16] MEDS: ENOXAPARIN 40 MG/0.4 ML SYRINGE SUBCUT SCH (10:00)
[2019-07-16] MEDS: methylPREDNISolone SOD SUC 40 MG/1 ML VIAL IV SCH ×2 (10:30→23:50)
[2019-07-16] MEDS: METOPROLOL TARTRATE 25 MG TABLET PO SCH (10:30)
[2019-07-16] MEDS: SULFAMETHOX/TRIMETHOPRIM 200-40 MG/5 ML -20 ML UDCUP NG SCH (10:30)
[2019-07-16] MEDS: ASPIRIN CHEW 81 MG TABLET PO SCH (10:30)
[2019-07-16] MEDS: AMIODARONE 200 MG TABLET PO SCH (11:30)
[2019-07-16 20:37] LABS: ABG Base Excess 5.9 MMOL/L (-2.5-2.5); ABG HCO3 29.8 MMOL/L (20-26); ABG Oxygen Saturation 95.6 % (95-100); ABG PCO2 33.2 MM HG (35-48); ABG PH 7.542 (7.35-7.45); ABG TCO2 25.9 MMOL/L (23-27); Allen Test Positive; Pt O2 Delivery Device Other
[2019-07-16] MEDS ORDERED: ETOMIDATE 20 MG/10 ML VIAL IV ONE (20:50)
[2019-07-16] MEDS ORDERED: SUCCINYLCHOLINE 200 MG/10 ML VIAL ONE (20:50)
[2019-07-16] MEDS ORDERED: LIDOCAINE 100 MG/5 ML SYRINGE ONE (21:25)
[2019-07-16] MEDS: PHENYLEPHRINE DRIP 40 MG/250 ML PREMIX IV PRN (22:35)
[2019-07-16] MEDS: ATORVASTATIN 20 MG TABLET PO SCH (22:49)
[2019-07-16] MEDS: dilTIAZem Drip 125 MG/125 ML PREMIX IV SCH (22:55)
[2019-07-17] MEDS: ALBUTEROL/IPRATROPIUM 3 ML NEB RESP TX SCH ×4 (00:25→19:56)
[2019-07-17] MEDS: SULFAMETHOX/TRIMETHOPRIM 200-40 MG/5 ML -20 ML UDCUP NG SCH ×3 (00:54→20:16)
[2019-07-17] MEDS: AMIODARONE 200 MG TABLET PO SCH ×3 (00:54→20:16)
[2019-07-17] MEDS: METOPROLOL TARTRATE 25 MG TABLET PO SCH ×3 (00:54→20:16)
[2019-07-17] MEDS: INSULIN REGULAR 100 UNIT/ML SUBCUT SCH ×6 (01:35→20:16)
[2019-07-17 03:45] LABS: ABG Base Excess 5.1 MMOL/L (-2.5-2.5); ABG Oxygen Saturation 99.4 % (95-100); ABG PCO2 34.7 MM HG (35-48); ABG PH 7.516 (7.35-7.45); ABG TCO2 25.6 MMOL/L (23-27)
[2019-07-17 07:19] LABS: Basophils % 0.1 % (0.0-0.8); Eosinophils % 0.1 % (0.00-10.9); Hematocrit 34.4 VOL% (42.0-52.0); Hemoglobin 10.8 GM/DL (14.0-18.0); Immature Granulocytes % 1.3 %; Immature Granulocytes Absolute 0.34 #; Lymphocytes # 1.5 10*3/uL (1.4-4.0); Lymphocytes % 5.3 % (21.2-54.2); Mean Corpuscular HGB Conc 31.4 GM/DL (32-36); Mean Corpuscular Volume 93.2 FL (87-102); Monocytes % 3.5 % (1.7-12.7); NRBC # 0.04 10*3/uL; Neutrophils % 89.7 % (38.7-73.9); Platelet Count 222 T/CUMM (130-400); Red Blood Count 3.69 MC/CUMM (3.8-5.5); White Blood Count 27.1 T/CUMM (4-12)
[2019-07-17 07:34] LABS: Calcium 8.8 MG/DL (8.5-10.1)
[2019-07-17 07:55] LABS: Anisocytosis 1+; Band Neutrophils 1 % (0-10); Hypochromasia 1+; Lymphocytes 5 % (20-55); Microcytosis 1+; Segmented Neutrophils 91 % (50-85); Total Cells Counted 100
[2019-07-17 07:56] LABS: Platelet Estimate Normal
[2019-07-17] MEDS: PHENYLEPHRINE DRIP 40 MG/250 ML PREMIX IV PRN ×2 (08:45→19:39)
[2019-07-17] MEDS: CEFEPIME 1,000 MG in SODIUM CHLORIDE 0.9% 100 ML IV SCH ×3 (09:19→20:14)
[2019-07-17] MEDS: methylPREDNISolone SOD SUC 40 MG/1 ML VIAL IV SCH ×2 (09:41→20:17)
[2019-07-17] MEDS: ASPIRIN CHEW 81 MG TABLET PO SCH (09:41)
[2019-07-17] MEDS: FUROSEMIDE 20 MG/2 ML VIAL IV SCH (09:42)
[2019-07-17] MEDS: ASCORBIC ACID 500 MG TABLET NG SCH ×2 (09:42→20:17)
[2019-07-17] MEDS: DOCUSATE SODIUM 100 MG/10 ML UDCUP PO SCH ×2 (09:43→20:16)
[2019-07-17] MEDS: CHLORHEXIDINE 0.12% ORAL RINSE 60 ML BOTTLE SWISH/SPIT SCH ×2 (09:43→20:17)
[2019-07-17] MEDS: ACETAMINOPHEN 325 MG TABLET PO PRN (09:49)
[2019-07-17] MEDS: ENOXAPARIN 40 MG/0.4 ML SYRINGE SUBCUT SCH (13:16)
[2019-07-17] MEDS: VITAMIN B12 5000 MCG PO SCH (13:17)
[2019-07-17] MEDS: ALBUMIN 5% 12.5 GM in PREMIX 1 EACH IV PRN ×2 (19:12→19:42)
[2019-07-17] MEDS: fentaNYL INJ 1,250 MCG in SODIUM CHLORIDE 0.9% 225 ML IV PRN (19:14)
[2019-07-17] MEDS: ATORVASTATIN 20 MG TABLET PO SCH (20:16)
[2019-07-17] MEDS: dilTIAZem Drip 125 MG/125 ML PREMIX IV SCH (23:28)
[2019-07-18] MEDS: INSULIN REGULAR 100 UNIT/ML SUBCUT SCH ×6 (00:46→19:51)
[2019-07-18] MEDS: fentaNYL INJ 1,250 MCG in SODIUM CHLORIDE 0.9% 225 ML IV PRN ×5 (01:11→19:01)
[2019-07-18] MEDS: ALBUTEROL/IPRATROPIUM 3 ML NEB RESP TX SCH ×4 (01:23→19:13)
[2019-07-18] MEDS: CEFEPIME 1,000 MG in SODIUM CHLORIDE 0.9% 100 ML IV SCH ×4 (02:33→20:00)
[2019-07-18 04:23] LABS: ABG Base Excess 0.4 MMOL/L (-2.5-2.5); ABG HCO3 24.6 MMOL/L (20-26); ABG PCO2 37.9 MM HG (35-48); ABG PO2 129.5 MM HG (80-95); ABG TCO2 25.8 MMOL/L (23-27); Allen Test Positive; Pt O2 Delivery Device Ventilator
[2019-07-18] MEDS: ASPIRIN CHEW 81 MG TABLET PO SCH (09:53)
[2019-07-18] MEDS: methylPREDNISolone SOD SUC 40 MG/1 ML VIAL IV SCH ×2 (09:53→19:59)
[2019-07-18] MEDS: DOCUSATE SODIUM 100 MG/10 ML UDCUP PO SCH ×2 (09:54→19:59)
[2019-07-18] MEDS: AMIODARONE 200 MG TABLET PO SCH ×2 (09:54→19:59)
[2019-07-18] MEDS: METOPROLOL TARTRATE 25 MG TABLET PO SCH (09:54)
[2019-07-18] MEDS: FUROSEMIDE 20 MG/2 ML VIAL IV SCH (09:54)
[2019-07-18] MEDS: ENOXAPARIN 40 MG/0.4 ML SYRINGE SUBCUT SCH (09:54)
[2019-07-18] MEDS: SULFAMETHOX/TRIMETHOPRIM 200-40 MG/5 ML -20 ML UDCUP NG SCH ×2 (09:54→19:59)
[2019-07-18] MEDS: CHLORHEXIDINE 0.12% ORAL RINSE 60 ML BOTTLE SWISH/SPIT SCH ×2 (09:55→20:00)
[2019-07-18] MEDS: VITAMIN B12 5000 MCG PO SCH (09:55)
[2019-07-18] MEDS: ASCORBIC ACID 500 MG TABLET NG SCH ×2 (09:55→19:59)
[2019-07-18] MEDS: CLORAZEPATE 3.75 MG TABLET PO PRN (10:11)
[2019-07-18 10:59] LABS: Basophils % 0.1 % (0.0-0.8); Hematocrit 31.6 VOL% (42.0-52.0); Hemoglobin 9.7 GM/DL (14.0-18.0); Lymphocytes # 0.7 10*3/uL (1.4-4.0); Lymphocytes % 2.2 % (21.2-54.2); Mean Corpuscular HGB Conc 30.7 GM/DL (32-36); Mean Platelet Volume 13.4 FL (9.6-12.0); Monocytes % 2.6 % (1.7-12.7); Neutrophils % 94.1 % (38.7-73.9); Platelet Count 195 T/CUMM (130-400); Red Blood Count 3.36 MC/CUMM (3.8-5.5); Red Cell Distribution Width 16.9 % (9.3-17.3); White Blood Count 29.8 T/CUMM (4-12)
[2019-07-18] MEDS ORDERED: BISACODYL 10 MG SUPP RECTAL ONE (11:15)
[2019-07-18 11:23] LABS: Anisocytosis 1+; Band Neutrophils 5 % (0-10); Burr Cells Few; Lymphocytes 7 % (20-55); Platelet Estimate Normal; Poikilocytosis 1+; Segmented Neutrophils 85 % (50-85); Total Cells Counted 100
[2019-07-18 12:48] LABS: Albumin 2.4 G/DL (3.4-5.0); Bilirubin,Total 0.7 MG/DL (0.2-1.0); Osmolality,Calculated 303.7 MOS/KG (273-304); Total Protein 6.1 G/DL (6.4-8.3)
[2019-07-18] MEDS: ATORVASTATIN 20 MG TABLET PO SCH (19:59)
[2019-07-18] MEDS: dilTIAZem Drip 125 MG/125 ML PREMIX IV SCH (22:37)
[2019-07-18] MEDS: fentaNYL INJ 2,500 MCG in SODIUM CHLORIDE 0.9% 450 ML IV PRN (22:56)
[2019-07-19] MEDS: INSULIN REGULAR 100 UNIT/ML SUBCUT SCH ×7 (00:20→23:34)
[2019-07-19] MEDS: ALBUTEROL/IPRATROPIUM 3 ML NEB RESP TX SCH ×4 (01:00→19:30)
[2019-07-19] MEDS: CEFEPIME 1,000 MG in SODIUM CHLORIDE 0.9% 100 ML IV SCH ×4 (02:45→20:24)
[2019-07-19 04:21] LABS: Basophils % 0.1 % (0.0-0.8); Hematocrit 30.9 VOL% (42.0-52.0); Hemoglobin 9.3 GM/DL (14.0-18.0); Immature Granulocytes Absolute 0.28 #; Lymphocytes # 0.3 10*3/uL (1.4-4.0); Mean Corpuscular HGB Conc 30.1 GM/DL (32-36); Mean Corpuscular Volume 94.8 FL (87-102); Mean Platelet Volume 11.8 FL (9.6-12.0); Monocytes % 2.3 % (1.7-12.7); Neutrophils % 95.6 % (38.7-73.9); Platelet Count 191 T/CUMM (130-400); Red Blood Count 3.26 MC/CUMM (3.8-5.5); White Blood Count 26.8 T/CUMM (4-12)
[2019-07-19 04:43] LABS: Calcium 8.1 MG/DL (8.5-10.1); Osmolality,Calculated 303.7 MOS/KG (273-304)
[2019-07-19 05:28] LABS: ABG Base Excess 1.1 MMOL/L (-2.5-2.5); ABG Oxygen Saturation 98.2 % (95-100); ABG PCO2 36.6 MM HG (35-48); ABG PH 7.452 (7.35-7.45); ABG PO2 120.1 MM HG (80-95); ABG TCO2 26.1 MMOL/L (23-27); Allen Test Positive; Pt O2 Delivery Device Ventilator
[2019-07-19 05:58] LABS: Anisocytosis 1+; Lymphocytes 1 % (20-55); Segmented Neutrophils 97 % (50-85); Total Cells Counted 100
[2019-07-19 05:59] LABS: Acanthocytes Few; Platelet Estimate Normal
[2019-07-19] MEDS: fentaNYL INJ 2,500 MCG in SODIUM CHLORIDE 0.9% 450 ML IV PRN ×2 (07:38→15:40)
[2019-07-19] MEDS: methylPREDNISolone SOD SUC 40 MG/1 ML VIAL IV SCH ×2 (07:48→20:23)
[2019-07-19] MEDS: FUROSEMIDE 20 MG/2 ML VIAL IV SCH (08:16)
[2019-07-19] MEDS: ASPIRIN CHEW 81 MG TABLET PO SCH (08:19)
[2019-07-19] MEDS: SULFAMETHOX/TRIMETHOPRIM 200-40 MG/5 ML -20 ML UDCUP NG SCH ×2 (08:19→20:24)
[2019-07-19] MEDS: ENOXAPARIN 40 MG/0.4 ML SYRINGE SUBCUT SCH (08:20)
[2019-07-19] MEDS: DOCUSATE SODIUM 100 MG/10 ML UDCUP PO SCH ×2 (08:20→20:24)
[2019-07-19] MEDS: VITAMIN B12 5000 MCG PO SCH (08:20)
[2019-07-19] MEDS: AMIODARONE 200 MG TABLET PO SCH ×2 (08:20→20:24)
[2019-07-19] MEDS: ASCORBIC ACID 500 MG TABLET NG SCH ×2 (08:21→20:24)
[2019-07-19] MEDS: CHLORHEXIDINE 0.12% ORAL RINSE 60 ML BOTTLE SWISH/SPIT SCH ×2 (08:21→20:24)
[2019-07-19] MEDS: CLORAZEPATE 3.75 MG TABLET PO PRN (11:09)
[2019-07-19] MEDS: LACTULOSE 20 GM/30 ML UDCUP PO PRN (16:19)
[2019-07-19] MEDS: ATORVASTATIN 20 MG TABLET PO SCH (20:25)
[2019-07-19] MEDS: dilTIAZem Drip 125 MG/125 ML PREMIX IV SCH (23:28)
[2019-07-20] MEDS: ALBUTEROL/IPRATROPIUM 3 ML NEB RESP TX SCH ×4 (00:07→19:31)
[2019-07-20] MEDS: CEFEPIME 1,000 MG in SODIUM CHLORIDE 0.9% 100 ML IV SCH ×4 (03:07→20:42)
[2019-07-20] MEDS: fentaNYL INJ 2,500 MCG in SODIUM CHLORIDE 0.9% 450 ML IV PRN ×2 (03:08→15:40)
[2019-07-20] MEDS: INSULIN REGULAR 100 UNIT/ML SUBCUT SCH ×5 (03:38→20:43)
[2019-07-20 04:48] LABS: Basophils % 0.1 % (0.0-0.8); Hematocrit 29.8 VOL% (42.0-52.0); Hemoglobin 9.2 GM/DL (14.0-18.0); Immature Granulocytes % 1.1 %; Immature Granulocytes Absolute 0.33 #; Lymphocytes # 0.2 10*3/uL (1.4-4.0); Lymphocytes % 0.5 % (21.2-54.2); Mean Corpuscular HGB Conc 30.9 GM/DL (32-36); Mean Corpuscular Volume 93.7 FL (87-102); Monocytes % 2.4 % (1.7-12.7); Neutrophils % 95.9 % (38.7-73.9); Platelet Count 186 T/CUMM (130-400); Red Blood Count 3.18 MC/CUMM (3.8-5.5); White Blood Count 30.9 T/CUMM (4-12)
[2019-07-20 04:59] LABS: ABG Base Excess 2.2 MMOL/L (-2.5-2.5); ABG HCO3 26.4 MMOL/L (20-26); ABG Oxygen Saturation 99.1 % (95-100); ABG PCO2 39.1 MM HG (35-48); ABG PH 7.438 (7.35-7.45); ABG TCO2 24.1 MMOL/L (23-27); Allen Test Positive; Pt O2 Delivery Device Ventilator
[2019-07-20 05:17] LABS: Hypochromasia 1+; Lymphocytes 1 % (20-55); Segmented Neutrophils 97 % (50-85); Total Cells Counted 100
[2019-07-20 05:18] LABS: Microcytosis 1+; Target Cells Slight
[2019-07-20 05:19] LABS: Ovalocytes Slight; Platelet Estimate Adequate
[2019-07-20 05:20] LABS: Polychromasia Slight
[2019-07-20 05:29] LABS: Osmolality,Calculated 298.8 MOS/KG (273-304)
[2019-07-20 05:35] LABS: Prealbumin 21.7 MG/DL (20-40)
[2019-07-20] MEDS: methylPREDNISolone SOD SUC 40 MG/1 ML VIAL IV SCH ×2 (07:48→20:42)
[2019-07-20] MEDS: FUROSEMIDE 20 MG/2 ML VIAL IV SCH (07:50)
[2019-07-20] MEDS: VITAMIN B12 5000 MCG PO SCH (09:00)
[2019-07-20] MEDS: CHLORHEXIDINE 0.12% ORAL RINSE 60 ML BOTTLE SWISH/SPIT SCH ×2 (09:15→20:43)
[2019-07-20] MEDS: AMIODARONE 200 MG TABLET PO SCH ×2 (09:20→20:42)
[2019-07-20] MEDS: ASCORBIC ACID 500 MG TABLET NG SCH ×2 (09:20→20:42)
[2019-07-20] MEDS: SULFAMETHOX/TRIMETHOPRIM 200-40 MG/5 ML -20 ML UDCUP NG SCH ×2 (09:20→20:38)
[2019-07-20] MEDS: ASPIRIN CHEW 81 MG TABLET PO SCH (09:20)
[2019-07-20] MEDS: DOCUSATE SODIUM 100 MG/10 ML UDCUP PO SCH ×2 (09:20→21:04)
[2019-07-20] MEDS: ATORVASTATIN 20 MG TABLET PO SCH (20:42)
[2019-07-20] MEDS: dilTIAZem Drip 125 MG/125 ML PREMIX IV SCH (22:36)
[2019-07-21] MEDS: INSULIN REGULAR 100 UNIT/ML SUBCUT SCH ×6 (00:50→20:36)
[2019-07-21] MEDS: ALBUTEROL/IPRATROPIUM 3 ML NEB RESP TX SCH ×4 (00:55→19:15)
[2019-07-21] MEDS: CEFEPIME 1,000 MG in SODIUM CHLORIDE 0.9% 100 ML IV SCH ×4 (02:51→20:40)
[2019-07-21] MEDS: fentaNYL INJ 2,500 MCG in SODIUM CHLORIDE 0.9% 450 ML IV PRN ×3 (03:45→18:16)
[2019-07-21 04:12] LABS: ABG Base Excess -0.4 MMOL/L (-2.5-2.5); ABG HCO3 24.1 MMOL/L (20-26); ABG Oxygen Saturation 98.9 % (95-100); ABG PCO2 42.7 MM HG (35-48); ABG PH 7.373 (7.35-7.45); ABG TCO2 22.8 MMOL/L (23-27); Allen Test Positive; Pt O2 Delivery Device Ventilator
[2019-07-21 04:56] LABS: Basophils % 0.1 % (0.0-0.8); Hematocrit 31.5 VOL% (42.0-52.0); Hemoglobin 9.2 GM/DL (14.0-18.0); Immature Granulocytes % 1.4 %; Immature Granulocytes Absolute 0.45 #; Lymphocytes # 1.2 10*3/uL (1.4-4.0); Lymphocytes % 3.6 % (21.2-54.2); Mean Corpuscular HGB Conc 29.2 GM/DL (32-36); Mean Corpuscular Volume 99.1 FL (87-102); Mean Platelet Volume 11.8 FL (9.6-12.0); NRBC # 0.02 10*3/uL; Neutrophils % 91.9 % (38.7-73.9); Platelet Count 159 T/CUMM (130-400); Red Blood Count 3.18 MC/CUMM (3.8-5.5); Red Cell Distribution Width 16.7 % (9.3-17.3); White Blood Count 32.9 T/CUMM (4-12)
[2019-07-21 05:19] LABS: Band Neutrophils 1 % (0-10); Calcium 8.1 MG/DL (8.5-10.1); Hypochromasia Slight; Lymphocytes 3 % (20-55); Osmolality,Calculated 294.1 MOS/KG (273-304); Platelet Estimate Normal; Polychromasia Slight; Segmented Neutrophils 92 % (50-85); Total Cells Counted 100
[2019-07-21 05:20] LABS: Anisocytosis 1+; Macrocytosis Slight
[2019-07-21] MEDS ORDERED: LIDOCAINE 1%/EPI INJ 20 ML VIAL ONE (06:25)
[2019-07-21] MEDS: FUROSEMIDE 20 MG/2 ML VIAL IV SCH (07:30)
[2019-07-21] MEDS: methylPREDNISolone SOD SUC 40 MG/1 ML VIAL IV SCH ×2 (07:30→20:37)
[2019-07-21] MEDS: VITAMIN B12 5000 MCG PO SCH (09:00)
[2019-07-21] MEDS: CHLORHEXIDINE 0.12% ORAL RINSE 60 ML BOTTLE SWISH/SPIT SCH ×2 (09:15→20:40)
[2019-07-21] MEDS ORDERED: METOPROLOL TARTRATE 25 MG TABLET PO SCH (10:30)
[2019-07-21] MEDS ORDERED: SEVOFLURANE 1 UNIT/15 MINUTE INH ONE (11:09)
[2019-07-21] MEDS ORDERED: ROCURONIUM 100 MG/10 ML VIAL IV ONE (11:10)
[2019-07-21] MEDS ORDERED: MIDAZOLAM 2 MG/2 ML VIAL ONE (11:10)
[2019-07-21] MEDS: LACTULOSE 20 GM/30 ML UDCUP PO PRN (12:30)
[2019-07-21] MEDS: ASCORBIC ACID 500 MG TABLET NG SCH ×2 (12:30→20:37)
[2019-07-21] MEDS: DOCUSATE SODIUM 100 MG/10 ML UDCUP PO SCH ×2 (12:30→20:38)
[2019-07-21] MEDS: ASPIRIN CHEW 81 MG TABLET PO SCH (12:30)
[2019-07-21] MEDS: AMIODARONE 200 MG TABLET PO SCH ×2 (12:30→20:38)
[2019-07-21] MEDS: oxyCODONE/ACETAMINOPHEN 5-325 MG TABLET PO PRN (12:30)
[2019-07-21] MEDS: SULFAMETHOX/TRIMETHOPRIM 200-40 MG/5 ML -20 ML UDCUP NG SCH ×2 (12:30→20:38)
[2019-07-21] MEDS: ATORVASTATIN 20 MG TABLET PO SCH (20:37)
[2019-07-21] MEDS: CLORAZEPATE 3.75 MG TABLET PO PRN (20:38)
[2019-07-21] MEDS: METOPROLOL TARTRATE 25 MG TABLET PO SCH (20:38)
[2019-07-22] MEDS: dilTIAZem Drip 125 MG/125 ML PREMIX IV SCH ×2 (00:12→23:31)
[2019-07-22] MEDS: INSULIN REGULAR 100 UNIT/ML SUBCUT SCH ×6 (00:13→20:05)
[2019-07-22] MEDS: ALBUTEROL/IPRATROPIUM 3 ML NEB RESP TX SCH ×4 (02:00→20:03)
[2019-07-22] MEDS: CEFEPIME 1,000 MG in SODIUM CHLORIDE 0.9% 100 ML IV SCH ×4 (02:33→21:19)
[2019-07-22] MEDS: fentaNYL INJ 2,500 MCG in SODIUM CHLORIDE 0.9% 450 ML IV PRN ×2 (04:09→19:40)
[2019-07-22 04:17] LABS: ABG Base Excess 1.5 MMOL/L (-2.5-2.5); ABG HCO3 25.8 MMOL/L (20-26); ABG Oxygen Saturation 99.4 % (95-100); ABG PCO2 30.2 MM HG (35-48); ABG PH 7.505 (7.35-7.45); ABG TCO2 21.1 MMOL/L (23-27); Allen Test Positive; Pt O2 Delivery Device Ventilator
[2019-07-22 05:54] LABS: Basophils % 0.1 % (0.0-0.8); Hematocrit 30.4 VOL% (42.0-52.0); Hemoglobin 9.3 GM/DL (14.0-18.0); Immature Granulocytes Absolute 0.26 #; Lymphocytes # 0.3 10*3/uL (1.4-4.0); Lymphocytes % 1.1 % (21.2-54.2); Mean Corpuscular HGB Conc 30.6 GM/DL (32-36); Mean Corpuscular Volume 95.3 FL (87-102); Mean Platelet Volume 12.3 FL (9.6-12.0); Monocytes % 1.8 % (1.7-12.7); Platelet Count 134 T/CUMM (130-400); Red Blood Count 3.19 MC/CUMM (3.8-5.5); White Blood Count 24.9 T/CUMM (4-12)
[2019-07-22 06:00] LABS: INR 1.1; PT Patient Result 11.5 SECS (9.6-12.2)
[2019-07-22 06:23] LABS: Hypochromasia 2+; Lymphocytes 1 % (20-55); Platelet Estimate Decreased; Segmented Neutrophils 99 % (50-85); Total Cells Counted 100
[2019-07-22 06:26] LABS: Calcium 7.9 MG/DL (8.5-10.1); Osmolality,Calculated 290.3 MOS/KG (273-304)
[2019-07-22] MEDS ORDERED: LACTATED RINGERS 1,000 ML IV ONE ×2 (08:00→11:09)
[2019-07-22] MEDS: VITAMIN B12 5000 MCG PO SCH (09:37)
[2019-07-22] MEDS: DOCUSATE SODIUM 100 MG/10 ML UDCUP PO SCH ×2 (09:37→21:14)
[2019-07-22] MEDS: METOPROLOL TARTRATE 25 MG TABLET PO SCH ×2 (09:37→21:14)
[2019-07-22] MEDS: CLORAZEPATE 3.75 MG TABLET PO SCH ×3 (09:38→21:14)
[2019-07-22] MEDS: ASCORBIC ACID 500 MG TABLET NG SCH ×2 (09:38→21:14)
[2019-07-22] MEDS: FUROSEMIDE 20 MG/2 ML VIAL IV SCH (10:05)
[2019-07-22] MEDS: methylPREDNISolone SOD SUC 40 MG/1 ML VIAL IV SCH ×2 (10:05→20:22)
[2019-07-22] MEDS: CHLORHEXIDINE 0.12% ORAL RINSE 60 ML BOTTLE SWISH/SPIT SCH ×2 (10:06→21:15)
[2019-07-22] MEDS ORDERED: propofoL 200 MG/20 ML VIAL IV ONE (11:08)
[2019-07-22] MEDS ORDERED: PHENYLEPHRINE 1 MG/10 ML SYRINGE IV ONE (11:09)
[2019-07-22] MEDS: AMIODARONE 200 MG TABLET PO SCH ×2 (11:32→21:14)
[2019-07-22] MEDS: SULFAMETHOX/TRIMETHOPRIM 200-40 MG/5 ML -20 ML UDCUP NG SCH ×2 (11:32→21:14)
[2019-07-22] MEDS: ASPIRIN CHEW 81 MG TABLET PO SCH (13:10)
[2019-07-22] MEDS: ATORVASTATIN 20 MG TABLET PO SCH (21:14)
[2019-07-23] MEDS: INSULIN REGULAR 100 UNIT/ML SUBCUT SCH ×6 (00:06→20:50)
[2019-07-23] MEDS: ALBUTEROL/IPRATROPIUM 3 ML NEB RESP TX SCH ×4 (02:26→19:10)
[2019-07-23] MEDS: CLORAZEPATE 3.75 MG TABLET PO SCH ×4 (03:17→20:52)
[2019-07-23] MEDS: CEFEPIME 1,000 MG in SODIUM CHLORIDE 0.9% 100 ML IV SCH ×4 (03:19→20:52)
[2019-07-23 04:41] LABS: ABG HCO3 24.5 MMOL/L (20-26); ABG Oxygen Saturation 98.8 % (95-100); ABG PCO2 39.3 MM HG (35-48); ABG PH 7.405 (7.35-7.45); ABG TCO2 22.4 MMOL/L (23-27); Allen Test Positive; Pt O2 Delivery Device Ventilator
[2019-07-23] MEDS: fentaNYL INJ 2,500 MCG in SODIUM CHLORIDE 0.9% 450 ML IV PRN (05:00)
[2019-07-23 06:01] LABS: Hematocrit 27.4 VOL% (42.0-52.0); Hemoglobin 8.7 GM/DL (14.0-18.0); Immature Granulocytes % 0.9 %; Immature Granulocytes Absolute 0.19 #; Lymphocytes # 0.2 10*3/uL (1.4-4.0); Mean Corpuscular HGB Conc 31.8 GM/DL (32-36); Mean Corpuscular Volume 94.5 FL (87-102); Mean Platelet Volume 12.2 FL (9.6-12.0); Monocytes % 1.6 % (1.7-12.7); Neutrophils % 96.5 % (38.7-73.9); Platelet Count 88 T/CUMM (130-400); Red Cell Distribution Width 16.8 % (9.3-17.3); White Blood Count 20.1 T/CUMM (4-12)
[2019-07-23 06:32] LABS: Eosinophils 1 % (0-10); Lymphocytes 1 % (20-55); Segmented Neutrophils 97 % (50-85); Total Cells Counted 100
[2019-07-23 06:33] LABS: Anisocytosis 1+; Macrocytosis 1+; Ovalocytes Slight; Platelet Estimate Decreased
[2019-07-23 06:34] LABS: Hypochromasia 1+
[2019-07-23 06:43] LABS: Albumin 1.9 G/DL (3.4-5.0); Bilirubin,Total 0.7 MG/DL (0.2-1.0); Calcium 7.5 MG/DL (8.5-10.1); Osmolality,Calculated 282.7 MOS/KG (273-304); Total Protein 5.1 G/DL (6.4-8.3)
[2019-07-23 07:01] LABS: Prealbumin 12.7 MG/DL (20-40)
[2019-07-23] MEDS: METOPROLOL TARTRATE 25 MG TABLET PO SCH ×2 (08:19→20:52)
[2019-07-23] MEDS: FUROSEMIDE 20 MG/2 ML VIAL IV SCH (08:19)
[2019-07-23] MEDS: ASCORBIC ACID 500 MG TABLET NG SCH ×2 (08:19→20:53)
[2019-07-23] MEDS: methylPREDNISolone SOD SUC 40 MG/1 ML VIAL IV SCH ×2 (08:19→20:51)
[2019-07-23] MEDS: DOCUSATE SODIUM 100 MG/10 ML UDCUP PO SCH ×2 (08:20→20:51)
[2019-07-23] MEDS: AMIODARONE 200 MG TABLET PO SCH ×2 (08:20→20:52)
[2019-07-23] MEDS: ASPIRIN CHEW 81 MG TABLET PO SCH (08:20)
[2019-07-23] MEDS: VITAMIN B12 5000 MCG PO SCH (08:21)
[2019-07-23] MEDS: CHLORHEXIDINE 0.12% ORAL RINSE 60 ML BOTTLE SWISH/SPIT SCH ×2 (08:21→20:52)
[2019-07-23] MEDS: SULFAMETHOX/TRIMETHOPRIM 200-40 MG/5 ML -20 ML UDCUP NG SCH ×2 (08:28→20:51)
[2019-07-23] MEDS: oxyCODONE/ACETAMINOPHEN 5-325 MG TABLET PO PRN (14:24)
[2019-07-23] MEDS: ATORVASTATIN 20 MG TABLET PO SCH (20:52)
[2019-07-24] MEDS: INSULIN REGULAR 100 UNIT/ML SUBCUT SCH ×6 (01:05→19:54)
[2019-07-24] MEDS: ALBUTEROL/IPRATROPIUM 3 ML NEB RESP TX SCH ×4 (01:40→19:30)
[2019-07-24] MEDS: dilTIAZem Drip 125 MG/125 ML PREMIX IV SCH ×2 (02:44→23:50)
[2019-07-24] MEDS: CEFEPIME 1,000 MG in SODIUM CHLORIDE 0.9% 100 ML IV SCH ×4 (03:00→20:36)
[2019-07-24 03:29] LABS: ABG Base Excess 0.3 MMOL/L (-2.5-2.5); ABG HCO3 24.7 MMOL/L (20-26); ABG Oxygen Saturation 97.5 % (95-100); ABG PCO2 41.2 MM HG (35-48); ABG PH 7.394 (7.35-7.45); ABG PO2 93.6 MM HG (80-95); ABG TCO2 23.3 MMOL/L (23-27); Allen Test Positive; Pt O2 Delivery Device Ventilator
[2019-07-24] MEDS: CLORAZEPATE 3.75 MG TABLET PO SCH ×4 (03:58→20:16)
[2019-07-24] MEDS: fentaNYL INJ 2,500 MCG in SODIUM CHLORIDE 0.9% 450 ML IV PRN ×2 (04:55→20:15)
[2019-07-24] MEDS: methylPREDNISolone SOD SUC 40 MG/1 ML VIAL IV SCH ×2 (08:25→20:12)
[2019-07-24] MEDS: CHLORHEXIDINE 0.12% ORAL RINSE 60 ML BOTTLE SWISH/SPIT SCH ×2 (08:30→20:17)
[2019-07-24] MEDS: FUROSEMIDE 20 MG/2 ML VIAL IV SCH (08:30)
[2019-07-24] MEDS: VITAMIN B12 5000 MCG PO SCH (08:30)
[2019-07-24] MEDS: ASPIRIN CHEW 81 MG TABLET PO SCH (08:30)
[2019-07-24] MEDS: DOCUSATE SODIUM 100 MG/10 ML UDCUP PO SCH ×2 (08:30→20:16)
[2019-07-24] MEDS: METOPROLOL TARTRATE 25 MG TABLET PO SCH ×3 (08:30→23:44)
[2019-07-24] MEDS: SULFAMETHOX/TRIMETHOPRIM 200-40 MG/5 ML -20 ML UDCUP NG SCH ×2 (08:30→20:17)
[2019-07-24] MEDS: AMIODARONE 200 MG TABLET PO SCH ×2 (08:30→20:16)
[2019-07-24] MEDS: ASCORBIC ACID 500 MG TABLET NG SCH ×2 (09:00→22:05)
[2019-07-24] MEDS: ALBUMIN 5% 12.5 GM in PREMIX 1 EACH IV PRN ×4 (09:10→16:35)
[2019-07-24] MEDS: ENOXAPARIN 40 MG/0.4 ML SYRINGE SUBCUT SCH (09:12)
[2019-07-24] MEDS: APIXABAN 5 MG TABLET PO SCH ×2 (13:05→20:16)
[2019-07-24] MEDS: ATORVASTATIN 20 MG TABLET PO SCH (20:16)
[2019-07-24] MEDS: oxyCODONE/ACETAMINOPHEN 5-325 MG TABLET PO PRN (20:20)
[2019-07-25] MEDS: INSULIN REGULAR 100 UNIT/ML SUBCUT SCH ×6 (00:03→19:45)
[2019-07-25] MEDS: ALBUTEROL/IPRATROPIUM 3 ML NEB RESP TX SCH ×4 (01:10→19:23)
[2019-07-25] MEDS: CEFEPIME 1,000 MG in SODIUM CHLORIDE 0.9% 100 ML IV SCH ×4 (03:17→20:15)
[2019-07-25] MEDS: CLORAZEPATE 3.75 MG TABLET PO SCH ×4 (03:17→20:16)
[2019-07-25 04:35] LABS: ABG Base Excess 1.9 MMOL/L (-2.5-2.5); ABG HCO3 26.1 MMOL/L (20-26); ABG Oxygen Saturation 98.2 % (95-100); ABG PCO2 38.2 MM HG (35-48); ABG PH 7.441 (7.35-7.45); ABG PO2 94.7 MM HG (80-95); ABG TCO2 24.2 MMOL/L (23-27); Allen Test Positive; Pt O2 Delivery Device Ventilator
[2019-07-25 04:45] LABS: Basophils % 0.1 % (0.0-0.8); Hematocrit 26.4 VOL% (42.0-52.0); Hemoglobin 8.1 GM/DL (14.0-18.0); Immature Granulocytes % 0.5 %; Immature Granulocytes Absolute 0.08 #; Lymphocytes # 0.2 10*3/uL (1.4-4.0); Lymphocytes % 0.9 % (21.2-54.2); Mean Corpuscular HGB Conc 30.7 GM/DL (32-36); Mean Corpuscular Volume 94.6 FL (87-102); Mean Platelet Volume 12.2 FL (9.6-12.0); Monocytes % 2.2 % (1.7-12.7); NRBC # 0.03 10*3/uL; Neutrophils % 96.3 % (38.7-73.9); Red Blood Count 2.79 MC/CUMM (3.8-5.5); Red Cell Distribution Width 16.8 % (9.3-17.3); White Blood Count 17.6 T/CUMM (4-12)
[2019-07-25 04:46] LABS: Platelet Count 73 T/CUMM (130-400)
[2019-07-25 05:02] LABS: Calcium 7.8 MG/DL (8.5-10.1); Osmolality,Calculated 284.5 MOS/KG (273-304)
[2019-07-25 05:05] LABS: Albumin 2.8 G/DL (3.4-5.0); Bilirubin,Total 0.8 MG/DL (0.2-1.0); Calcium 8.3 MG/DL (8.5-10.1); Total Protein 5.9 G/DL (6.4-8.3)
[2019-07-25 05:11] LABS: Band Neutrophils 1 % (0-10); Hypochromasia 1+; Lymphocytes 1 % (20-55); Segmented Neutrophils 97 % (50-85); Total Cells Counted 100
[2019-07-25 05:12] LABS: Acanthocytes Few; Anisocytosis 1+; Burr Cells Slight; Macrocytosis 1+
[2019-07-25 05:13] LABS: Platelet Estimate Decreased
[2019-07-25] MEDS: FUROSEMIDE 20 MG/2 ML VIAL IV SCH (08:05)
[2019-07-25] MEDS: methylPREDNISolone SOD SUC 40 MG/1 ML VIAL IV SCH ×2 (08:05→20:15)
[2019-07-25] MEDS: METOCLOPRAMIDE 10 MG/2 ML VIAL IV SCH ×2 (09:15→17:05)
[2019-07-25] MEDS: PANTOPRAZOLE 40 MG VIAL IV SCH (09:15)
[2019-07-25] MEDS: ASCORBIC ACID 500 MG TABLET NG SCH ×2 (09:30→20:16)
[2019-07-25] MEDS: ASPIRIN CHEW 81 MG TABLET PO SCH (09:30)
[2019-07-25] MEDS: APIXABAN 5 MG TABLET PO SCH ×2 (09:30→20:15)
[2019-07-25] MEDS: VITAMIN B12 5000 MCG PO SCH (09:30)
[2019-07-25] MEDS: METOPROLOL TARTRATE 25 MG TABLET PO SCH ×2 (09:30→20:15)
[2019-07-25] MEDS: CHLORHEXIDINE 0.12% ORAL RINSE 60 ML BOTTLE SWISH/SPIT SCH ×2 (09:30→20:15)
[2019-07-25] MEDS: DOCUSATE SODIUM 100 MG/10 ML UDCUP PO SCH ×2 (09:30→20:15)
[2019-07-25] MEDS: SULFAMETHOX/TRIMETHOPRIM 200-40 MG/5 ML -20 ML UDCUP NG SCH ×2 (09:30→20:15)
[2019-07-25] MEDS: AMIODARONE 200 MG TABLET PO SCH ×2 (09:30→20:15)
[2019-07-25] MEDS: LACTULOSE 20 GM/30 ML UDCUP PO PRN ×2 (12:40→23:40)
[2019-07-25] MEDS: oxyCODONE/ACETAMINOPHEN 5-325 MG TABLET PO PRN (12:40)
[2019-07-25 14:52] LABS: INR 1.1; Partial Thromboplastin Time 29.2 SECS (20.8-36.0)
[2019-07-25] MEDS: fentaNYL INJ 2,500 MCG in SODIUM CHLORIDE 0.9% 450 ML IV PRN (19:20)
[2019-07-25] MEDS: ATORVASTATIN 20 MG TABLET PO SCH (20:15)
[2019-07-25] MEDS: dilTIAZem Drip 125 MG/125 ML PREMIX IV SCH (23:32)
[2019-07-26] MEDS: INSULIN REGULAR 100 UNIT/ML SUBCUT SCH ×7 (00:07→23:57)
[2019-07-26] MEDS: ALBUTEROL/IPRATROPIUM 3 ML NEB RESP TX SCH ×4 (01:37→18:48)
[2019-07-26] MEDS: METOCLOPRAMIDE 10 MG/2 ML VIAL IV SCH ×3 (01:45→16:24)
[2019-07-26] MEDS: CLORAZEPATE 3.75 MG TABLET PO SCH ×4 (02:43→20:15)
[2019-07-26] MEDS: CEFEPIME 1,000 MG in SODIUM CHLORIDE 0.9% 100 ML IV SCH ×4 (02:52→20:15)
[2019-07-26 03:53] LABS: ABG HCO3 26.2 MMOL/L (20-26); ABG Oxygen Saturation 98.6 % (95-100); ABG PCO2 37.8 MM HG (35-48); ABG PH 7.446 (7.35-7.45); ABG TCO2 23.9 MMOL/L (23-27); Allen Test Positive; Pt O2 Delivery Device Ventilator
[2019-07-26 04:56] LABS: Hematocrit 25.5 VOL% (42.0-52.0); Hemoglobin 8.1 GM/DL (14.0-18.0); Immature Granulocytes % 0.9 %; Immature Granulocytes Absolute 0.14 #; Lymphocytes # 0.2 10*3/uL (1.4-4.0); Lymphocytes % 1.4 % (21.2-54.2); Mean Corpuscular HGB Conc 31.8 GM/DL (32-36); Mean Corpuscular Volume 91.4 FL (87-102); Mean Platelet Volume 12.6 FL (9.6-12.0); Monocytes % 2.6 % (1.7-12.7); Neutrophils % 95.1 % (38.7-73.9); Red Blood Count 2.79 MC/CUMM (3.8-5.5); Red Cell Distribution Width 16.6 % (9.3-17.3); White Blood Count 15.5 T/CUMM (4-12)
[2019-07-26 05:00] LABS: Platelet Count 80 T/CUMM (130-400)
[2019-07-26 05:09] LABS: Calcium 7.8 MG/DL (8.5-10.1); Osmolality,Calculated 274.2 MOS/KG (273-304)
[2019-07-26 05:41] LABS: Platelet Estimate Decreased; Polychromasia Few; Segmented Neutrophils 100 % (50-85); Total Cells Counted 100
[2019-07-26] MEDS: MORPHINE 4 MG/1 ML VIAL IV PRN ×2 (06:42→23:25)
[2019-07-26] MEDS: methylPREDNISolone SOD SUC 40 MG/1 ML VIAL IV SCH ×2 (09:00→20:16)
[2019-07-26] MEDS: ASPIRIN CHEW 81 MG TABLET PO SCH (09:11)
[2019-07-26] MEDS: AMIODARONE 200 MG TABLET PO SCH ×2 (09:12→20:15)
[2019-07-26] MEDS: FUROSEMIDE 20 MG/2 ML VIAL IV SCH (09:12)
[2019-07-26] MEDS: DOCUSATE SODIUM 100 MG/10 ML UDCUP PO SCH ×2 (09:12→20:15)
[2019-07-26] MEDS: METOPROLOL TARTRATE 25 MG TABLET PO SCH ×2 (09:12→20:15)
[2019-07-26] MEDS: CHLORHEXIDINE 0.12% ORAL RINSE 60 ML BOTTLE SWISH/SPIT SCH ×2 (09:12→20:15)
[2019-07-26] MEDS: APIXABAN 5 MG TABLET PO SCH ×2 (09:12→20:15)
[2019-07-26] MEDS: SULFAMETHOX/TRIMETHOPRIM 200-40 MG/5 ML -20 ML UDCUP NG SCH ×2 (09:12→20:15)
[2019-07-26] MEDS: VITAMIN B12 5000 MCG PO SCH (09:12)
[2019-07-26] MEDS: PANTOPRAZOLE 40 MG VIAL IV SCH (09:12)
[2019-07-26] MEDS: ASCORBIC ACID 500 MG TABLET NG SCH ×2 (09:13→20:15)
[2019-07-26] MEDS: LACTULOSE 20 GM/30 ML UDCUP PO PRN ×2 (09:13→20:15)
[2019-07-26] MEDS: fentaNYL INJ 2,500 MCG in SODIUM CHLORIDE 0.9% 450 ML IV PRN (11:30)
[2019-07-26] MEDS: ATORVASTATIN 20 MG TABLET PO SCH (20:15)
[2019-07-27] MEDS: METOCLOPRAMIDE 10 MG/2 ML VIAL IV SCH ×3 (00:11→16:30)
[2019-07-27] MEDS: ALBUTEROL/IPRATROPIUM 3 ML NEB RESP TX SCH ×4 (00:34→20:28)
[2019-07-27] MEDS: CLORAZEPATE 3.75 MG TABLET PO SCH ×4 (03:13→20:49)
[2019-07-27] MEDS: CEFEPIME 1,000 MG in SODIUM CHLORIDE 0.9% 100 ML IV SCH ×3 (03:13→15:35)
[2019-07-27 03:24] LABS: Allen Test Positive; Pt O2 Delivery Device Ventilator
[2019-07-27 03:25] LABS: ABG Base Excess 2.5 MMOL/L (-2.5-2.5); ABG HCO3 26.4 MMOL/L (20-26); ABG Oxygen Saturation 96.9 % (95-100); ABG PO2 89.8 MM HG (80-95); ABG TCO2 27.6 MMOL/L (23-27)
[2019-07-27 04:56] LABS: Basophils % 0.1 % (0.0-0.8); Eosinophils % 0.1 % (0.00-10.9); Hematocrit 26.3 VOL% (42.0-52.0); Hemoglobin 8.4 GM/DL (14.0-18.0); Immature Granulocytes % 0.7 %; Immature Granulocytes Absolute 0.08 #; Lymphocytes # 0.3 10*3/uL (1.4-4.0); Lymphocytes % 2.7 % (21.2-54.2); Mean Corpuscular HGB Conc 31.9 GM/DL (32-36); Mean Platelet Volume 11.5 FL (9.6-12.0); Monocytes % 3.9 % (1.7-12.7); Neutrophils % 92.5 % (38.7-73.9); Platelet Count 78 T/CUMM (130-400); Red Blood Count 2.89 MC/CUMM (3.8-5.5); Red Cell Distribution Width 16.6 % (9.3-17.3); White Blood Count 10.9 T/CUMM (4-12)
[2019-07-27 05:12] LABS: Calcium 7.7 MG/DL (8.5-10.1); Osmolality,Calculated 270.4 MOS/KG (273-304)
[2019-07-27 05:19] LABS: Band Neutrophils 1 % (0-10); Lymphocytes 2 % (20-55); Segmented Neutrophils 96 % (50-85); Total Cells Counted 100
[2019-07-27] MEDS: INSULIN REGULAR 100 UNIT/ML SUBCUT SCH ×5 (05:19→20:49)
[2019-07-27 05:20] LABS: Anisocytosis 1+; Hypochromasia 1+; Microcytosis 1+; Ovalocytes Slight
[2019-07-27 05:21] LABS: Platelet Estimate Decreased
[2019-07-27 05:30] LABS: Prealbumin 13.4 MG/DL (20-40)
[2019-07-27] MEDS ORDERED: FUROSEMIDE 40 MG/4 ML VIAL IV ONE (06:06)
[2019-07-27] MEDS: ALBUMIN 5% 12.5 GM in PREMIX 1 EACH IV PRN ×2 (06:21→06:51)
[2019-07-27] MEDS: FUROSEMIDE 20 MG/2 ML VIAL IV SCH (08:00)
[2019-07-27] MEDS: methylPREDNISolone SOD SUC 40 MG/1 ML VIAL IV SCH ×2 (08:02→20:54)
[2019-07-27] MEDS: PANTOPRAZOLE 40 MG VIAL IV SCH (08:05)
[2019-07-27] MEDS: CHLORHEXIDINE 0.12% ORAL RINSE 60 ML BOTTLE SWISH/SPIT SCH ×2 (08:13→20:50)
[2019-07-27] MEDS: DOCUSATE SODIUM 100 MG/10 ML UDCUP PO SCH ×2 (08:22→20:48)
[2019-07-27] MEDS: fentaNYL INJ 2,500 MCG in SODIUM CHLORIDE 0.9% 450 ML IV PRN (08:23)
[2019-07-27] MEDS: AMIODARONE 200 MG TABLET PO SCH ×2 (08:23→20:49)
[2019-07-27] MEDS: ASCORBIC ACID 500 MG TABLET NG SCH ×2 (08:23→20:48)
[2019-07-27] MEDS: METOPROLOL TARTRATE 25 MG TABLET PO SCH ×2 (08:23→20:49)
[2019-07-27] MEDS: ASPIRIN CHEW 81 MG TABLET PO SCH (08:23)
[2019-07-27] MEDS: APIXABAN 5 MG TABLET PO SCH ×2 (08:23→20:49)
[2019-07-27] MEDS: SULFAMETHOX/TRIMETHOPRIM 200-40 MG/5 ML -20 ML UDCUP NG SCH ×2 (08:37→20:48)
[2019-07-27] MEDS: VITAMIN B12 5000 MCG PO SCH (08:37)
[2019-07-27] MEDS: LACTULOSE 20 GM/30 ML UDCUP PO SCH ×3 (12:17→20:48)
[2019-07-27] MEDS: ATORVASTATIN 20 MG TABLET PO SCH (20:49)
[2019-07-28] MEDS: ALBUTEROL/IPRATROPIUM 3 ML NEB RESP TX SCH ×4 (01:13→19:30)
[2019-07-28] MEDS: fentaNYL INJ 2,500 MCG in SODIUM CHLORIDE 0.9% 450 ML IV PRN (01:49)
[2019-07-28] MEDS: INSULIN REGULAR 100 UNIT/ML SUBCUT SCH ×6 (01:51→20:22)
[2019-07-28] MEDS: METOCLOPRAMIDE 10 MG/2 ML VIAL IV SCH ×3 (01:57→16:43)
[2019-07-28] MEDS: CLORAZEPATE 3.75 MG TABLET PO SCH ×4 (02:06→20:22)
[2019-07-28 04:27] LABS: Allen Test Positive; Pt O2 Delivery Device Ventilator
[2019-07-28 04:35] LABS: ABG Base Excess 3.6 MMOL/L (-2.5-2.5); ABG HCO3 27.6 MMOL/L (20-26); ABG Oxygen Saturation 99.2 % (95-100); ABG PCO2 36.7 MM HG (35-48); ABG PH 7.477 (7.35-7.45)
[2019-07-28 05:28] LABS: Basophils % 0.1 % (0.0-0.8); Hematocrit 26.9 VOL% (42.0-52.0); Hemoglobin 8.6 GM/DL (14.0-18.0); Immature Granulocytes % 0.5 %; Immature Granulocytes Absolute 0.04 #; Lymphocytes # 0.3 10*3/uL (1.4-4.0); Lymphocytes % 2.9 % (21.2-54.2); Mean Corpuscular Volume 91.5 FL (87-102); Mean Platelet Volume 12.5 FL (9.6-12.0); Monocytes % 4.1 % (1.7-12.7); Neutrophils % 92.4 % (38.7-73.9); Red Blood Count 2.94 MC/CUMM (3.8-5.5); Red Cell Distribution Width 16.7 % (9.3-17.3); White Blood Count 8.6 T/CUMM (4-12)
[2019-07-28 05:38] LABS: Platelet Count 85 T/CUMM (130-400)
[2019-07-28 05:40] LABS: Calcium 7.7 MG/DL (8.5-10.1); Osmolality,Calculated 272.4 MOS/KG (273-304)
[2019-07-28 05:53] LABS: Hypochromasia 1+; Lymphocytes 4 % (20-55); Platelet Estimate Decreased; Segmented Neutrophils 93 % (50-85); Total Cells Counted 100
[2019-07-28 05:54] LABS: Microcytosis 1+
[2019-07-28] MEDS: methylPREDNISolone SOD SUC 40 MG/1 ML VIAL IV SCH ×2 (09:00→20:22)
[2019-07-28] MEDS: METOPROLOL TARTRATE 25 MG TABLET PO SCH ×2 (09:45→20:23)
[2019-07-28] MEDS: CHLORHEXIDINE 0.12% ORAL RINSE 60 ML BOTTLE SWISH/SPIT SCH ×2 (09:45→20:25)
[2019-07-28] MEDS: FUROSEMIDE 20 MG/2 ML VIAL IV SCH (09:45)
[2019-07-28] MEDS: SULFAMETHOX/TRIMETHOPRIM 200-40 MG/5 ML -20 ML UDCUP NG SCH ×2 (09:45→20:23)
[2019-07-28] MEDS: DOCUSATE SODIUM 100 MG/10 ML UDCUP PO SCH ×2 (09:45→20:23)
[2019-07-28] MEDS: VITAMIN B12 5000 MCG PO SCH (09:45)
[2019-07-28] MEDS: ASCORBIC ACID 500 MG TABLET NG SCH ×2 (09:45→20:23)
[2019-07-28] MEDS: AMIODARONE 200 MG TABLET PO SCH ×2 (09:45→20:22)
[2019-07-28] MEDS: APIXABAN 5 MG TABLET PO SCH ×2 (09:45→20:23)
[2019-07-28] MEDS: ASPIRIN CHEW 81 MG TABLET PO SCH (09:45)
[2019-07-28] MEDS: PANTOPRAZOLE 40 MG VIAL IV SCH (09:45)
[2019-07-28] MEDS: LACTULOSE 20 GM/30 ML UDCUP PO SCH (10:12)
[2019-07-28] MEDS ORDERED: MINERAL OIL ENEMA 133 ML BOTTLE RECTAL ONE (11:58)
[2019-07-28] MEDS: DEXMEDETOMIDINE 200 MCG in SODIUM CHLORIDE 0.9% 48 ML IV PRN (15:49)
[2019-07-28] MEDS: POLYETHYLENE GLYCOL POWDER 17 GM PACK PO SCH (20:22)
[2019-07-28] MEDS: QUEtiapine 25 MG TABLET PO SCH (20:23)
[2019-07-28] MEDS: ATORVASTATIN 20 MG TABLET PO SCH (20:23)
[2019-07-28] MEDS ORDERED: FUROSEMIDE 40 MG/4 ML VIAL IV SCH (20:30)
[2019-07-29] MEDS: METOCLOPRAMIDE 10 MG/2 ML VIAL IV SCH ×3 (00:04→19:01)
[2019-07-29] MEDS: DEXMEDETOMIDINE 200 MCG in SODIUM CHLORIDE 0.9% 48 ML IV PRN (00:36)
[2019-07-29] MEDS: ALBUTEROL/IPRATROPIUM 3 ML NEB RESP TX SCH ×4 (01:58→19:26)
[2019-07-29] MEDS: CLORAZEPATE 3.75 MG TABLET PO SCH ×4 (03:07→21:36)
[2019-07-29] MEDS: INSULIN REGULAR 100 UNIT/ML SUBCUT SCH ×6 (03:58→20:28)
[2019-07-29 05:07] LABS: Basophils % 0.1 % (0.0-0.8); Hematocrit 27.5 VOL% (42.0-52.0); Hemoglobin 8.7 GM/DL (14.0-18.0); Immature Granulocytes Absolute 0.09 #; Lymphocytes # 0.5 10*3/uL (1.4-4.0); Lymphocytes % 5.3 % (21.2-54.2); Mean Corpuscular HGB Conc 31.6 GM/DL (32-36); Mean Corpuscular Volume 92.3 FL (87-102); Mean Platelet Volume 12.3 FL (9.6-12.0); Monocytes % 4.8 % (1.7-12.7); NRBC # 0.02 10*3/uL; Neutrophils % 88.8 % (38.7-73.9); Platelet Count 100 T/CUMM (130-400); Red Blood Count 2.98 MC/CUMM (3.8-5.5); Red Cell Distribution Width 16.9 % (9.3-17.3); White Blood Count 9.3 T/CUMM (4-12)
[2019-07-29 05:09] LABS: ABG Base Excess 2.1 MMOL/L (-2.5-2.5); ABG HCO3 26.3 MMOL/L (20-26); ABG Oxygen Saturation 98.9 % (95-100); ABG PCO2 27.5 MM HG (35-48); ABG PH 7.549 (7.35-7.45); ABG TCO2 22.1 MMOL/L (23-27); Allen Test Positive; Pt O2 Delivery Device Ventilator
[2019-07-29 05:22] LABS: Osmolality,Calculated 276.5 MOS/KG (273-304)
[2019-07-29 07:45] LABS: Band Neutrophils 1 % (0-10); Hypochromasia 1+; Lymphocytes 4 % (20-55); Ovalocytes Slight; Platelet Estimate Decreased; Segmented Neutrophils 94 % (50-85); Total Cells Counted 100
[2019-07-29 07:46] LABS: Microcytosis 1+
[2019-07-29] MEDS: POLYETHYLENE GLYCOL POWDER 17 GM PACK PO SCH ×2 (09:47→16:23)
[2019-07-29] MEDS: AMIODARONE 200 MG TABLET PO SCH ×2 (09:48→21:36)
[2019-07-29] MEDS: ASCORBIC ACID 500 MG TABLET NG SCH ×2 (09:48→21:37)
[2019-07-29] MEDS: ASPIRIN CHEW 81 MG TABLET PO SCH (09:49)
[2019-07-29] MEDS: APIXABAN 5 MG TABLET PO SCH ×2 (09:49→21:37)
[2019-07-29] MEDS: SULFAMETHOX/TRIMETHOPRIM 200-40 MG/5 ML -20 ML UDCUP NG SCH ×2 (09:49→21:48)
[2019-07-29] MEDS: METOPROLOL TARTRATE 25 MG TABLET PO SCH ×2 (09:49→21:37)
[2019-07-29] MEDS: DOCUSATE SODIUM 100 MG/10 ML UDCUP PO SCH ×2 (09:50→21:36)
[2019-07-29] MEDS: CHLORHEXIDINE 0.12% ORAL RINSE 60 ML BOTTLE SWISH/SPIT SCH ×2 (09:52→21:37)
[2019-07-29] MEDS: PANTOPRAZOLE 40 MG VIAL IV SCH (09:56)
[2019-07-29] MEDS: methylPREDNISolone SOD SUC 40 MG/1 ML VIAL IV SCH ×2 (10:00→21:37)
[2019-07-29] MEDS: FUROSEMIDE 40 MG/4 ML VIAL IV SCH (10:02)
[2019-07-29] MEDS: VITAMIN B12 5000 MCG PO SCH (10:09)
[2019-07-29] MEDS: ALBUMIN 5% 12.5 GM in PREMIX 1 EACH IV PRN ×2 (13:00→14:00)
[2019-07-29] MEDS: ATORVASTATIN 20 MG TABLET PO SCH (21:37)
[2019-07-29] MEDS: QUEtiapine 25 MG TABLET PO SCH (21:37)
[2019-07-30] MEDS: ALBUTEROL/IPRATROPIUM 3 ML NEB RESP TX SCH ×4 (00:52→19:55)
[2019-07-30] MEDS: INSULIN REGULAR 100 UNIT/ML SUBCUT SCH ×6 (00:53→21:14)
[2019-07-30] MEDS: METOCLOPRAMIDE 10 MG/2 ML VIAL IV SCH ×3 (02:20→16:32)
[2019-07-30] MEDS: CLORAZEPATE 3.75 MG TABLET PO SCH ×4 (02:27→21:10)
[2019-07-30 05:05] LABS: Eosinophils % 0.1 % (0.00-10.9); Hematocrit 24.1 VOL% (42.0-52.0); Hemoglobin 7.8 GM/DL (14.0-18.0); Immature Granulocytes % 1.4 %; Immature Granulocytes Absolute 0.11 #; Lymphocytes # 0.4 10*3/uL (1.4-4.0); Lymphocytes % 4.5 % (21.2-54.2); Mean Corpuscular HGB Conc 32.4 GM/DL (32-36); Mean Corpuscular Volume 89.9 FL (87-102); Mean Platelet Volume 12.1 FL (9.6-12.0); Monocytes % 3.3 % (1.7-12.7); NRBC # 0.02 10*3/uL; Neutrophils % 90.7 % (38.7-73.9); Platelet Count 102 T/CUMM (130-400); Red Blood Count 2.68 MC/CUMM (3.8-5.5); Red Cell Distribution Width 17.3 % (9.3-17.3); White Blood Count 7.9 T/CUMM (4-12)
[2019-07-30 05:21] LABS: Calcium 7.7 MG/DL (8.5-10.1); Osmolality,Calculated 281.2 MOS/KG (273-304)
[2019-07-30 05:26] LABS: Prealbumin 13.2 MG/DL (20-40)
[2019-07-30 05:47] LABS: Lymphocytes 2 % (20-55); Platelet Estimate Decreased; Polychromasia Few; Segmented Neutrophils 97 % (50-85); Total Cells Counted 100
[2019-07-30] MEDS: DOCUSATE SODIUM 100 MG/10 ML UDCUP PO SCH ×2 (08:59→21:09)
[2019-07-30] MEDS: POLYETHYLENE GLYCOL POWDER 17 GM PACK PO SCH (08:59)
[2019-07-30] MEDS: AMIODARONE 200 MG TABLET PO SCH ×2 (09:01→21:19)
[2019-07-30] MEDS: ASCORBIC ACID 500 MG TABLET NG SCH ×2 (09:01→21:10)
[2019-07-30] MEDS: METOPROLOL TARTRATE 25 MG TABLET PO SCH ×2 (09:02→21:09)
[2019-07-30] MEDS: ASPIRIN CHEW 81 MG TABLET PO SCH (09:02)
[2019-07-30] MEDS: APIXABAN 5 MG TABLET PO SCH ×2 (09:02→21:10)
[2019-07-30] MEDS: SULFAMETHOX/TRIMETHOPRIM 200-40 MG/5 ML -20 ML UDCUP NG SCH ×2 (09:09→21:10)
[2019-07-30] MEDS: methylPREDNISolone SOD SUC 40 MG/1 ML VIAL IV SCH ×2 (09:10→21:10)
[2019-07-30] MEDS: PANTOPRAZOLE 40 MG VIAL IV SCH (09:13)
[2019-07-30] MEDS: FUROSEMIDE 40 MG/4 ML VIAL IV SCH (09:23)
[2019-07-30] MEDS: VITAMIN B12 5000 MCG PO SCH (09:36)
[2019-07-30] MEDS: CHLORHEXIDINE 0.12% ORAL RINSE 60 ML BOTTLE SWISH/SPIT SCH ×2 (09:37→21:13)
[2019-07-30] MEDS ORDERED: SODIUM CHLORIDE 0.9% 1,000 ML IV PRN ×2 (12:14→16:47)
[2019-07-30] MEDS: MUPIROCIN 2% OINT 22 GM TUBE TOP SCH (21:09)
[2019-07-30] MEDS: QUEtiapine 25 MG TABLET PO SCH (21:10)
[2019-07-30] MEDS: ATORVASTATIN 20 MG TABLET PO SCH (21:10)
[2019-07-31] MEDS: INSULIN REGULAR 100 UNIT/ML SUBCUT SCH ×6 (00:34→19:26)
[2019-07-31] MEDS: METOCLOPRAMIDE 10 MG/2 ML VIAL IV SCH ×3 (00:39→19:43)
[2019-07-31] MEDS: CLORAZEPATE 3.75 MG TABLET PO SCH ×4 (03:32→22:43)
[2019-07-31 06:33] LABS: Basophils % 0.2 % (0.0-0.8); Eosinophils % 0.1 % (0.00-10.9); Hematocrit 35.2 VOL% (42.0-52.0); Hemoglobin 11.2 GM/DL (14.0-18.0); Immature Granulocytes % 1.4 %; Immature Granulocytes Absolute 0.13 #; Lymphocytes # 0.5 10*3/uL (1.4-4.0); Lymphocytes % 5.9 % (21.2-54.2); Mean Corpuscular HGB Conc 31.8 GM/DL (32-36); Mean Corpuscular Volume 90.7 FL (87-102); Mean Platelet Volume 12.2 FL (9.6-12.0); Monocytes % 5.1 % (1.7-12.7); NRBC # 0.08 10*3/uL; Neutrophils % 87.3 % (38.7-73.9); Platelet Count 85 T/CUMM (130-400); Red Blood Count 3.88 MC/CUMM (3.8-5.5); Red Cell Distribution Width 16.6 % (9.3-17.3); White Blood Count 9.1 T/CUMM (4-12)
[2019-07-31 06:49] LABS: Calcium 7.9 MG/DL (8.5-10.1); Osmolality,Calculated 277.2 MOS/KG (273-304)
[2019-07-31 07:00] LABS: Band Neutrophils 2 % (0-10); Lymphocytes 5 % (20-55); Platelet Estimate Decreased; Segmented Neutrophils 89 % (50-85); Total Cells Counted 100
[2019-07-31 07:01] LABS: Hypochromasia 1+
[2019-07-31] MEDS: ALBUTEROL/IPRATROPIUM 3 ML NEB RESP TX SCH ×4 (07:12→20:10)
[2019-07-31] MEDS: POLYETHYLENE GLYCOL POWDER 17 GM PACK PO SCH (09:06)
[2019-07-31] MEDS: DOCUSATE SODIUM 100 MG/10 ML UDCUP PO SCH ×2 (09:06→22:44)
[2019-07-31] MEDS: ASCORBIC ACID 500 MG TABLET NG SCH ×2 (09:06→22:43)
[2019-07-31] MEDS: AMIODARONE 200 MG TABLET PO SCH ×2 (09:07→22:42)
[2019-07-31] MEDS: METOPROLOL TARTRATE 25 MG TABLET PO SCH ×2 (09:07→22:43)
[2019-07-31] MEDS: ASPIRIN CHEW 81 MG TABLET PO SCH (09:07)
[2019-07-31] MEDS: MUPIROCIN 2% OINT 22 GM TUBE TOP SCH ×2 (09:07→22:44)
[2019-07-31] MEDS: methylPREDNISolone SOD SUC 40 MG/1 ML VIAL IV SCH ×2 (09:08→10:17)
[2019-07-31] MEDS: FUROSEMIDE 40 MG/4 ML VIAL IV SCH (09:08)
[2019-07-31] MEDS: APIXABAN 5 MG TABLET PO SCH ×2 (09:08→22:43)
[2019-07-31] MEDS: PANTOPRAZOLE 40 MG VIAL IV SCH (09:09)
[2019-07-31] MEDS: CHLORHEXIDINE 0.12% ORAL RINSE 60 ML BOTTLE SWISH/SPIT SCH ×2 (09:10→22:42)
[2019-07-31] MEDS: SULFAMETHOX/TRIMETHOPRIM 200-40 MG/5 ML -20 ML UDCUP NG SCH ×2 (09:30→22:42)
[2019-07-31] MEDS: VITAMIN B12 5000 MCG PO SCH (09:34)
[2019-07-31] MEDS: ATORVASTATIN 20 MG TABLET PO SCH (22:43)
[2019-07-31] MEDS: QUEtiapine 25 MG TABLET PO SCH (22:43)
[2019-08-01] MEDS: METOCLOPRAMIDE 10 MG/2 ML VIAL IV SCH ×3 (01:34→16:50)
[2019-08-01] MEDS: ALBUTEROL/IPRATROPIUM 3 ML NEB RESP TX SCH ×4 (02:16→18:56)
[2019-08-01] MEDS: CLORAZEPATE 3.75 MG TABLET PO SCH ×3 (03:47→14:40)
[2019-08-01] MEDS: INSULIN REGULAR 100 UNIT/ML SUBCUT SCH ×7 (05:06→23:14)
[2019-08-01 05:09] LABS: ABG Base Excess 2.8 MMOL/L (-2.5-2.5); ABG HCO3 26.9 MMOL/L (20-26); ABG Oxygen Saturation 98.9 % (95-100); ABG PH 7.547 (7.35-7.45); ABG TCO2 21.3 MMOL/L (23-27); Allen Test Positive; Pt O2 Delivery Device Ventilator
[2019-08-01] MEDS: ASCORBIC ACID 500 MG TABLET NG SCH ×2 (09:19→20:24)
[2019-08-01] MEDS: APIXABAN 5 MG TABLET PO SCH ×2 (09:20→20:24)
[2019-08-01] MEDS: SULFAMETHOX/TRIMETHOPRIM 200-40 MG/5 ML -20 ML UDCUP NG SCH (09:20)
[2019-08-01] MEDS: AMIODARONE 200 MG TABLET PO SCH ×2 (09:20→20:24)
[2019-08-01] MEDS: METOPROLOL TARTRATE 25 MG TABLET PO SCH ×2 (09:20→20:24)
[2019-08-01] MEDS: ASPIRIN CHEW 81 MG TABLET PO SCH (09:23)
[2019-08-01] MEDS: DOCUSATE SODIUM 100 MG/10 ML UDCUP PO SCH ×2 (09:23→20:23)
[2019-08-01] MEDS: VITAMIN B12 5000 MCG PO SCH (09:24)
[2019-08-01] MEDS: POLYETHYLENE GLYCOL POWDER 17 GM PACK PO SCH (09:24)
[2019-08-01] MEDS: methylPREDNISolone SOD SUC 40 MG/1 ML VIAL IV SCH (09:31)
[2019-08-01] MEDS: PANTOPRAZOLE 40 MG VIAL IV SCH (09:35)
[2019-08-01] MEDS: CHLORHEXIDINE 0.12% ORAL RINSE 60 ML BOTTLE SWISH/SPIT SCH ×2 (09:42→20:24)
[2019-08-01] MEDS: FUROSEMIDE 40 MG/4 ML VIAL IV SCH (09:42)
[2019-08-01] MEDS: MUPIROCIN 2% OINT 22 GM TUBE TOP SCH ×2 (09:42→20:25)
[2019-08-01] MEDS: MORPHINE 4 MG/1 ML VIAL IV PRN (11:20)
[2019-08-01] MEDS: ACETAMINOPHEN 325 MG/10.15 ML UDCUP PEG PRN (11:20)
[2019-08-01] MEDS: LEVOFLOXACIN INJ 750 MG in PREMIX 1 EACH IV SCH (11:30)
[2019-08-01] MEDS: ATORVASTATIN 20 MG TABLET PO SCH (20:24)
[2019-08-01] MEDS: QUEtiapine 25 MG TABLET PO SCH (20:24)
[2019-08-02] MEDS: METOCLOPRAMIDE 10 MG/2 ML VIAL IV SCH ×3 (00:21→17:10)
[2019-08-02] MEDS: ALBUTEROL/IPRATROPIUM 3 ML NEB RESP TX SCH ×4 (01:25→19:15)
[2019-08-02] MEDS: INSULIN REGULAR 100 UNIT/ML SUBCUT SCH ×6 (04:11→23:19)
[2019-08-02 04:13] LABS: ABG Base Excess 1.7 MMOL/L (-2.5-2.5); ABG HCO3 25.9 MMOL/L (20-26); ABG Oxygen Saturation 99.1 % (95-100); ABG PCO2 29.2 MM HG (35-48); ABG PH 7.517 (7.35-7.45); ABG TCO2 20.8 MMOL/L (23-27)
[2019-08-02] MEDS: AMIODARONE 200 MG TABLET PO SCH ×2 (08:16→20:30)
[2019-08-02] MEDS: ASCORBIC ACID 500 MG TABLET NG SCH ×2 (08:16→20:30)
[2019-08-02] MEDS: PANTOPRAZOLE 40 MG VIAL IV SCH (08:16)
[2019-08-02] MEDS: VITAMIN B12 5000 MCG PO SCH (08:17)
[2019-08-02] MEDS: DOCUSATE SODIUM 100 MG/10 ML UDCUP PO SCH ×2 (08:17→20:30)
[2019-08-02] MEDS: CHLORHEXIDINE 0.12% ORAL RINSE 60 ML BOTTLE SWISH/SPIT SCH ×2 (08:17→20:31)
[2019-08-02] MEDS: FUROSEMIDE 40 MG/4 ML VIAL IV SCH (08:17)
[2019-08-02] MEDS: methylPREDNISolone SOD SUC 40 MG/1 ML VIAL IV SCH (08:17)
[2019-08-02] MEDS: POLYETHYLENE GLYCOL POWDER 17 GM PACK PO SCH (08:17)
[2019-08-02] MEDS: APIXABAN 5 MG TABLET PO SCH ×2 (08:17→20:30)
[2019-08-02] MEDS: ASPIRIN CHEW 81 MG TABLET PO SCH (08:17)
[2019-08-02] MEDS: METOPROLOL TARTRATE 25 MG TABLET PO SCH ×2 (08:17→20:31)
[2019-08-02] MEDS: MUPIROCIN 2% OINT 22 GM TUBE TOP SCH ×2 (08:18→20:30)
[2019-08-02] MEDS: LEVOFLOXACIN INJ 750 MG in PREMIX 1 EACH IV SCH (11:51)
[2019-08-02] MEDS: ATORVASTATIN 20 MG TABLET PO SCH (20:30)
[2019-08-02] MEDS: QUEtiapine 25 MG TABLET PO SCH (20:31)
[2019-08-02] MEDS: MORPHINE 4 MG/1 ML VIAL IV PRN (22:20)
[2019-08-03] MEDS: METOCLOPRAMIDE 10 MG/2 ML VIAL IV SCH ×3 (00:10→17:45)
[2019-08-03] MEDS: ALBUTEROL/IPRATROPIUM 3 ML NEB RESP TX SCH ×4 (01:15→19:46)
[2019-08-03 04:24] LABS: ABG Base Excess 0.7 MMOL/L (-2.5-2.5); ABG HCO3 22.3 MMOL/L (20-26); ABG Oxygen Saturation 98.2 % (95-100); ABG PH 7.535 (7.35-7.45); ABG PO2 117.7 MM HG (80-95); ABG TCO2 23.1 MMOL/L (23-27); Allen Test Positive; Pt O2 Delivery Device Ventilator
[2019-08-03] MEDS: INSULIN REGULAR 100 UNIT/ML SUBCUT SCH ×6 (04:26→23:48)
[2019-08-03 04:44] LABS: Prealbumin 14.3 MG/DL (20-40)
[2019-08-03] MEDS: methylPREDNISolone SOD SUC 40 MG/1 ML VIAL IV SCH (07:50)
[2019-08-03] MEDS: PANTOPRAZOLE 40 MG VIAL IV SCH (07:55)
[2019-08-03] MEDS: MUPIROCIN 2% OINT 22 GM TUBE TOP SCH ×2 (08:45→21:00)
[2019-08-03] MEDS: POLYETHYLENE GLYCOL POWDER 17 GM PACK PO SCH (09:00)
[2019-08-03] MEDS: ASCORBIC ACID 500 MG TABLET NG SCH ×2 (09:00→20:55)
[2019-08-03] MEDS: METOPROLOL TARTRATE 25 MG TABLET PO SCH ×2 (09:00→21:00)
[2019-08-03] MEDS: DOCUSATE SODIUM 100 MG/10 ML UDCUP PO SCH ×2 (09:00→20:55)
[2019-08-03] MEDS: VITAMIN B12 5000 MCG PO SCH (09:00)
[2019-08-03] MEDS: APIXABAN 5 MG TABLET PO SCH ×2 (09:00→20:55)
[2019-08-03] MEDS: ASPIRIN CHEW 81 MG TABLET PO SCH (09:00)
[2019-08-03] MEDS: oxyCODONE/ACETAMINOPHEN 5-325 MG TABLET PO PRN (09:00)
[2019-08-03] MEDS: AMIODARONE 200 MG TABLET PO SCH ×2 (09:00→20:55)
[2019-08-03] MEDS: CHLORHEXIDINE 0.12% ORAL RINSE 60 ML BOTTLE SWISH/SPIT SCH ×2 (09:05→21:00)
[2019-08-03] MEDS: LEVOFLOXACIN INJ 750 MG in PREMIX 1 EACH IV SCH (11:10)
[2019-08-03] MEDS: PHENYLEPHRINE DRIP 40 MG/250 ML PREMIX IV PRN (14:05)
[2019-08-03] MEDS: ATORVASTATIN 20 MG TABLET PO SCH (20:55)
[2019-08-04] MEDS: METOCLOPRAMIDE 10 MG/2 ML VIAL IV SCH ×3 (00:02→16:25)
[2019-08-04] MEDS: ALBUTEROL/IPRATROPIUM 3 ML NEB RESP TX SCH ×4 (00:54→19:28)
[2019-08-04 02:58] LABS: ABG Base Excess 1.8 MMOL/L (-2.5-2.5); ABG Oxygen Saturation 99.2 % (95-100); ABG PCO2 25.9 MM HG (35-48); ABG PH 7.558 (7.35-7.45); ABG TCO2 20.6 MMOL/L (23-27); Allen Test Positive; Pt O2 Delivery Device Ventilator
[2019-08-04] MEDS: INSULIN REGULAR 100 UNIT/ML SUBCUT SCH ×5 (05:34→20:37)
[2019-08-04] MEDS: CHLORHEXIDINE 0.12% ORAL RINSE 60 ML BOTTLE SWISH/SPIT SCH ×2 (08:10→20:38)
[2019-08-04] MEDS: methylPREDNISolone SOD SUC 40 MG/1 ML VIAL IV SCH (08:15)
[2019-08-04] MEDS: PANTOPRAZOLE 40 MG VIAL IV SCH (08:18)
[2019-08-04] MEDS: APIXABAN 5 MG TABLET PO SCH ×2 (08:20→20:38)
[2019-08-04] MEDS: METOPROLOL TARTRATE 25 MG TABLET PO SCH ×2 (08:20→20:38)
[2019-08-04] MEDS: POLYETHYLENE GLYCOL POWDER 17 GM PACK PO SCH (08:20)
[2019-08-04] MEDS: ASCORBIC ACID 500 MG TABLET NG SCH ×2 (08:20→20:38)
[2019-08-04] MEDS: ASPIRIN CHEW 81 MG TABLET PO SCH (08:20)
[2019-08-04] MEDS: DOCUSATE SODIUM 100 MG/10 ML UDCUP PO SCH ×2 (08:20→20:38)
[2019-08-04] MEDS: VITAMIN B12 5000 MCG PO SCH (08:20)
[2019-08-04] MEDS: AMIODARONE 200 MG TABLET PO SCH ×2 (08:20→20:37)
[2019-08-04] MEDS: LEVOFLOXACIN INJ 750 MG in PREMIX 1 EACH IV SCH (11:05)
[2019-08-04] MEDS: MUPIROCIN 2% OINT 22 GM TUBE TOP SCH ×2 (11:55→20:39)
[2019-08-04] MEDS: ATORVASTATIN 20 MG TABLET PO SCH (20:38)
[2019-08-05] MEDS: INSULIN REGULAR 100 UNIT/ML SUBCUT SCH ×6 (00:08→20:04)
[2019-08-05] MEDS: METOCLOPRAMIDE 10 MG/2 ML VIAL IV SCH ×3 (00:08→16:50)
[2019-08-05] MEDS: ALBUTEROL/IPRATROPIUM 3 ML NEB RESP TX SCH ×4 (01:22→19:52)
[2019-08-05 03:47] LABS: ABG HCO3 27.1 MMOL/L (20-26); ABG Oxygen Saturation 99.3 % (95-100); ABG PCO2 27.3 MM HG (35-48); ABG TCO2 21.9 MMOL/L (23-27); Allen Test Positive; Pt O2 Delivery Device Ventilator
[2019-08-05] MEDS: ASCORBIC ACID 500 MG TABLET NG SCH ×2 (08:10→20:04)
[2019-08-05] MEDS: DOCUSATE SODIUM 100 MG/10 ML UDCUP PO SCH ×2 (08:10→20:04)
[2019-08-05] MEDS: AMIODARONE 200 MG TABLET PO SCH ×2 (08:10→20:03)
[2019-08-05] MEDS: METOPROLOL TARTRATE 25 MG TABLET PO SCH ×2 (08:10→20:03)
[2019-08-05] MEDS: ASPIRIN CHEW 81 MG TABLET PO SCH (08:11)
[2019-08-05] MEDS: VITAMIN B12 5000 MCG PO SCH (08:11)
[2019-08-05] MEDS: APIXABAN 5 MG TABLET PO SCH ×2 (08:11→20:04)
[2019-08-05] MEDS: CHLORHEXIDINE 0.12% ORAL RINSE 60 ML BOTTLE SWISH/SPIT SCH ×2 (08:12→20:04)
[2019-08-05] MEDS: POLYETHYLENE GLYCOL POWDER 17 GM PACK PO SCH (08:12)
[2019-08-05] MEDS: methylPREDNISolone SOD SUC 40 MG/1 ML VIAL IV SCH (08:17)
[2019-08-05] MEDS: PANTOPRAZOLE 40 MG VIAL IV SCH (08:50)
[2019-08-05] MEDS: MUPIROCIN 2% OINT 22 GM TUBE TOP SCH ×2 (11:21→20:04)
[2019-08-05] MEDS: LEVOFLOXACIN INJ 750 MG in PREMIX 1 EACH IV SCH (12:45)
[2019-08-05] MEDS: ATORVASTATIN 20 MG TABLET PO SCH (20:03)
[2019-08-06] MEDS: METOCLOPRAMIDE 10 MG/2 ML VIAL IV SCH (00:57)
[2019-08-06] MEDS: INSULIN REGULAR 100 UNIT/ML SUBCUT SCH ×6 (00:59→20:07)
[2019-08-06] MEDS: ALBUTEROL/IPRATROPIUM 3 ML NEB RESP TX SCH ×4 (01:06→19:20)
[2019-08-06 04:45] LABS: ABG Base Excess 3.3 MMOL/L (-2.5-2.5); ABG HCO3 27.4 MMOL/L (20-26); ABG Oxygen Saturation 99.2 % (95-100); ABG PCO2 29.8 MM HG (35-48); ABG PH 7.536 (7.35-7.45); ABG TCO2 22.2 MMOL/L (23-27); Allen Test Positive; Pt O2 Delivery Device Ventilator
[2019-08-06 06:38] LABS: Prealbumin 11.7 MG/DL (20-40)
[2019-08-06 08:29] LABS: Calcium 7.7 MG/DL (8.5-10.1); Osmolality,Calculated 292.8 MOS/KG (273-304)
[2019-08-06] MEDS: AMIODARONE 200 MG TABLET PO SCH ×2 (08:40→20:07)
[2019-08-06] MEDS: VITAMIN B12 5000 MCG PO SCH (08:40)
[2019-08-06] MEDS: ASPIRIN CHEW 81 MG TABLET PO SCH (08:40)
[2019-08-06] MEDS: METOPROLOL TARTRATE 25 MG TABLET PO SCH ×2 (08:40→20:06)
[2019-08-06] MEDS: ASCORBIC ACID 500 MG TABLET NG SCH ×2 (08:40→20:06)
[2019-08-06] MEDS: DOCUSATE SODIUM 100 MG/10 ML UDCUP PO SCH ×2 (08:40→20:07)
[2019-08-06] MEDS: POLYETHYLENE GLYCOL POWDER 17 GM PACK PO SCH (08:41)
[2019-08-06] MEDS: APIXABAN 5 MG TABLET PO SCH ×2 (08:41→20:07)
[2019-08-06] MEDS: PANTOPRAZOLE 40 MG VIAL IV SCH (08:41)
[2019-08-06] MEDS: methylPREDNISolone SOD SUC 40 MG/1 ML VIAL IV SCH (08:46)
[2019-08-06] MEDS: CHLORHEXIDINE 0.12% ORAL RINSE 60 ML BOTTLE SWISH/SPIT SCH ×2 (08:48→20:07)
[2019-08-06] MEDS: MUPIROCIN 2% OINT 22 GM TUBE TOP SCH ×2 (08:49→20:07)
[2019-08-06] MEDS: LEVOFLOXACIN INJ 750 MG in PREMIX 1 EACH IV SCH (11:32)
[2019-08-06] MEDS: ATORVASTATIN 20 MG TABLET PO SCH (20:06)
[2019-08-07] MEDS: ALBUTEROL/IPRATROPIUM 3 ML NEB RESP TX SCH ×4 (00:43→18:53)
[2019-08-07] MEDS: INSULIN REGULAR 100 UNIT/ML SUBCUT SCH ×6 (01:31→19:59)
[2019-08-07 03:49] LABS: Basophils # 0.1 10*3/uL (0.0-0.2); Basophils % 0.2 % (0.0-0.8); Hematocrit 26.2 VOL% (42.0-52.0); Hemoglobin 8.4 GM/DL (14.0-18.0); Immature Granulocytes % 5.4 %; Immature Granulocytes Absolute 1.18 #; Lymphocytes # 1.4 10*3/uL (1.4-4.0); Lymphocytes % 6.2 % (21.2-54.2); Mean Corpuscular HGB Conc 32.1 GM/DL (32-36); Mean Corpuscular Volume 90.7 FL (87-102); Mean Platelet Volume 11.8 FL (9.6-12.0); Monocytes % 5.2 % (1.7-12.7); NRBC # 0.25 10*3/uL; Platelet Count 168 T/CUMM (130-400); Red Blood Count 2.89 MC/CUMM (3.8-5.5); White Blood Count 21.9 T/CUMM (4-12)
[2019-08-07 04:11] LABS: Albumin 1.5 G/DL (3.4-5.0); Bilirubin,Total 1.8 MG/DL (0.2-1.0); Calcium 7.6 MG/DL (8.5-10.1); Osmolality,Calculated 302.1 MOS/KG (273-304)
[2019-08-07 04:43] LABS: Band Neutrophils 2 % (0-10); Hypochromasia 2+; Lymphocytes 5 % (20-55); Nucleated Red Blood Cells 1 (0-5); Platelet Estimate Normal; Segmented Neutrophils 89 % (50-85); Total Cells Counted 100
[2019-08-07 04:44] LABS: Polychromasia 1+; Target Cells Few
[2019-08-07 04:45] LABS: Acanthocytes Few
[2019-08-07 05:14] LABS: Allen Test Positive; Pt O2 Delivery Device Ventilator
[2019-08-07 05:16] LABS: ABG Base Excess 2.7 MMOL/L (-2.5-2.5); ABG HCO3 26.8 MMOL/L (20-26); ABG Oxygen Saturation 99.3 % (95-100); ABG PCO2 28.5 MM HG (35-48); ABG PH 7.544 (7.35-7.45); ABG TCO2 22.2 MMOL/L (23-27)
[2019-08-07] MEDS: POLYETHYLENE GLYCOL POWDER 17 GM PACK PO SCH (09:00)
[2019-08-07] MEDS: DOCUSATE SODIUM 100 MG/10 ML UDCUP PO SCH ×2 (09:05→21:47)
[2019-08-07] MEDS: ASPIRIN CHEW 81 MG TABLET PO SCH (09:05)
[2019-08-07] MEDS: APIXABAN 5 MG TABLET PO SCH ×2 (09:05→21:47)
[2019-08-07] MEDS: VITAMIN B12 5000 MCG PO SCH (09:05)
[2019-08-07] MEDS: AMIODARONE 200 MG TABLET PO SCH ×2 (09:05→21:47)
[2019-08-07] MEDS: PANTOPRAZOLE 40 MG VIAL IV SCH (09:05)
[2019-08-07] MEDS: ASCORBIC ACID 500 MG TABLET NG SCH ×2 (09:05→21:48)
[2019-08-07] MEDS: METOPROLOL TARTRATE 25 MG TABLET PO SCH ×2 (09:05→21:48)
[2019-08-07] MEDS: methylPREDNISolone SOD SUC 40 MG/1 ML VIAL IV SCH (09:07)
[2019-08-07] MEDS: CHLORHEXIDINE 0.12% ORAL RINSE 60 ML BOTTLE SWISH/SPIT SCH ×2 (09:10→21:48)
[2019-08-07] MEDS: MUPIROCIN 2% OINT 22 GM TUBE TOP SCH ×2 (09:15→21:47)
[2019-08-07] MEDS: LEVOFLOXACIN INJ 750 MG in PREMIX 1 EACH IV SCH (10:45)
[2019-08-07] MEDS: ATORVASTATIN 20 MG TABLET PO SCH (21:48)
[2019-08-08] MEDS: INSULIN REGULAR 100 UNIT/ML SUBCUT SCH ×6 (00:12→20:10)
[2019-08-08] MEDS: ALBUTEROL/IPRATROPIUM 3 ML NEB RESP TX SCH ×4 (00:31→19:36)
[2019-08-08 03:19] LABS: ABG HCO3 23.2 MMOL/L (20-26); ABG Oxygen Saturation 98.4 % (95-100); ABG PCO2 24.5 MM HG (35-48); ABG PO2 121.3 MM HG (80-95); Allen Test Positive; Pt O2 Delivery Device Ventilator
[2019-08-08 03:44] LABS: ABG PH 7.595 (7.35-7.45)
[2019-08-08 05:22] LABS: Basophils % 0.2 % (0.0-0.8); Hematocrit 24.8 VOL% (42.0-52.0); Hemoglobin 7.7 GM/DL (14.0-18.0); Immature Granulocytes % 6.1 %; Lymphocytes # 1.4 10*3/uL (1.4-4.0); Lymphocytes % 5.9 % (21.2-54.2); Mean Corpuscular Volume 92.9 FL (87-102); Monocytes % 4.5 % (1.7-12.7); NRBC # 0.44 10*3/uL; Neutrophils % 83.3 % (38.7-73.9); Platelet Count 159 T/CUMM (130-400); Red Blood Count 2.67 MC/CUMM (3.8-5.5); Red Cell Distribution Width 17.2 % (9.3-17.3)
[2019-08-08 05:43] LABS: Band Neutrophils 1 % (0-10); Lymphocytes 7 % (20-55); Nucleated Red Blood Cells 3 (0-5); Segmented Neutrophils 89 % (50-85); Total Cells Counted 100
[2019-08-08 05:44] LABS: Hypochromasia 2+; Ovalocytes 1+; Platelet Estimate Normal; Polychromasia Few
[2019-08-08 05:45] LABS: Calcium 7.7 MG/DL (8.5-10.1); Osmolality,Calculated 300.4 MOS/KG (273-304)
[2019-08-08] MEDS ORDERED: SODIUM CHLORIDE 0.9% 1,000 ML IV PRN (05:55)
[2019-08-08] MEDS: AMIODARONE 200 MG TABLET PO SCH ×2 (08:30→21:24)
[2019-08-08] MEDS: METOPROLOL TARTRATE 25 MG TABLET PO SCH ×2 (08:30→21:25)
[2019-08-08] MEDS: PANTOPRAZOLE 40 MG VIAL IV SCH (08:30)
[2019-08-08] MEDS: ASPIRIN CHEW 81 MG TABLET PO SCH (08:30)
[2019-08-08] MEDS: ASCORBIC ACID 500 MG TABLET NG SCH ×2 (08:30→21:25)
[2019-08-08] MEDS: APIXABAN 5 MG TABLET PO SCH ×2 (08:30→21:25)
[2019-08-08] MEDS: DOCUSATE SODIUM 100 MG/10 ML UDCUP PO SCH ×2 (08:30→21:24)
[2019-08-08] MEDS: VITAMIN B12 5000 MCG PO SCH (08:30)
[2019-08-08] MEDS: predniSONE 10 MG TABLET PO SCH (08:30)
[2019-08-08] MEDS: CHLORHEXIDINE 0.12% ORAL RINSE 60 ML BOTTLE SWISH/SPIT SCH ×2 (08:30→21:25)
[2019-08-08] MEDS: POLYETHYLENE GLYCOL POWDER 17 GM PACK PO SCH (09:00)
[2019-08-08] MEDS: MUPIROCIN 2% OINT 22 GM TUBE TOP SCH ×2 (09:30→21:24)
[2019-08-08 18:24] LABS: Amorphous Crystals,Urine Occasional /HPF (Few); Apearance,Urine Slightly Hazy (Clear); Bacteria,Urine Occasional /HPF (Few); Bilirubin,Urine Negative (Negative); Blood, Urine Small mg/dL (Negative); Glucose,Urine (UA) Negative (Negative); Hyaline Casts,Urine 1 /LPF (0-3); Ketones,Urine Negative (Negative); Mucus,Urine Occasional /LPF (Occasional); Nitrite,Urine Negative (Negative); Protein,Urine 30 MG/DL; RBC,Urine 9 /HPF (0-4); Squamous Epithelial Cell,Urine Occasional /HPF (0-10); Urine Color Yellow (Yellow); Urine Specific Gravity 1.026 (1.001-1.035); Urine Urobilinogen < 2.0 EU/DL (0.2-1.0); WBC,Urine 3 /HPF (0-6)
[2019-08-08] MEDS: MORPHINE 4 MG/1 ML VIAL IV PRN (18:30)
[2019-08-08] MEDS: ATORVASTATIN 20 MG TABLET PO SCH (21:25)
[2019-08-09] MEDS: ALBUTEROL/IPRATROPIUM 3 ML NEB RESP TX SCH ×4 (01:20→19:15)
[2019-08-09] MEDS: INSULIN REGULAR 100 UNIT/ML SUBCUT SCH ×6 (01:32→20:29)
[2019-08-09 02:48] LABS: ABG Base Excess 1.7 MMOL/L (-2.5-2.5); ABG HCO3 23.1 MMOL/L (20-26); ABG Oxygen Saturation 97.8 % (95-100); ABG PCO2 26.2 MM HG (35-48); ABG PH 7.563 (7.35-7.45); ABG TCO2 23.9 MMOL/L (23-27); Allen Test Positive; Pt O2 Delivery Device Ventilator
[2019-08-09 05:07] LABS: Basophils # 0.1 10*3/uL (0.0-0.2); Basophils % 0.5 % (0.0-0.8); Hematocrit 31.4 VOL% (42.0-52.0); Immature Granulocytes Absolute 1.68 #; Lymphocytes # 1.4 10*3/uL (1.4-4.0); Lymphocytes % 5.9 % (21.2-54.2); Mean Corpuscular HGB Conc 32.8 GM/DL (32-36); Mean Corpuscular Volume 89.5 FL (87-102); Mean Platelet Volume 11.9 FL (9.6-12.0); Monocytes % 4.5 % (1.7-12.7); NRBC # 0.72 10*3/uL; Neutrophils % 82.1 % (38.7-73.9); Platelet Count 145 T/CUMM (130-400); Red Blood Count 3.51 MC/CUMM (3.8-5.5); Red Cell Distribution Width 16.1 % (9.3-17.3); White Blood Count 24.2 T/CUMM (4-12)
[2019-08-09 05:09] LABS: Hemoglobin 10.3 GM/DL (14.0-18.0)
[2019-08-09 05:22] LABS: Calcium 7.7 MG/DL (8.5-10.1); Osmolality,Calculated 305.1 MOS/KG (273-304)
[2019-08-09 05:40] LABS: Lymphocytes 11 % (20-55); Nucleated Red Blood Cells 1 (0-5); Segmented Neutrophils 86 % (50-85); Total Cells Counted 100
[2019-08-09 05:41] LABS: Platelet Estimate Adequate; Polychromasia Few
[2019-08-09] MEDS: METOPROLOL TARTRATE 25 MG TABLET PO SCH ×2 (08:50→23:44)
[2019-08-09] MEDS: PANTOPRAZOLE 40 MG VIAL IV SCH (08:50)
[2019-08-09] MEDS: APIXABAN 5 MG TABLET PO SCH (08:50)
[2019-08-09] MEDS: ASPIRIN CHEW 81 MG TABLET PO SCH (08:50)
[2019-08-09] MEDS: AMIODARONE 200 MG TABLET PO SCH ×2 (08:50→20:29)
[2019-08-09] MEDS: VITAMIN B12 5000 MCG PO SCH (08:50)
[2019-08-09] MEDS: predniSONE 10 MG TABLET PO SCH (08:50)
[2019-08-09] MEDS: DOCUSATE SODIUM 100 MG/10 ML UDCUP PO SCH ×2 (09:00→20:29)
[2019-08-09] MEDS: POLYETHYLENE GLYCOL POWDER 17 GM PACK PO SCH (09:00)
[2019-08-09] MEDS: ASCORBIC ACID 500 MG TABLET NG SCH ×2 (09:00→20:29)
[2019-08-09] MEDS: MUPIROCIN 2% OINT 22 GM TUBE TOP SCH (09:15)
[2019-08-09] MEDS: CHLORHEXIDINE 0.12% ORAL RINSE 60 ML BOTTLE SWISH/SPIT SCH ×2 (09:15→20:29)
[2019-08-09] MEDS: ACETAMINOPHEN 325 MG/10.15 ML UDCUP PEG PRN (14:30)
[2019-08-09] MEDS: ATORVASTATIN 20 MG TABLET PO SCH (20:29)
[2019-08-10] MEDS: ALBUTEROL/IPRATROPIUM 3 ML NEB RESP TX SCH ×4 (00:36→19:26)
[2019-08-10] MEDS: INSULIN REGULAR 100 UNIT/ML SUBCUT SCH ×6 (01:04→21:10)
[2019-08-10 03:57] LABS: ABG Base Excess 4.3 MMOL/L (-2.5-2.5); ABG HCO3 28.3 MMOL/L (20-26); ABG PCO2 28.2 MM HG (35-48); ABG PH 7.569 (7.35-7.45); ABG TCO2 22.9 MMOL/L (23-27); Allen Test Positive; Pt O2 Delivery Device Ventilator
[2019-08-10] MEDS: MUPIROCIN 2% OINT 22 GM TUBE TOP SCH ×3 (04:16→21:11)
[2019-08-10 04:44] LABS: Basophils # 0.1 10*3/uL (0.0-0.2); Basophils % 0.3 % (0.0-0.8); Hemoglobin 9.7 GM/DL (14.0-18.0); Immature Granulocytes % 7.5 %; Immature Granulocytes Absolute 1.75 #; Lymphocytes # 1.4 10*3/uL (1.4-4.0); Lymphocytes % 5.8 % (21.2-54.2); Mean Corpuscular HGB Conc 32.3 GM/DL (32-36); Mean Corpuscular Volume 91.2 FL (87-102); Mean Platelet Volume 12.1 FL (9.6-12.0); Monocytes % 3.7 % (1.7-12.7); NRBC # 0.59 10*3/uL; Neutrophils % 82.7 % (38.7-73.9); Platelet Count 137 T/CUMM (130-400); Red Blood Count 3.29 MC/CUMM (3.8-5.5); Red Cell Distribution Width 16.9 % (9.3-17.3); White Blood Count 23.4 T/CUMM (4-12)
[2019-08-10 05:00] LABS: Calcium 7.4 MG/DL (8.5-10.1); Osmolality,Calculated 312.4 MOS/KG (273-304)
[2019-08-10 05:04] LABS: Prealbumin 11.4 MG/DL (20-40)
[2019-08-10 05:06] LABS: Band Neutrophils 1 % (0-10); Lymphocytes 5 % (20-55); Nucleated Red Blood Cells 2 (0-5); Segmented Neutrophils 92 % (50-85); Total Cells Counted 100
[2019-08-10 05:07] LABS: Hypochromasia 1+; Ovalocytes Slight; Platelet Estimate Adequate
[2019-08-10] MEDS ORDERED: FUROSEMIDE 20 MG/2 ML VIAL IV ONE (08:55)
[2019-08-10] MEDS: METOPROLOL TARTRATE 25 MG TABLET PO SCH ×2 (09:24→21:11)
[2019-08-10] MEDS: ASPIRIN CHEW 81 MG TABLET PO SCH (09:24)
[2019-08-10] MEDS: AMIODARONE 200 MG TABLET PO SCH ×2 (09:24→21:11)
[2019-08-10] MEDS: POLYETHYLENE GLYCOL POWDER 17 GM PACK PO SCH (09:24)
[2019-08-10] MEDS: DOCUSATE SODIUM 100 MG/10 ML UDCUP PO SCH ×2 (09:24→21:11)
[2019-08-10] MEDS: predniSONE 10 MG TABLET PO SCH (09:25)
[2019-08-10] MEDS: CHLORHEXIDINE 0.12% ORAL RINSE 60 ML BOTTLE SWISH/SPIT SCH ×2 (09:25→21:11)
[2019-08-10] MEDS: PANTOPRAZOLE 40 MG VIAL IV SCH (09:25)
[2019-08-10] MEDS: VITAMIN B12 5000 MCG PO SCH (09:25)
[2019-08-10] MEDS: ASCORBIC ACID 500 MG TABLET NG SCH ×2 (09:25→21:11)
[2019-08-10] MEDS ORDERED: FLUCONAZOLE INJ 200 MG in PREMIX 1 EACH IV ONE (11:00)
[2019-08-10] MEDS: SULFAMETHOX/TRIMETHOPRIM 200-40 MG/5 ML -20 ML UDCUP PO SCH (17:29)
[2019-08-10] MEDS: ATORVASTATIN 20 MG TABLET PO SCH (21:11)
[2019-08-11] MEDS: INSULIN REGULAR 100 UNIT/ML SUBCUT SCH ×6 (00:13→20:25)
[2019-08-11] MEDS: ALBUTEROL/IPRATROPIUM 3 ML NEB RESP TX SCH ×4 (00:59→19:44)
[2019-08-11 03:35] LABS: ABG HCO3 27.9 MMOL/L (20-26); ABG Oxygen Saturation 94.3 % (95-100); ABG PCO2 31.1 MM HG (35-48); ABG PH 7.536 (7.35-7.45); ABG PO2 60.6 MM HG (80-95); ABG TCO2 23.8 MMOL/L (23-27)
[2019-08-11] MEDS: POLYETHYLENE GLYCOL POWDER 17 GM PACK PO SCH (09:51)
[2019-08-11] MEDS: ASCORBIC ACID 500 MG TABLET NG SCH ×2 (09:52→20:25)
[2019-08-11] MEDS: AMIODARONE 200 MG TABLET PO SCH (09:52)
[2019-08-11] MEDS: ASPIRIN CHEW 81 MG TABLET PO SCH (09:52)
[2019-08-11] MEDS: DOCUSATE SODIUM 100 MG/10 ML UDCUP PO SCH ×2 (09:52→20:26)
[2019-08-11] MEDS: FLUCONAZOLE 200 MG TABLET PO SCH (09:52)
[2019-08-11] MEDS: PANTOPRAZOLE 40 MG VIAL IV SCH (09:52)
[2019-08-11] MEDS: predniSONE 10 MG TABLET PO SCH (09:53)
[2019-08-11] MEDS: VITAMIN B12 5000 MCG PO SCH (09:53)
[2019-08-11] MEDS: METOPROLOL TARTRATE 25 MG TABLET PO SCH ×2 (09:53→20:25)
[2019-08-11] MEDS: MUPIROCIN 2% OINT 22 GM TUBE TOP SCH ×2 (09:54→20:26)
[2019-08-11] MEDS: CHLORHEXIDINE 0.12% ORAL RINSE 60 ML BOTTLE SWISH/SPIT SCH ×2 (09:55→20:26)
[2019-08-11] MEDS: SULFAMETHOX/TRIMETHOPRIM 200-40 MG/5 ML -20 ML UDCUP PO SCH (10:00)
[2019-08-11] MEDS: ATORVASTATIN 20 MG TABLET PO SCH (20:25)
[2019-08-12] MEDS: INSULIN REGULAR 100 UNIT/ML SUBCUT SCH ×7 (00:47→23:51)
[2019-08-12] MEDS: ALBUTEROL/IPRATROPIUM 3 ML NEB RESP TX SCH ×4 (02:03→19:43)
[2019-08-12 03:49] LABS: Allen Test Positive; Pt O2 Delivery Device Ventilator
[2019-08-12 03:50] LABS: ABG Base Excess 2.9 MMOL/L (-2.5-2.5); ABG HCO3 24.3 MMOL/L (20-26); ABG Oxygen Saturation 97.4 % (95-100); ABG PCO2 26.8 MM HG (35-48); ABG PH 7.575 (7.35-7.45); ABG PO2 93.5 MM HG (80-95); ABG TCO2 25.1 MMOL/L (23-27)
[2019-08-12 05:28] LABS: Calcium 7.8 MG/DL (8.5-10.1); Osmolality,Calculated 319.3 MOS/KG (273-304)
[2019-08-12] MEDS: SULFAMETHOX/TRIMETHOPRIM 200-40 MG/5 ML -20 ML UDCUP PO SCH (08:45)
[2019-08-12] MEDS: AMIODARONE 200 MG TABLET PO SCH (08:45)
[2019-08-12] MEDS: METOPROLOL TARTRATE 25 MG TABLET PO SCH ×2 (08:45→23:19)
[2019-08-12] MEDS: predniSONE 10 MG TABLET PO SCH (08:45)
[2019-08-12] MEDS: ASPIRIN CHEW 81 MG TABLET PO SCH (08:45)
[2019-08-12] MEDS: FLUCONAZOLE 200 MG TABLET PO SCH (08:45)
[2019-08-12] MEDS: ASCORBIC ACID 500 MG TABLET NG SCH ×2 (08:45→20:21)
[2019-08-12] MEDS: PANTOPRAZOLE 40 MG VIAL IV SCH (08:45)
[2019-08-12] MEDS: VITAMIN B12 5000 MCG PO SCH (08:45)
[2019-08-12] MEDS: POLYETHYLENE GLYCOL POWDER 17 GM PACK PO SCH (09:00)
[2019-08-12] MEDS: DOCUSATE SODIUM 100 MG/10 ML UDCUP PO SCH ×2 (09:00→20:20)
[2019-08-12] MEDS: CHLORHEXIDINE 0.12% ORAL RINSE 60 ML BOTTLE SWISH/SPIT SCH ×2 (09:20→20:20)
[2019-08-12] MEDS: MUPIROCIN 2% OINT 22 GM TUBE TOP SCH ×2 (10:45→20:20)
[2019-08-12] MEDS: ATORVASTATIN 20 MG TABLET PO SCH (20:21)
[2019-08-13] MEDS: ALBUTEROL/IPRATROPIUM 3 ML NEB RESP TX SCH ×4 (00:55→19:27)
[2019-08-13 04:08] LABS: ABG Base Excess 4.2 MMOL/L (-2.5-2.5); ABG HCO3 28.2 MMOL/L (20-26); ABG Oxygen Saturation 98.3 % (95-100); ABG PCO2 33.4 MM HG (35-48); ABG PH 7.512 (7.35-7.45); ABG TCO2 23.1 MMOL/L (23-27); Allen Test Positive; Pt O2 Delivery Device Ventilator
[2019-08-13] MEDS: INSULIN REGULAR 100 UNIT/ML SUBCUT SCH ×6 (04:25→23:59)
[2019-08-13 04:32] LABS: Basophils # 0.1 10*3/uL (0.0-0.2); Basophils % 0.4 % (0.0-0.8); Hematocrit 29.5 VOL% (42.0-52.0); Hemoglobin 9.2 GM/DL (14.0-18.0); Immature Granulocytes Absolute 1.62 #; Lymphocytes # 1.6 10*3/uL (1.4-4.0); Lymphocytes % 5.9 % (21.2-54.2); Mean Corpuscular HGB Conc 31.2 GM/DL (32-36); Mean Corpuscular Volume 96.4 FL (87-102); Mean Platelet Volume 12.8 FL (9.6-12.0); Monocytes % 3.5 % (1.7-12.7); NRBC # 1.67 10*3/uL; Neutrophils % 84.2 % (38.7-73.9); Platelet Count 138 T/CUMM (130-400); Red Blood Count 3.06 MC/CUMM (3.8-5.5); Red Cell Distribution Width 17.9 % (9.3-17.3)
[2019-08-13 04:42] LABS: Calcium 7.3 MG/DL (8.5-10.1); Osmolality,Calculated 324.9 MOS/KG (273-304)
[2019-08-13 04:52] LABS: Prealbumin 6.3 MG/DL (20-40)
[2019-08-13 05:08] LABS: Band Neutrophils 1 % (0-10); Lymphocytes 5 % (20-55); Metamyelocytes 1 %; Nucleated Red Blood Cells 7 (0-5); Platelet Estimate Decreased; Segmented Neutrophils 92 % (50-85); Total Cells Counted 100
[2019-08-13] MEDS: MAGNESIUM SULF RIDER 2 GM in PREMIX 1 EACH IV PRN (05:15)
[2019-08-13] MEDS: METOPROLOL TARTRATE 25 MG TABLET PO SCH (09:00)
[2019-08-13] MEDS: DOCUSATE SODIUM 100 MG/10 ML UDCUP PO SCH ×2 (09:00→21:42)
[2019-08-13] MEDS: POLYETHYLENE GLYCOL POWDER 17 GM PACK PO SCH (09:00)
[2019-08-13] MEDS: FLUCONAZOLE 200 MG TABLET PO SCH (09:30)
[2019-08-13] MEDS: ACETAMINOPHEN 325 MG/10.15 ML UDCUP PEG PRN (09:30)
[2019-08-13] MEDS: predniSONE 10 MG TABLET PO SCH (09:30)
[2019-08-13] MEDS: AMIODARONE 200 MG TABLET PO SCH (09:30)
[2019-08-13] MEDS: ASCORBIC ACID 500 MG TABLET NG SCH ×2 (09:30→21:42)
[2019-08-13] MEDS: VITAMIN B12 5000 MCG PO SCH (09:30)
[2019-08-13] MEDS: ASPIRIN CHEW 81 MG TABLET PO SCH (09:30)
[2019-08-13] MEDS: PANTOPRAZOLE 40 MG VIAL IV SCH (09:30)
[2019-08-13] MEDS: SULFAMETHOX/TRIMETHOPRIM 200-40 MG/5 ML -20 ML UDCUP PO SCH (09:30)
[2019-08-13] MEDS: CHLORHEXIDINE 0.12% ORAL RINSE 60 ML BOTTLE SWISH/SPIT SCH ×2 (09:30→20:35)
[2019-08-13] MEDS: MUPIROCIN 2% OINT 22 GM TUBE TOP SCH ×2 (11:30→20:34)
[2019-08-13] MEDS: VANCOMYCIN INJ 750 MG in SODIUM CHLORIDE 0.9% 250 ML IV SCH (16:55)
[2019-08-13] MEDS: ATORVASTATIN 20 MG TABLET PO SCH (21:42)
[2019-08-14] MEDS: ALBUTEROL/IPRATROPIUM 3 ML NEB RESP TX SCH ×4 (00:46→20:00)
[2019-08-14 03:10] LABS: ABG Base Excess 4.3 MMOL/L (-2.5-2.5); ABG HCO3 28.3 MMOL/L (20-26); ABG Oxygen Saturation 99.1 % (95-100); ABG PCO2 31.7 MM HG (35-48); ABG PH 7.536 (7.35-7.45); Allen Test Positive; Pt O2 Delivery Device Ventilator
[2019-08-14] MEDS: INSULIN REGULAR 100 UNIT/ML SUBCUT SCH ×5 (03:40→21:44)
[2019-08-14] MEDS: VANCOMYCIN INJ 750 MG in SODIUM CHLORIDE 0.9% 250 ML IV SCH ×2 (03:42→15:46)
[2019-08-14 03:50] LABS: Osmolality,Calculated 314.4 MOS/KG (273-304)
[2019-08-14 03:51] LABS: Basophils # 0.1 10*3/uL (0.0-0.2); Basophils % 0.2 % (0.0-0.8); Eosinophils % 0.1 % (0.00-10.9); Hematocrit 27.9 VOL% (42.0-52.0); Hemoglobin 8.4 GM/DL (14.0-18.0); Immature Granulocytes % 5.4 %; Immature Granulocytes Absolute 1.42 #; Lymphocytes # 1.8 10*3/uL (1.4-4.0); Lymphocytes % 6.6 % (21.2-54.2); Mean Corpuscular HGB Conc 30.1 GM/DL (32-36); Mean Corpuscular Volume 98.6 FL (87-102); Mean Platelet Volume 12.4 FL (9.6-12.0); Monocytes % 2.8 % (1.7-12.7); NRBC # 2.74 10*3/uL; Neutrophils % 84.9 % (38.7-73.9); Platelet Count 127 T/CUMM (130-400); Red Blood Count 2.83 MC/CUMM (3.8-5.5); Red Cell Distribution Width 18.1 % (9.3-17.3); White Blood Count 26.4 T/CUMM (4-12)
[2019-08-14 04:53] LABS: Anisocytosis 1+; Hypochromasia 1+; Lymphocytes 10 % (20-55); Macrocytosis 1+; Nucleated Red Blood Cells 9 (0-5); Ovalocytes 1+; Platelet Estimate Adequate; Polychromasia 1+; Segmented Neutrophils 89 % (50-85); Total Cells Counted 100
[2019-08-14] MEDS: AMIODARONE 200 MG TABLET PO SCH ×2 (09:00→21:43)
[2019-08-14] MEDS: predniSONE 5 MG TABLET PO SCH (09:00)
[2019-08-14] MEDS: PANTOPRAZOLE 40 MG VIAL IV SCH (09:00)
[2019-08-14] MEDS: ASCORBIC ACID 500 MG TABLET NG SCH ×2 (09:00→21:44)
[2019-08-14] MEDS: FLUCONAZOLE 200 MG TABLET PO SCH (09:00)
[2019-08-14] MEDS: CHLORHEXIDINE 0.12% ORAL RINSE 60 ML BOTTLE SWISH/SPIT SCH ×2 (09:00→21:44)
[2019-08-14] MEDS: VITAMIN B12 5000 MCG PO SCH (09:00)
[2019-08-14] MEDS: ASPIRIN CHEW 81 MG TABLET PO SCH (09:42)
[2019-08-14] MEDS: DOCUSATE SODIUM 100 MG/10 ML UDCUP PO SCH ×2 (09:43→21:42)
[2019-08-14] MEDS: POLYETHYLENE GLYCOL POWDER 17 GM PACK PO SCH (09:51)
[2019-08-14] MEDS: MUPIROCIN 2% OINT 22 GM TUBE TOP SCH ×2 (11:24→21:44)
[2019-08-14] MEDS: MORPHINE 4 MG/1 ML VIAL IV PRN (15:55)
[2019-08-14] MEDS ORDERED: AMIODARONE INJ 50 MG in DEXTROSE 5% 100 ML IV ONE ×2 (18:24→18:41)
[2019-08-14] MEDS: ATORVASTATIN 20 MG TABLET PO SCH (21:43)
[2019-08-15] MEDS: ALBUTEROL/IPRATROPIUM 3 ML NEB RESP TX SCH ×4 (00:20→19:51)
[2019-08-15] MEDS: INSULIN REGULAR 100 UNIT/ML SUBCUT SCH ×6 (00:53→21:19)
[2019-08-15] MEDS: VANCOMYCIN INJ 750 MG in SODIUM CHLORIDE 0.9% 250 ML IV SCH ×2 (03:50→17:25)
[2019-08-15 04:40] LABS: ABG Base Excess 3.6 MMOL/L (-2.5-2.5); ABG HCO3 27.7 MMOL/L (20-26); ABG Oxygen Saturation 98.9 % (95-100); ABG PCO2 31.3 MM HG (35-48); ABG PH 7.531 (7.35-7.45); ABG TCO2 24.5 MMOL/L (23-27); Allen Test Positive; Pt O2 Delivery Device Ventilator
[2019-08-15 06:14] LABS: Basophils # 0.1 10*3/uL (0.0-0.2); Basophils % 0.2 % (0.0-0.8); Eosinophils % 0.1 % (0.00-10.9); Hematocrit 27.7 VOL% (42.0-52.0); Hemoglobin 8.2 GM/DL (14.0-18.0); Immature Granulocytes % 5.7 %; Immature Granulocytes Absolute 1.27 #; Lymphocytes # 1.7 10*3/uL (1.4-4.0); Lymphocytes % 7.4 % (21.2-54.2); Mean Corpuscular HGB Conc 29.6 GM/DL (32-36); Mean Corpuscular Volume 100.4 FL (87-102); Mean Platelet Volume 12.9 FL (9.6-12.0); Monocytes % 3.5 % (1.7-12.7); NRBC # 2.43 10*3/uL; Neutrophils % 83.1 % (38.7-73.9); Platelet Count 108 T/CUMM (130-400); Red Blood Count 2.76 MC/CUMM (3.8-5.5); Red Cell Distribution Width 18.2 % (9.3-17.3); White Blood Count 22.2 T/CUMM (4-12)
[2019-08-15 06:42] LABS: Band Neutrophils 19 % (0-10); Calcium 7.2 MG/DL (8.5-10.1); Lymphocytes 9 % (20-55); Metamyelocytes 1 %; Nucleated Red Blood Cells 15 (0-5); Osmolality,Calculated 290.4 MOS/KG (273-304); Platelet Estimate Adequate; Segmented Neutrophils 69 % (50-85); Total Cells Counted 100
[2019-08-15 06:43] LABS: Anisocytosis 2+; Smudge Cells 1+
[2019-08-15 06:44] LABS: Macrocytosis Slight; Poikilocytosis Slight; Polychromasia Slight
[2019-08-15] MEDS: FLUCONAZOLE 200 MG TABLET PO SCH (08:30)
[2019-08-15] MEDS: AMIODARONE 200 MG TABLET PO SCH ×2 (08:30→20:02)
[2019-08-15] MEDS: DOCUSATE SODIUM 100 MG/10 ML UDCUP PO SCH ×2 (08:30→20:00)
[2019-08-15] MEDS: predniSONE 5 MG TABLET PO SCH (08:30)
[2019-08-15] MEDS: POLYETHYLENE GLYCOL POWDER 17 GM PACK PO SCH (08:30)
[2019-08-15] MEDS: ASCORBIC ACID 500 MG TABLET NG SCH ×2 (08:30→20:02)
[2019-08-15] MEDS: ASPIRIN CHEW 81 MG TABLET PO SCH (08:30)
[2019-08-15] MEDS: VITAMIN B12 5000 MCG PO SCH (08:41)
[2019-08-15] MEDS: CHLORHEXIDINE 0.12% ORAL RINSE 60 ML BOTTLE SWISH/SPIT SCH ×2 (08:41→20:00)
[2019-08-15] MEDS: MORPHINE 4 MG/1 ML VIAL IV PRN (10:11)
[2019-08-15] MEDS: PANTOPRAZOLE 40 MG VIAL IV SCH (10:35)
[2019-08-15] MEDS: MUPIROCIN 2% OINT 22 GM TUBE TOP SCH ×3 (13:47→20:01)
[2019-08-15] MEDS: DORNASE ALFA 2.5 MG/2.5 ML VIAL RESP TX SCH (19:51)
[2019-08-15] MEDS: SULFAMETHOX/TRIMETHOPRIM 200-40 MG/5 ML -20 ML UDCUP PO SCH (20:00)
[2019-08-15] MEDS: ATORVASTATIN 20 MG TABLET PO SCH (20:02)
[2019-08-16] MEDS: ALBUTEROL/IPRATROPIUM 3 ML NEB RESP TX SCH ×4 (00:04→19:40)
[2019-08-16] MEDS: INSULIN REGULAR 100 UNIT/ML SUBCUT SCH ×6 (01:55→21:02)
[2019-08-16] MEDS: VANCOMYCIN INJ 750 MG in SODIUM CHLORIDE 0.9% 250 ML IV SCH ×2 (03:35→16:50)
[2019-08-16 04:38] LABS: ABG Base Excess 2.7 MMOL/L (-2.5-2.5); ABG HCO3 26.8 MMOL/L (20-26); ABG Oxygen Saturation 98.7 % (95-100); ABG PH 7.518 (7.35-7.45); ABG TCO2 22.7 MMOL/L (23-27); Allen Test Positive; Pt O2 Delivery Device Ventilator
[2019-08-16 05:35] LABS: Basophils % 0.2 % (0.0-0.8); Eosinophils % 0.2 % (0.00-10.9); Hematocrit 27.9 VOL% (42.0-52.0); Hemoglobin 8.4 GM/DL (14.0-18.0); Immature Granulocytes % 6.9 %; Immature Granulocytes Absolute 1.29 #; Lymphocytes # 1.6 10*3/uL (1.4-4.0); Lymphocytes % 8.8 % (21.2-54.2); Mean Corpuscular HGB Conc 30.1 GM/DL (32-36); Mean Corpuscular Volume 98.9 FL (87-102); Mean Platelet Volume 12.6 FL (9.6-12.0); Monocytes % 3.9 % (1.7-12.7); NRBC # 1.98 10*3/uL; Platelet Count 110 T/CUMM (130-400); Red Blood Count 2.82 MC/CUMM (3.8-5.5); Red Cell Distribution Width 18.2 % (9.3-17.3); White Blood Count 18.6 T/CUMM (4-12)
[2019-08-16 05:53] LABS: Calcium 7.2 MG/DL (8.5-10.1); Osmolality,Calculated 286.4 MOS/KG (273-304)
[2019-08-16 06:17] LABS: Anisocytosis 1+; Hypochromasia 1+; Lymphocytes 5 % (20-55); Macrocytosis 1+; Microcytosis 1+; Myelocytes 1 %; Nucleated Red Blood Cells 12 (0-5); Polychromasia 1+; Segmented Neutrophils 88 % (50-85); Total Cells Counted 100
[2019-08-16 06:18] LABS: Platelet Estimate Decreased; Spherocytes Slight
[2019-08-16] MEDS: DORNASE ALFA 2.5 MG/2.5 ML VIAL RESP TX SCH ×2 (08:03→19:40)
[2019-08-16] MEDS: SULFAMETHOX/TRIMETHOPRIM 200-40 MG/5 ML -20 ML UDCUP PO SCH ×2 (09:00→21:03)
[2019-08-16] MEDS: DOCUSATE SODIUM 100 MG/10 ML UDCUP PO SCH ×2 (09:01→21:02)
[2019-08-16] MEDS: PANTOPRAZOLE 40 MG VIAL IV SCH (09:01)
[2019-08-16] MEDS: predniSONE 5 MG TABLET PO SCH (09:01)
[2019-08-16] MEDS: ASCORBIC ACID 500 MG TABLET NG SCH ×2 (09:02→21:04)
[2019-08-16] MEDS: VITAMIN B12 5000 MCG PO SCH (09:02)
[2019-08-16] MEDS: CHLORHEXIDINE 0.12% ORAL RINSE 60 ML BOTTLE SWISH/SPIT SCH ×2 (09:02→21:03)
[2019-08-16] MEDS: FLUCONAZOLE 200 MG TABLET PO SCH (09:02)
[2019-08-16] MEDS: AMIODARONE 200 MG TABLET PO SCH ×2 (09:02→21:04)
[2019-08-16] MEDS: ASPIRIN CHEW 81 MG TABLET PO SCH (09:02)
[2019-08-16] MEDS: POLYETHYLENE GLYCOL POWDER 17 GM PACK PO SCH (09:03)
[2019-08-16] MEDS: POTASSIUM CHLORIDE RIDER 10 MEQ in PREMIX 1 EACH IV PRN (09:15)
[2019-08-16] MEDS: MORPHINE 4 MG/1 ML VIAL IV PRN ×2 (10:00→12:31)
[2019-08-16] MEDS: MUPIROCIN 2% OINT 22 GM TUBE TOP SCH ×2 (16:07→21:05)
[2019-08-16] MEDS: ATORVASTATIN 20 MG TABLET PO SCH (21:04)
[2019-08-17] MEDS: ALBUTEROL/IPRATROPIUM 3 ML NEB RESP TX SCH ×4 (00:32→19:23)
[2019-08-17] MEDS: INSULIN REGULAR 100 UNIT/ML SUBCUT SCH ×6 (00:50→19:35)
[2019-08-17] MEDS: MORPHINE 4 MG/1 ML VIAL IV PRN ×2 (01:37→16:10)
[2019-08-17 04:05] LABS: ABG HCO3 26.2 MMOL/L (20-26); ABG Oxygen Saturation 98.9 % (95-100); ABG PCO2 33.1 MM HG (35-48); ABG PH 7.488 (7.35-7.45); ABG TCO2 23.3 MMOL/L (23-27); Allen Test Positive; Pt O2 Delivery Device Ventilator
[2019-08-17] MEDS: VANCOMYCIN INJ 750 MG in SODIUM CHLORIDE 0.9% 250 ML IV SCH ×2 (04:31→16:12)
[2019-08-17 06:40] LABS: Basophils % 0.2 % (0.0-0.8); Eosinophils # 0.1 10*3/uL (0.0-0.87); Eosinophils % 0.4 % (0.00-10.9); Hematocrit 26.6 VOL% (42.0-52.0); Hemoglobin 7.8 GM/DL (14.0-18.0); Immature Granulocytes % 5.6 %; Immature Granulocytes Absolute 0.95 #; Lymphocytes # 1.2 10*3/uL (1.4-4.0); Lymphocytes % 7.1 % (21.2-54.2); Mean Corpuscular HGB Conc 29.3 GM/DL (32-36); Mean Corpuscular Volume 99.3 FL (87-102); Mean Platelet Volume 13.4 FL (9.6-12.0); Monocytes % 3.4 % (1.7-12.7); NRBC # 1.09 10*3/uL; Neutrophils % 83.3 % (38.7-73.9); Platelet Count 93 T/CUMM (130-400); Red Blood Count 2.68 MC/CUMM (3.8-5.5); Red Cell Distribution Width 18.2 % (9.3-17.3); White Blood Count 17.1 T/CUMM (4-12)
[2019-08-17 07:08] LABS: Prealbumin 11.5 MG/DL (20-40)
[2019-08-17 07:09] LABS: Band Neutrophils 1 % (0-10); Hypochromasia 1+; Lymphocytes 7 % (20-55); Nucleated Red Blood Cells 7 (0-5); Platelet Estimate Decreased; Segmented Neutrophils 89 % (50-85); Total Cells Counted 100
[2019-08-17 07:10] LABS: Microcytosis Slight
[2019-08-17 07:15] LABS: Calcium 6.8 MG/DL (8.5-10.1); Osmolality,Calculated 280.5 MOS/KG (273-304)
[2019-08-17] MEDS: DORNASE ALFA 2.5 MG/2.5 ML VIAL RESP TX SCH ×2 (07:43→19:29)
[2019-08-17] MEDS: SULFAMETHOX/TRIMETHOPRIM 200-40 MG/5 ML -20 ML UDCUP PO SCH ×2 (09:15→21:52)
[2019-08-17] MEDS: DOCUSATE SODIUM 100 MG/10 ML UDCUP PO SCH ×2 (09:50→21:53)
[2019-08-17] MEDS: ASPIRIN CHEW 81 MG TABLET PO SCH (09:50)
[2019-08-17] MEDS: FLUCONAZOLE 200 MG TABLET PO SCH (09:50)
[2019-08-17] MEDS: predniSONE 5 MG TABLET PO SCH (09:50)
[2019-08-17] MEDS: POLYETHYLENE GLYCOL POWDER 17 GM PACK PO SCH (09:51)
[2019-08-17] MEDS: MUPIROCIN 2% OINT 22 GM TUBE TOP SCH ×2 (09:51→21:52)
[2019-08-17] MEDS: PANTOPRAZOLE 40 MG VIAL IV SCH (09:52)
[2019-08-17] MEDS: CHLORHEXIDINE 0.12% ORAL RINSE 60 ML BOTTLE SWISH/SPIT SCH ×2 (09:52→21:54)
[2019-08-17] MEDS: VITAMIN B12 5000 MCG PO SCH (09:52)
[2019-08-17] MEDS: ASCORBIC ACID 500 MG TABLET NG SCH ×2 (09:59→21:53)
[2019-08-17] MEDS: AMIODARONE 200 MG TABLET PO SCH ×2 (09:59→21:53)
[2019-08-17 11:52] LABS: Lymphocytes,Pleural Fluid 39 %; Monocytes,Pleural Fluid 2 %; Neutrophils,Pleural Fluid 59 %; RBC,Pleural Fluid > 100000 T/CUMM
[2019-08-17] MEDS ORDERED: DEXTROSE 10% 250 ML BAG IV PRN (12:00)
[2019-08-17] MEDS ORDERED: DEXTROSE 10% 25 GM/250 ML BAG IV PRN (12:00)
[2019-08-17] MEDS: ATORVASTATIN 20 MG TABLET PO SCH (21:53)
[2019-08-18] MEDS: oxyCODONE/ACETAMINOPHEN 5-325 MG TABLET PO PRN ×2 (00:08→23:15)
[2019-08-18] MEDS: ALBUTEROL/IPRATROPIUM 3 ML NEB RESP TX SCH ×4 (01:15→19:26)
[2019-08-18] MEDS: INSULIN REGULAR 100 UNIT/ML SUBCUT SCH ×6 (02:04→23:56)
[2019-08-18 04:21] LABS: Basophils % 0.2 % (0.0-0.8); Eosinophils % 0.2 % (0.00-10.9); Hematocrit 28.6 VOL% (42.0-52.0); Hemoglobin 8.5 GM/DL (14.0-18.0); Immature Granulocytes % 5.1 %; Immature Granulocytes Absolute 0.91 #; Lymphocytes # 1.5 10*3/uL (1.4-4.0); Lymphocytes % 8.7 % (21.2-54.2); Mean Corpuscular HGB Conc 29.7 GM/DL (32-36); Mean Platelet Volume 12.3 FL (9.6-12.0); Monocytes % 3.6 % (1.7-12.7); NRBC # 0.77 10*3/uL; Neutrophils % 82.2 % (38.7-73.9); Platelet Count 130 T/CUMM (130-400); Red Blood Count 2.89 MC/CUMM (3.8-5.5); Red Cell Distribution Width 18.6 % (9.3-17.3); White Blood Count 17.7 T/CUMM (4-12)
[2019-08-18 04:32] LABS: ABG HCO3 25.3 MMOL/L (20-26); ABG Oxygen Saturation 99.2 % (95-100); ABG PCO2 29.4 MM HG (35-48); ABG PH 7.509 (7.35-7.45); ABG TCO2 21.3 MMOL/L (23-27); Allen Test Positive; Pt O2 Delivery Device Ventilator
[2019-08-18 04:47] LABS: Lymphocytes 6 % (20-55); Macrocytosis Slight; Nucleated Red Blood Cells 4 (0-5); Platelet Estimate Normal; Polychromasia Slight; Segmented Neutrophils 91 % (50-85); Total Cells Counted 100
[2019-08-18 04:51] LABS: Calcium 7.1 MG/DL (8.5-10.1); Osmolality,Calculated 280.8 MOS/KG (273-304)
[2019-08-18] MEDS: VANCOMYCIN INJ 750 MG in SODIUM CHLORIDE 0.9% 250 ML IV SCH ×2 (05:45→19:53)
[2019-08-18] MEDS: DORNASE ALFA 2.5 MG/2.5 ML VIAL RESP TX SCH ×2 (08:03→19:26)
[2019-08-18] MEDS: predniSONE 5 MG TABLET PO SCH (09:30)
[2019-08-18] MEDS: ASCORBIC ACID 500 MG TABLET NG SCH ×2 (09:30→20:29)
[2019-08-18] MEDS: SULFAMETHOX/TRIMETHOPRIM 200-40 MG/5 ML -20 ML UDCUP PO SCH ×2 (09:31→20:29)
[2019-08-18] MEDS: FLUCONAZOLE 200 MG TABLET PO SCH (09:31)
[2019-08-18] MEDS: AMIODARONE 200 MG TABLET PO SCH ×2 (09:31→20:29)
[2019-08-18] MEDS: ASPIRIN CHEW 81 MG TABLET PO SCH (09:31)
[2019-08-18] MEDS: POLYETHYLENE GLYCOL POWDER 17 GM PACK PO SCH (09:32)
[2019-08-18] MEDS: DOCUSATE SODIUM 100 MG/10 ML UDCUP PO SCH ×2 (09:32→20:29)
[2019-08-18] MEDS: VITAMIN B12 5000 MCG PO SCH (09:32)
[2019-08-18] MEDS: CHLORHEXIDINE 0.12% ORAL RINSE 60 ML BOTTLE SWISH/SPIT SCH ×2 (09:33→20:30)
[2019-08-18] MEDS: PANTOPRAZOLE 40 MG VIAL IV SCH (09:34)
[2019-08-18] MEDS: MUPIROCIN 2% OINT 22 GM TUBE TOP SCH ×2 (19:53→20:29)
[2019-08-18] MEDS ORDERED: DEXTROSE 50% 25 GM/50 ML VIAL IV PRN (19:59)
[2019-08-18] MEDS ORDERED: GLUCAGON 1 MG VIAL IM PRN (19:59)
[2019-08-18] MEDS: ATORVASTATIN 20 MG TABLET PO SCH (20:29)
[2019-08-19] MEDS: ALBUTEROL/IPRATROPIUM 3 ML NEB RESP TX SCH ×4 (01:24→19:59)
[2019-08-19 04:49] LABS: ABG Base Excess 1.4 MMOL/L (-2.5-2.5); ABG HCO3 25.7 MMOL/L (20-26); ABG Oxygen Saturation 99.4 % (95-100); Allen Test Positive; Pt O2 Delivery Device Ventilator
[2019-08-19] MEDS: INSULIN REGULAR 100 UNIT/ML SUBCUT SCH ×3 (05:34→19:06)
[2019-08-19] MEDS: VANCOMYCIN INJ 750 MG in SODIUM CHLORIDE 0.9% 250 ML IV SCH ×2 (05:58→17:45)
[2019-08-19] MEDS: DORNASE ALFA 2.5 MG/2.5 ML VIAL RESP TX SCH ×2 (08:04→19:59)
[2019-08-19] MEDS: DOCUSATE SODIUM 100 MG/10 ML UDCUP PO SCH ×2 (08:35→20:56)
[2019-08-19] MEDS: AMIODARONE 200 MG TABLET PO SCH ×2 (08:36→20:56)
[2019-08-19] MEDS: predniSONE 5 MG TABLET PO SCH (08:36)
[2019-08-19] MEDS: SULFAMETHOX/TRIMETHOPRIM 200-40 MG/5 ML -20 ML UDCUP PO SCH ×2 (08:36→20:58)
[2019-08-19] MEDS: ASPIRIN CHEW 81 MG TABLET PO SCH (08:36)
[2019-08-19] MEDS: ASCORBIC ACID 500 MG TABLET NG SCH ×2 (08:36→20:56)
[2019-08-19] MEDS: FLUCONAZOLE 200 MG TABLET PO SCH (08:36)
[2019-08-19] MEDS: POLYETHYLENE GLYCOL POWDER 17 GM PACK PO SCH (08:36)
[2019-08-19] MEDS: CHLORHEXIDINE 0.12% ORAL RINSE 60 ML BOTTLE SWISH/SPIT SCH ×2 (08:37→20:56)
[2019-08-19] MEDS: MUPIROCIN 2% OINT 22 GM TUBE TOP SCH ×2 (08:37→20:59)
[2019-08-19] MEDS: VITAMIN B12 5000 MCG PO SCH (08:37)
[2019-08-19] MEDS: PANTOPRAZOLE 40 MG VIAL IV SCH (08:58)
[2019-08-19] MEDS: ATORVASTATIN 20 MG TABLET PO SCH (20:56)
[2019-08-20] MEDS: ALBUTEROL/IPRATROPIUM 3 ML NEB RESP TX SCH ×4 (00:26→20:16)
[2019-08-20] MEDS: INSULIN REGULAR 100 UNIT/ML SUBCUT SCH ×4 (00:35→18:59)
[2019-08-20 04:31] LABS: ABG Base Excess 0.1 MMOL/L (-2.5-2.5); ABG HCO3 22.4 MMOL/L (20-26); ABG Oxygen Saturation 98.2 % (95-100); ABG PH 7.521 (7.35-7.45); ABG PO2 110.9 MM HG (80-95); ABG TCO2 23.3 MMOL/L (23-27); Allen Test Positive; Pt O2 Delivery Device Ventilator
[2019-08-20] MEDS: VANCOMYCIN INJ 750 MG in SODIUM CHLORIDE 0.9% 250 ML IV SCH (05:37)
[2019-08-20] MEDS: POLYETHYLENE GLYCOL POWDER 17 GM PACK PO SCH (09:33)
[2019-08-20] MEDS: AMIODARONE 200 MG TABLET PO SCH ×2 (09:33→20:19)
[2019-08-20] MEDS: DOCUSATE SODIUM 100 MG/10 ML UDCUP PO SCH ×2 (09:33→20:19)
[2019-08-20] MEDS: ASPIRIN CHEW 81 MG TABLET PO SCH (09:40)
[2019-08-20] MEDS: predniSONE 5 MG TABLET PO SCH (09:40)
[2019-08-20] MEDS: ASCORBIC ACID 500 MG TABLET NG SCH ×2 (09:40→20:19)
[2019-08-20] MEDS: FLUCONAZOLE 200 MG TABLET PO SCH (09:40)
[2019-08-20] MEDS: VITAMIN B12 5000 MCG PO SCH (09:41)
[2019-08-20] MEDS: PANTOPRAZOLE 40 MG VIAL IV SCH (09:41)
[2019-08-20] MEDS: CHLORHEXIDINE 0.12% ORAL RINSE 60 ML BOTTLE SWISH/SPIT SCH ×2 (09:42→20:42)
[2019-08-20] MEDS: MUPIROCIN 2% OINT 22 GM TUBE TOP SCH ×2 (09:42→20:42)
[2019-08-20] MEDS: DORNASE ALFA 2.5 MG/2.5 ML VIAL RESP TX SCH ×2 (10:15→20:17)
[2019-08-20] MEDS: SULFAMETHOX/TRIMETHOPRIM 200-40 MG/5 ML -20 ML UDCUP PO SCH ×2 (11:00→20:21)
[2019-08-20] MEDS: MICAFUNGIN 150 MG in SODIUM CHLORIDE 0.9% 100 ML IV SCH (13:07)
[2019-08-20] MEDS: oxyCODONE/ACETAMINOPHEN 5-325 MG TABLET PO PRN (14:44)
[2019-08-20] MEDS: FUROSEMIDE 20 MG/2 ML VIAL IV SCH (17:05)
[2019-08-20] MEDS: ATORVASTATIN 20 MG TABLET PO SCH (20:19)
[2019-08-21] MEDS: INSULIN REGULAR 100 UNIT/ML SUBCUT SCH ×4 (01:05→18:00)
[2019-08-21] MEDS: ALBUTEROL/IPRATROPIUM 3 ML NEB RESP TX SCH ×4 (02:10→19:20)
[2019-08-21 04:54] LABS: Basophils % 0.2 % (0.0-0.8); Eosinophils # 0.1 10*3/uL (0.0-0.87); Eosinophils % 0.3 % (0.00-10.9); Hematocrit 26.9 VOL% (42.0-52.0); Hemoglobin 8.2 GM/DL (14.0-18.0); Immature Granulocytes Absolute 0.47 #; Lymphocytes # 1.5 10*3/uL (1.4-4.0); Lymphocytes % 9.6 % (21.2-54.2); Mean Corpuscular HGB Conc 30.5 GM/DL (32-36); Mean Corpuscular Volume 95.4 FL (87-102); Mean Platelet Volume 11.8 FL (9.6-12.0); Monocytes % 4.7 % (1.7-12.7); NRBC # 0.31 10*3/uL; Neutrophils % 82.2 % (38.7-73.9); Platelet Count 129 T/CUMM (130-400); Red Blood Count 2.82 MC/CUMM (3.8-5.5); Red Cell Distribution Width 19.1 % (9.3-17.3); White Blood Count 15.7 T/CUMM (4-12)
[2019-08-21 05:36] LABS: Albumin 1.2 G/DL (3.4-5.0); Bilirubin,Total 0.5 MG/DL (0.2-1.0); Calcium 7.5 MG/DL (8.5-10.1); Osmolality,Calculated 279.5 MOS/KG (273-304); Total Protein 5.1 G/DL (6.4-8.3)
[2019-08-21 05:37] LABS: Prealbumin 15.1 MG/DL (20-40)
[2019-08-21 05:38] LABS: Albumin 1.2 G/DL (3.4-5.0); Calcium 7.3 MG/DL (8.5-10.1); Osmolality,Calculated 281.4 MOS/KG (273-304)
[2019-08-21] MEDS: DORNASE ALFA 2.5 MG/2.5 ML VIAL RESP TX SCH ×2 (07:29→19:30)
[2019-08-21] MEDS ORDERED: ALBUMIN 25% 12.5 GM in PREMIX 1 EACH IV SCH (07:30)
[2019-08-21] MEDS: PANTOPRAZOLE 40 MG VIAL IV SCH (08:15)
[2019-08-21] MEDS: FUROSEMIDE 20 MG/2 ML VIAL IV SCH ×2 (08:17→16:30)
[2019-08-21] MEDS: SULFAMETHOX/TRIMETHOPRIM 200-40 MG/5 ML -20 ML UDCUP PO SCH ×2 (08:20→22:42)
[2019-08-21] MEDS: DOCUSATE SODIUM 100 MG/10 ML UDCUP PO SCH ×2 (08:20→22:42)
[2019-08-21] MEDS: ALBUMIN 25% 12.5 GM in PREMIX 1 EACH IV SCH ×2 (08:20→20:27)
[2019-08-21] MEDS: ASCORBIC ACID 500 MG TABLET NG SCH ×2 (08:20→22:43)
[2019-08-21] MEDS: predniSONE 5 MG TABLET PO SCH (08:20)
[2019-08-21] MEDS: AMIODARONE 200 MG TABLET PO SCH ×2 (08:20→22:43)
[2019-08-21] MEDS: ASPIRIN CHEW 81 MG TABLET PO SCH (08:20)
[2019-08-21] MEDS: VITAMIN B12 5000 MCG PO SCH (08:20)
[2019-08-21] MEDS: CHLORHEXIDINE 0.12% ORAL RINSE 60 ML BOTTLE SWISH/SPIT SCH ×2 (08:30→22:43)
[2019-08-21] MEDS: MUPIROCIN 2% OINT 22 GM TUBE TOP SCH ×2 (08:45→22:43)
[2019-08-21] MEDS: POLYETHYLENE GLYCOL POWDER 17 GM PACK PO SCH (09:00)
[2019-08-21] MEDS: MICAFUNGIN 150 MG in SODIUM CHLORIDE 0.9% 100 ML IV SCH (12:45)
[2019-08-21] MEDS: ATORVASTATIN 20 MG TABLET PO SCH (22:43)
[2019-08-22] MEDS: ALBUTEROL/IPRATROPIUM 3 ML NEB RESP TX SCH ×4 (00:25→19:35)
[2019-08-22] MEDS: INSULIN REGULAR 100 UNIT/ML SUBCUT SCH ×4 (00:45→18:00)
[2019-08-22 03:28] LABS: Allen Test Positive; Pt O2 Delivery Device Ventilator
[2019-08-22 03:30] LABS: ABG Base Excess 1.7 MMOL/L (-2.5-2.5); ABG Oxygen Saturation 99.8 % (95-100); ABG PCO2 29.1 MM HG (35-48); ABG PH 7.526 (7.35-7.45); ABG TCO2 22.5 MMOL/L (23-27)
[2019-08-22 05:00] LABS: Basophils % 0.2 % (0.0-0.8); Eosinophils # 0.1 10*3/uL (0.0-0.87); Eosinophils % 0.4 % (0.00-10.9); Hematocrit 25.4 VOL% (42.0-52.0); Hemoglobin 7.6 GM/DL (14.0-18.0); Immature Granulocytes Absolute 0.25 #; Lymphocytes # 1.3 10*3/uL (1.4-4.0); Lymphocytes % 10.1 % (21.2-54.2); Mean Corpuscular HGB Conc 29.9 GM/DL (32-36); Mean Corpuscular Volume 97.7 FL (87-102); Mean Platelet Volume 12.2 FL (9.6-12.0); Monocytes % 4.9 % (1.7-12.7); NRBC # 0.19 10*3/uL; Neutrophils % 82.4 % (38.7-73.9); Platelet Count 118 T/CUMM (130-400); Red Cell Distribution Width 19.2 % (9.3-17.3); White Blood Count 12.6 T/CUMM (4-12)
[2019-08-22 05:22] LABS: Alanine Aminotransferase 128 U/L (16-61); Albumin 1.4 G/DL (3.4-5.0); Alkaline Phosphatase 120 U/L (45-117); Aspartate Amino Transferase 65 U/L (0-37); Bilirubin,Total < 0.39 MG/DL (0.2-1.0); Blood Urea Nitrogen 23 MG/DL (7-18); Calcium 7.5 MG/DL (8.5-10.1); Estimated Glom Filtration Rate 100 ML/MIN; Glucose 120 MG/DL (74-106); Osmolality,Calculated 277.8 MOS/KG (273-304); Total Protein 5.1 G/DL (6.4-8.3)
[2019-08-22] MEDS: DORNASE ALFA 2.5 MG/2.5 ML VIAL RESP TX SCH ×2 (06:53→19:35)
[2019-08-22] MEDS: PANTOPRAZOLE 40 MG VIAL IV SCH (07:40)
[2019-08-22] MEDS: FUROSEMIDE 20 MG/2 ML VIAL IV SCH ×2 (07:43→17:05)
[2019-08-22] MEDS: ALBUMIN 25% 12.5 GM in PREMIX 1 EACH IV SCH ×2 (07:45→20:35)
[2019-08-22] MEDS: SULFAMETHOX/TRIMETHOPRIM 200-40 MG/5 ML -20 ML UDCUP PO SCH ×2 (08:30→20:21)
[2019-08-22] MEDS: DOCUSATE SODIUM 100 MG/10 ML UDCUP PO SCH ×2 (08:30→20:16)
[2019-08-22] MEDS: ASCORBIC ACID 500 MG TABLET NG SCH ×2 (08:30→20:16)
[2019-08-22] MEDS: AMIODARONE 200 MG TABLET PO SCH ×2 (08:30→20:16)
[2019-08-22] MEDS: ASPIRIN CHEW 81 MG TABLET PO SCH (08:30)
[2019-08-22] MEDS: VITAMIN B12 5000 MCG PO SCH (08:30)
[2019-08-22] MEDS: predniSONE 5 MG TABLET PO SCH (08:30)
[2019-08-22] MEDS: MUPIROCIN 2% OINT 22 GM TUBE TOP SCH ×2 (08:45→20:16)
[2019-08-22] MEDS: CHLORHEXIDINE 0.12% ORAL RINSE 60 ML BOTTLE SWISH/SPIT SCH ×2 (08:45→20:16)
[2019-08-22] MEDS: POLYETHYLENE GLYCOL POWDER 17 GM PACK PO SCH (09:00)
[2019-08-22] MEDS ORDERED: SODIUM CHLORIDE 0.9% 250 ML IV PRN (09:02)
[2019-08-22] MEDS: MICAFUNGIN 150 MG in SODIUM CHLORIDE 0.9% 100 ML IV SCH (13:30)
[2019-08-22] MEDS: ATORVASTATIN 20 MG TABLET PO SCH (20:16)
[2019-08-23] MEDS: INSULIN REGULAR 100 UNIT/ML SUBCUT SCH ×4 (00:17→18:21)
[2019-08-23] MEDS: ALBUTEROL/IPRATROPIUM 3 ML NEB RESP TX SCH ×4 (00:40→19:24)
[2019-08-23 04:06] LABS: Allen Test Positive; Pt O2 Delivery Device Ventilator
[2019-08-23 04:13] LABS: ABG Base Excess 2.8 MMOL/L (-2.5-2.5); ABG HCO3 26.9 MMOL/L (20-26); ABG Oxygen Saturation 99.2 % (95-100); ABG PCO2 34.2 MM HG (35-48); ABG PH 7.488 (7.35-7.45); ABG TCO2 23.7 MMOL/L (23-27)
[2019-08-23 04:35] LABS: Basophils % 0.2 % (0.0-0.8); Eosinophils # 0.1 10*3/uL (0.0-0.87); Eosinophils % 0.6 % (0.00-10.9); Hematocrit 29.4 VOL% (42.0-52.0); Hemoglobin 9.1 GM/DL (14.0-18.0); Immature Granulocytes % 1.9 %; Immature Granulocytes Absolute 0.24 #; Lymphocytes # 1.5 10*3/uL (1.4-4.0); Lymphocytes % 11.6 % (21.2-54.2); Mean Corpuscular Volume 95.1 FL (87-102); Mean Platelet Volume 11.1 FL (9.6-12.0); Monocytes % 5.3 % (1.7-12.7); NRBC # 0.12 10*3/uL; Neutrophils % 80.4 % (38.7-73.9); Platelet Count 119 T/CUMM (130-400); Red Blood Count 3.09 MC/CUMM (3.8-5.5); Red Cell Distribution Width 19.4 % (9.3-17.3); White Blood Count 12.7 T/CUMM (4-12)
[2019-08-23 04:56] LABS: Alanine Aminotransferase 135 U/L (16-61); Albumin 1.9 G/DL (3.4-5.0); Alkaline Phosphatase 118 U/L (45-117); Aspartate Amino Transferase 77 U/L (0-37); Bilirubin,Total < 0.39 MG/DL (0.2-1.0); Blood Urea Nitrogen 31 MG/DL (7-18); Calcium 7.8 MG/DL (8.5-10.1); Estimated Glom Filtration Rate 100 ML/MIN; Glucose 113 MG/DL (74-106); Osmolality,Calculated 284.5 MOS/KG (273-304); Total Protein 5.4 G/DL (6.4-8.3)
[2019-08-23] MEDS: DORNASE ALFA 2.5 MG/2.5 ML VIAL RESP TX SCH ×2 (06:47→19:24)
[2019-08-23] MEDS: predniSONE 5 MG TABLET PO SCH (08:49)
[2019-08-23] MEDS: ASPIRIN CHEW 81 MG TABLET PO SCH (08:49)
[2019-08-23] MEDS: MUPIROCIN 2% OINT 22 GM TUBE TOP SCH ×2 (08:49→20:01)
[2019-08-23] MEDS: ASCORBIC ACID 500 MG TABLET NG SCH ×2 (08:49→20:01)
[2019-08-23] MEDS: ALBUMIN 25% 12.5 GM in PREMIX 1 EACH IV SCH ×2 (08:49→20:19)
[2019-08-23] MEDS: SULFAMETHOX/TRIMETHOPRIM 200-40 MG/5 ML -20 ML UDCUP PO SCH ×2 (08:49→20:01)
[2019-08-23] MEDS: AMIODARONE 200 MG TABLET PO SCH ×2 (08:49→20:01)
[2019-08-23] MEDS: POLYETHYLENE GLYCOL POWDER 17 GM PACK PO SCH (08:50)
[2019-08-23] MEDS: CHLORHEXIDINE 0.12% ORAL RINSE 60 ML BOTTLE SWISH/SPIT SCH ×2 (08:50→21:40)
[2019-08-23] MEDS: DOCUSATE SODIUM 100 MG/10 ML UDCUP PO SCH ×2 (08:50→20:01)
[2019-08-23] MEDS: VITAMIN B12 5000 MCG PO SCH (08:51)
[2019-08-23] MEDS: FUROSEMIDE 20 MG/2 ML VIAL IV SCH ×2 (08:52→18:40)
[2019-08-23] MEDS: PANTOPRAZOLE 40 MG VIAL IV SCH (08:55)
[2019-08-23] MEDS: MICAFUNGIN 150 MG in SODIUM CHLORIDE 0.9% 100 ML IV SCH (12:43)
[2019-08-23] MEDS: ATORVASTATIN 20 MG TABLET PO SCH (20:01)
[2019-08-24] MEDS: INSULIN REGULAR 100 UNIT/ML SUBCUT SCH ×5 (00:01→23:00)
[2019-08-24] MEDS: ALBUTEROL/IPRATROPIUM 3 ML NEB RESP TX SCH ×4 (00:16→19:01)
[2019-08-24 03:46] LABS: ABG HCO3 25.2 MMOL/L (20-26); ABG Oxygen Saturation 98.1 % (95-100); ABG PCO2 33.9 MM HG (35-48); ABG PH 7.489 (7.35-7.45); ABG PO2 111.4 MM HG (80-95); ABG TCO2 26.2 MMOL/L (23-27); Allen Test Positive; Pt O2 Delivery Device Ventilator
[2019-08-24 04:42] LABS: Basophils % 0.3 % (0.0-0.8); Eosinophils # 0.1 10*3/uL (0.0-0.87); Eosinophils % 0.5 % (0.00-10.9); Hematocrit 30.6 VOL% (42.0-52.0); Hemoglobin 9.1 GM/DL (14.0-18.0); Immature Granulocytes % 1.4 %; Immature Granulocytes Absolute 0.17 #; Lymphocytes # 1.3 10*3/uL (1.4-4.0); Lymphocytes % 10.7 % (21.2-54.2); Mean Corpuscular HGB Conc 29.7 GM/DL (32-36); Mean Corpuscular Volume 97.1 FL (87-102); Mean Platelet Volume 11.7 FL (9.6-12.0); Monocytes % 5.8 % (1.7-12.7); NRBC # 0.05 10*3/uL; Neutrophils % 81.3 % (38.7-73.9); Platelet Count 129 T/CUMM (130-400); Red Blood Count 3.15 MC/CUMM (3.8-5.5); White Blood Count 12.2 T/CUMM (4-12)
[2019-08-24 04:57] LABS: Bilirubin,Total 0.5 MG/DL (0.2-1.0); Calcium 7.6 MG/DL (8.5-10.1); Prealbumin 14.1 MG/DL (20-40); Total Protein 5.5 G/DL (6.4-8.3)
[2019-08-24] MEDS: DORNASE ALFA 2.5 MG/2.5 ML VIAL RESP TX SCH ×2 (07:52→19:01)
[2019-08-24] MEDS: SULFAMETHOX/TRIMETHOPRIM 200-40 MG/5 ML -20 ML UDCUP PO SCH ×2 (09:08→20:15)
[2019-08-24] MEDS: POLYETHYLENE GLYCOL POWDER 17 GM PACK PO SCH (09:08)
[2019-08-24] MEDS: DOCUSATE SODIUM 100 MG/10 ML UDCUP PO SCH ×2 (09:10→20:15)
[2019-08-24] MEDS: MIDODRINE 5 MG TABLET PO SCH ×3 (09:10→20:15)
[2019-08-24] MEDS: ASPIRIN CHEW 81 MG TABLET PO SCH (09:11)
[2019-08-24] MEDS: ASCORBIC ACID 500 MG TABLET NG SCH ×2 (09:11→20:15)
[2019-08-24] MEDS: predniSONE 5 MG TABLET PO SCH (09:11)
[2019-08-24] MEDS: AMIODARONE 200 MG TABLET PO SCH ×2 (09:11→20:15)
[2019-08-24] MEDS: VITAMIN B12 5000 MCG PO SCH (09:11)
[2019-08-24] MEDS: PANTOPRAZOLE 40 MG VIAL IV SCH (09:22)
[2019-08-24] MEDS: FUROSEMIDE 20 MG/2 ML VIAL IV SCH ×2 (09:22→16:23)
[2019-08-24] MEDS: MUPIROCIN 2% OINT 22 GM TUBE TOP SCH ×2 (09:23→20:16)
[2019-08-24] MEDS: CHLORHEXIDINE 0.12% ORAL RINSE 60 ML BOTTLE SWISH/SPIT SCH ×2 (09:23→20:16)
[2019-08-24] MEDS ORDERED: FUROSEMIDE 40 MG/4 ML VIAL IV ONE (10:03)
[2019-08-24] MEDS: methylPREDNISolone SOD SUC 40 MG/1 ML VIAL IV SCH ×3 (11:22→23:00)
[2019-08-24] MEDS: MICAFUNGIN 150 MG in SODIUM CHLORIDE 0.9% 100 ML IV SCH (13:45)
[2019-08-24 14:01] LABS: Lymphocytes,Pleural Fluid 68 %; Monocytes,Pleural Fluid 5 %; Neutrophils,Pleural Fluid 27 %
[2019-08-24 14:02] LABS: RBC,Pleural Fluid > 100000 T/CUMM
[2019-08-24 14:06] LABS: Total Protein,Pleural Fluid 2.4 G/DL
[2019-08-24] MEDS: oxyCODONE/ACETAMINOPHEN 5-325 MG TABLET PO PRN (14:30)
[2019-08-24] MEDS: ATORVASTATIN 20 MG TABLET PO SCH (20:15)
[2019-08-25] MEDS: ALBUTEROL/IPRATROPIUM 3 ML NEB RESP TX SCH ×4 (01:03→20:00)
[2019-08-25 04:15] LABS: ABG Base Excess 2.1 MMOL/L (-2.5-2.5); ABG HCO3 24.9 MMOL/L (20-26); ABG Oxygen Saturation 98.6 % (95-100); ABG PCO2 32.3 MM HG (35-48); ABG PH 7.505 (7.35-7.45); ABG PO2 129.5 MM HG (80-95); ABG TCO2 25.9 MMOL/L (23-27); Allen Test Positive
[2019-08-25 05:27] LABS: Basophils % 0.1 % (0.0-0.8); Hematocrit 32.5 VOL% (42.0-52.0); Hemoglobin 9.7 GM/DL (14.0-18.0); Immature Granulocytes % 1.1 %; Immature Granulocytes Absolute 0.15 #; Lymphocytes # 1.2 10*3/uL (1.4-4.0); Lymphocytes % 8.7 % (21.2-54.2); Mean Corpuscular HGB Conc 29.8 GM/DL (32-36); Mean Corpuscular Volume 96.4 FL (87-102); Mean Platelet Volume 11.7 FL (9.6-12.0); Monocytes % 3.2 % (1.7-12.7); Neutrophils % 86.9 % (38.7-73.9); Platelet Count 136 T/CUMM (130-400); Red Blood Count 3.37 MC/CUMM (3.8-5.5); Red Cell Distribution Width 18.7 % (9.3-17.3); White Blood Count 13.4 T/CUMM (4-12)
[2019-08-25] MEDS: methylPREDNISolone SOD SUC 40 MG/1 ML VIAL IV SCH ×3 (05:32→16:04)
[2019-08-25] MEDS: INSULIN REGULAR 100 UNIT/ML SUBCUT SCH ×3 (05:41→18:37)
[2019-08-25 05:58] LABS: Albumin 1.9 G/DL (3.4-5.0); Bilirubin,Total 0.4 MG/DL (0.2-1.0); Calcium 7.6 MG/DL (8.5-10.1); Osmolality,Calculated 292.3 MOS/KG (273-304); Total Protein 5.6 G/DL (6.4-8.3)
[2019-08-25] MEDS: DORNASE ALFA 2.5 MG/2.5 ML VIAL RESP TX SCH ×2 (07:31→20:27)
[2019-08-25] MEDS ORDERED: ACETYLCYSTEINE 20% 800 MG/4 ML VIAL RESP TX ONE (08:20)
[2019-08-25] MEDS ORDERED: MIDAZOLAM 2 MG/2 ML VIAL ONE (08:28)
[2019-08-25] MEDS ORDERED: MIDAZOLAM 2 MG/2 ML VIAL IV ONE ×2 (08:30→10:20)
[2019-08-25 08:41] LABS: Adenosine Deaminase Pleural Fl 7.5 U/L (0.0 - 9.4); Source PLEURAL FLUID
[2019-08-25] MEDS ORDERED: MIDAZOLAM 10 MG/2 ML VIAL ONE (10:14)
[2019-08-25] MEDS ORDERED: VANCOMYCIN INJ 1,250 MG in SODIUM CHLORIDE 0.9% 250 ML IV ONE (11:00)
[2019-08-25] MEDS: predniSONE 5 MG TABLET PO SCH (11:50)
[2019-08-25] MEDS: POLYETHYLENE GLYCOL POWDER 17 GM PACK PO SCH (11:50)
[2019-08-25] MEDS: MIDODRINE 5 MG TABLET PO SCH ×3 (11:50→20:37)
[2019-08-25] MEDS: ASCORBIC ACID 500 MG TABLET NG SCH ×2 (11:51→20:37)
[2019-08-25] MEDS: FUROSEMIDE 20 MG/2 ML VIAL IV SCH ×2 (11:51→16:04)
[2019-08-25] MEDS: ASPIRIN CHEW 81 MG TABLET PO SCH (11:51)
[2019-08-25] MEDS: DOCUSATE SODIUM 100 MG/10 ML UDCUP PO SCH ×2 (11:51→20:37)
[2019-08-25] MEDS: AMIODARONE 200 MG TABLET PO SCH ×2 (11:51→20:37)
[2019-08-25] MEDS: PANTOPRAZOLE 40 MG VIAL IV SCH (11:52)
[2019-08-25] MEDS: VITAMIN B12 5000 MCG PO SCH (11:53)
[2019-08-25] MEDS: SULFAMETHOX/TRIMETHOPRIM 200-40 MG/5 ML -20 ML UDCUP PO SCH ×2 (12:00→20:38)
[2019-08-25] MEDS: MUPIROCIN 2% OINT 22 GM TUBE TOP SCH ×2 (12:01→20:42)
[2019-08-25] MEDS: CHLORHEXIDINE 0.12% ORAL RINSE 60 ML BOTTLE SWISH/SPIT SCH ×2 (12:01→20:38)
[2019-08-25] MEDS: MICAFUNGIN 150 MG in SODIUM CHLORIDE 0.9% 100 ML IV SCH (14:47)
[2019-08-25] MEDS: ATORVASTATIN 20 MG TABLET PO SCH (20:37)
[2019-08-25] MEDS: MORPHINE 4 MG/1 ML VIAL IV PRN (21:12)
[2019-08-26] MEDS: INSULIN REGULAR 100 UNIT/ML SUBCUT SCH ×5 (00:30→23:42)
[2019-08-26] MEDS: VANCOMYCIN INJ 1,000 MG in SODIUM CHLORIDE 0.9% 250 ML IV SCH ×3 (00:31→23:43)
[2019-08-26] MEDS: methylPREDNISolone SOD SUC 40 MG/1 ML VIAL IV SCH ×3 (00:35→18:28)
[2019-08-26] MEDS: ALBUTEROL/IPRATROPIUM 3 ML NEB RESP TX SCH ×4 (01:15→18:58)
[2019-08-26 04:35] LABS: ABG HCO3 25.4 MMOL/L (20-26); ABG Oxygen Saturation 99.1 % (95-100); ABG PCO2 35.2 MM HG (35-48); ABG PH 7.476 (7.35-7.45); ABG PO2 206.2 MM HG (80-95); ABG TCO2 26.5 MMOL/L (23-27); Allen Test Positive
[2019-08-26 05:33] LABS: Hemoglobin 9.4 GM/DL (14.0-18.0); Immature Granulocytes % 1.2 %; Immature Granulocytes Absolute 0.15 #; Lymphocytes # 0.8 10*3/uL (1.4-4.0); Lymphocytes % 6.1 % (21.2-54.2); Mean Corpuscular HGB Conc 29.4 GM/DL (32-36); Mean Corpuscular Volume 98.5 FL (87-102); Mean Platelet Volume 11.6 FL (9.6-12.0); Monocytes % 4.1 % (1.7-12.7); Neutrophils % 88.6 % (38.7-73.9); Platelet Count 157 T/CUMM (130-400); Red Blood Count 3.25 MC/CUMM (3.8-5.5); Red Cell Distribution Width 18.5 % (9.3-17.3); White Blood Count 12.4 T/CUMM (4-12)
[2019-08-26 05:56] LABS: Alanine Aminotransferase 126 U/L (16-61); Albumin 1.8 G/DL (3.4-5.0); Alkaline Phosphatase 116 U/L (45-117); Aspartate Amino Transferase 46 U/L (0-37); Bilirubin,Total < 0.39 MG/DL (0.2-1.0); Blood Urea Nitrogen 40 MG/DL (7-18); Calcium 7.9 MG/DL (8.5-10.1); Estimated Glom Filtration Rate 98 ML/MIN; Glucose 184 MG/DL (74-106); Osmolality,Calculated 289.7 MOS/KG (273-304); Total Protein 5.4 G/DL (6.4-8.3)
[2019-08-26] MEDS: DORNASE ALFA 2.5 MG/2.5 ML VIAL RESP TX SCH ×2 (07:31→19:05)
[2019-08-26] MEDS: AMIODARONE 200 MG TABLET PO SCH ×2 (09:19→20:38)
[2019-08-26] MEDS: predniSONE 5 MG TABLET PO SCH (09:19)
[2019-08-26] MEDS: ASPIRIN CHEW 81 MG TABLET PO SCH (09:19)
[2019-08-26] MEDS: ASCORBIC ACID 500 MG TABLET NG SCH ×2 (09:19→20:38)
[2019-08-26] MEDS: MIDODRINE 5 MG TABLET PO SCH ×3 (09:19→20:38)
[2019-08-26] MEDS: VITAMIN B12 5000 MCG PO SCH (09:20)
[2019-08-26] MEDS: DOCUSATE SODIUM 100 MG/10 ML UDCUP PO SCH ×2 (09:20→20:37)
[2019-08-26] MEDS: POLYETHYLENE GLYCOL POWDER 17 GM PACK PO SCH (09:20)
[2019-08-26] MEDS: CHLORHEXIDINE 0.12% ORAL RINSE 60 ML BOTTLE SWISH/SPIT SCH ×2 (09:20→20:38)
[2019-08-26] MEDS: SULFAMETHOX/TRIMETHOPRIM 200-40 MG/5 ML -20 ML UDCUP PO SCH ×2 (09:20→20:37)
[2019-08-26] MEDS: FUROSEMIDE 20 MG/2 ML VIAL IV SCH ×2 (09:20→15:27)
[2019-08-26] MEDS: PANTOPRAZOLE 40 MG VIAL IV SCH (09:23)
[2019-08-26] MEDS: MICAFUNGIN 50 MG, MICAFUNGIN 100 MG in SODIUM CHLORIDE 0.9% 100 ML IV SCH (15:29)
[2019-08-26] MEDS: MUPIROCIN 2% OINT 22 GM TUBE TOP SCH ×2 (16:51→20:38)
[2019-08-26] MEDS: oxyCODONE/ACETAMINOPHEN 5-325 MG TABLET PO PRN (17:04)
[2019-08-26] MEDS: ATORVASTATIN 20 MG TABLET PO SCH (20:38)
[2019-08-27] MEDS: ALBUTEROL/IPRATROPIUM 3 ML NEB RESP TX SCH ×4 (00:29→19:39)
[2019-08-27 03:22] LABS: ABG Base Excess 4.3 MMOL/L (-2.5-2.5); ABG HCO3 28.3 MMOL/L (20-26); ABG Oxygen Saturation 99.3 % (95-100); ABG PCO2 35.3 MM HG (35-48); ABG TCO2 25.1 MMOL/L (23-27)
[2019-08-27 03:23] LABS: Allen Test Positive
[2019-08-27] MEDS: INSULIN REGULAR 100 UNIT/ML SUBCUT SCH ×3 (05:45→17:50)
[2019-08-27] MEDS: methylPREDNISolone SOD SUC 40 MG/1 ML VIAL IV SCH ×2 (05:46→18:33)
[2019-08-27] MEDS: DORNASE ALFA 2.5 MG/2.5 ML VIAL RESP TX SCH ×2 (07:19→19:39)
[2019-08-27] MEDS: DOCUSATE SODIUM 100 MG/10 ML UDCUP PO SCH ×2 (08:12→20:18)
[2019-08-27] MEDS: SULFAMETHOX/TRIMETHOPRIM 200-40 MG/5 ML -20 ML UDCUP PO SCH (08:12)
[2019-08-27] MEDS: ASCORBIC ACID 500 MG TABLET NG SCH ×2 (08:13→20:14)
[2019-08-27] MEDS: oxyCODONE/ACETAMINOPHEN 5-325 MG TABLET PO PRN (08:13)
[2019-08-27] MEDS: AMIODARONE 200 MG TABLET PO SCH ×2 (08:13→20:13)
[2019-08-27] MEDS: MIDODRINE 5 MG TABLET PO SCH ×3 (08:13→20:13)
[2019-08-27] MEDS: VITAMIN B12 5000 MCG PO SCH (08:14)
[2019-08-27] MEDS: predniSONE 5 MG TABLET PO SCH (08:14)
[2019-08-27] MEDS: POLYETHYLENE GLYCOL POWDER 17 GM PACK PO SCH (08:14)
[2019-08-27] MEDS: ASPIRIN CHEW 81 MG TABLET PO SCH (08:14)
[2019-08-27] MEDS: FUROSEMIDE 20 MG/2 ML VIAL IV SCH ×2 (08:14→16:02)
[2019-08-27] MEDS: CHLORHEXIDINE 0.12% ORAL RINSE 60 ML BOTTLE SWISH/SPIT SCH ×2 (08:14→20:18)
[2019-08-27] MEDS: PANTOPRAZOLE 40 MG VIAL IV SCH (08:16)
[2019-08-27] MEDS: CIPROFLOXACIN INJ 400 MG in PREMIX 1 EACH IV SCH (12:13)
[2019-08-27] MEDS: MICAFUNGIN 50 MG, MICAFUNGIN 100 MG in SODIUM CHLORIDE 0.9% 100 ML IV SCH (13:36)
[2019-08-27 14:36] LABS: CEA, Pleural Fluid 14 ng/mL
[2019-08-27] MEDS: MUPIROCIN 2% OINT 22 GM TUBE TOP SCH ×2 (16:20→20:18)
[2019-08-27] MEDS: ATORVASTATIN 20 MG TABLET PO SCH (20:14)
[2019-08-28] MEDS: INSULIN REGULAR 100 UNIT/ML SUBCUT SCH ×4 (00:04→18:12)
[2019-08-28] MEDS: CIPROFLOXACIN INJ 400 MG in PREMIX 1 EACH IV SCH ×2 (00:10→13:43)
[2019-08-28] MEDS: ALBUTEROL/IPRATROPIUM 3 ML NEB RESP TX SCH ×4 (00:39→19:03)
[2019-08-28 03:36] LABS: ABG Base Excess 4.2 MMOL/L (-2.5-2.5); ABG HCO3 28.2 MMOL/L (20-26); ABG Oxygen Saturation 99.4 % (95-100); ABG PCO2 35.9 MM HG (35-48); ABG PH 7.492 (7.35-7.45); ABG TCO2 25.1 MMOL/L (23-27); Allen Test Positive
[2019-08-28] MEDS: methylPREDNISolone SOD SUC 40 MG/1 ML VIAL IV SCH ×2 (05:41→18:32)
[2019-08-28 06:18] LABS: Basophils % 0.1 % (0.0-0.8); Hematocrit 32.8 VOL% (42.0-52.0); Hemoglobin 9.7 GM/DL (14.0-18.0); Immature Granulocytes % 1.9 %; Immature Granulocytes Absolute 0.23 #; Lymphocytes % 8.1 % (21.2-54.2); Mean Corpuscular HGB Conc 29.6 GM/DL (32-36); Mean Corpuscular Volume 97.9 FL (87-102); Mean Platelet Volume 11.4 FL (9.6-12.0); Monocytes % 6.9 % (1.7-12.7); NRBC # 0.03 10*3/uL; Platelet Count 160 T/CUMM (130-400); Red Blood Count 3.35 MC/CUMM (3.8-5.5); Red Cell Distribution Width 18.6 % (9.3-17.3)
[2019-08-28 06:39] LABS: Calcium 8.1 MG/DL (8.5-10.1); Osmolality,Calculated 286.7 MOS/KG (273-304)
[2019-08-28] MEDS: DORNASE ALFA 2.5 MG/2.5 ML VIAL RESP TX SCH ×2 (07:14→19:03)
[2019-08-28] MEDS: ASCORBIC ACID 500 MG TABLET NG SCH ×2 (08:09→21:28)
[2019-08-28] MEDS: MIDODRINE 5 MG TABLET PO SCH ×3 (08:09→21:29)
[2019-08-28] MEDS: POLYETHYLENE GLYCOL POWDER 17 GM PACK PO SCH (08:09)
[2019-08-28] MEDS: DOCUSATE SODIUM 100 MG/10 ML UDCUP PO SCH ×2 (08:09→21:28)
[2019-08-28] MEDS: predniSONE 5 MG TABLET PO SCH (08:09)
[2019-08-28] MEDS: AMIODARONE 200 MG TABLET PO SCH ×2 (08:09→21:29)
[2019-08-28] MEDS: MUPIROCIN 2% OINT 22 GM TUBE TOP SCH ×2 (08:10→21:28)
[2019-08-28] MEDS: ASPIRIN CHEW 81 MG TABLET PO SCH (08:10)
[2019-08-28] MEDS: CHLORHEXIDINE 0.12% ORAL RINSE 60 ML BOTTLE SWISH/SPIT SCH ×2 (08:10→21:28)
[2019-08-28] MEDS: VITAMIN B12 5000 MCG PO SCH (08:10)
[2019-08-28] MEDS: FUROSEMIDE 20 MG/2 ML VIAL IV SCH ×2 (08:23→17:03)
[2019-08-28] MEDS: PANTOPRAZOLE 40 MG VIAL IV SCH (08:24)
[2019-08-28] MEDS: MICAFUNGIN 50 MG, MICAFUNGIN 100 MG in SODIUM CHLORIDE 0.9% 100 ML IV SCH (14:30)
[2019-08-28] MEDS: ATORVASTATIN 20 MG TABLET PO SCH (21:29)
[2019-08-29] MEDS: CIPROFLOXACIN INJ 400 MG in PREMIX 1 EACH IV SCH ×2 (00:03→13:10)
[2019-08-29] MEDS: INSULIN REGULAR 100 UNIT/ML SUBCUT SCH ×4 (00:04→17:49)
[2019-08-29] MEDS: ALBUTEROL/IPRATROPIUM 3 ML NEB RESP TX SCH ×4 (00:24→20:19)
[2019-08-29 05:29] LABS: Basophils # 0.1 10*3/uL (0.0-0.2); Basophils % 0.3 % (0.0-0.8); Hematocrit 34.7 VOL% (42.0-52.0); Hemoglobin 10.4 GM/DL (14.0-18.0); Immature Granulocytes % 4.3 %; Immature Granulocytes Absolute 0.66 #; Lymphocytes # 1.8 10*3/uL (1.4-4.0); Mean Corpuscular Volume 97.5 FL (87-102); Mean Platelet Volume 11.4 FL (9.6-12.0); NRBC # 0.09 10*3/uL; Neutrophils % 75.4 % (38.7-73.9); Platelet Count 183 T/CUMM (130-400); Red Blood Count 3.56 MC/CUMM (3.8-5.5); Red Cell Distribution Width 18.1 % (9.3-17.3); White Blood Count 15.2 T/CUMM (4-12)
[2019-08-29 05:45] LABS: Calcium 8.1 MG/DL (8.5-10.1); Osmolality,Calculated 288.4 MOS/KG (273-304); Total Protein 5.7 G/DL (6.4-8.3)
[2019-08-29] MEDS: methylPREDNISolone SOD SUC 40 MG/1 ML VIAL IV SCH ×2 (06:08→18:35)
[2019-08-29 06:38] LABS: Band Neutrophils 1 % (0-10); Lymphocytes 10 % (20-55); Myelocytes 1 %; Segmented Neutrophils 84 % (50-85); Total Cells Counted 100
[2019-08-29 06:39] LABS: Hypochromasia Slight; Platelet Estimate Normal; Polychromasia Slight
[2019-08-29 06:40] LABS: Stomatocytes Slight; Target Cells Slight
[2019-08-29] MEDS: DORNASE ALFA 2.5 MG/2.5 ML VIAL RESP TX SCH ×2 (07:21→20:19)
[2019-08-29] MEDS: AMIODARONE 200 MG TABLET PO SCH ×2 (09:19→21:42)
[2019-08-29] MEDS: predniSONE 5 MG TABLET PO SCH (09:19)
[2019-08-29] MEDS: DOCUSATE SODIUM 100 MG/10 ML UDCUP PO SCH ×2 (09:19→21:42)
[2019-08-29] MEDS: ASCORBIC ACID 500 MG TABLET NG SCH ×2 (09:19→21:42)
[2019-08-29] MEDS: ASPIRIN CHEW 81 MG TABLET PO SCH (09:20)
[2019-08-29] MEDS: CHLORHEXIDINE 0.12% ORAL RINSE 60 ML BOTTLE SWISH/SPIT SCH ×2 (09:20→21:46)
[2019-08-29] MEDS: MUPIROCIN 2% OINT 22 GM TUBE TOP SCH ×2 (09:20→21:42)
[2019-08-29] MEDS: MIDODRINE 5 MG TABLET PO SCH ×3 (09:20→21:42)
[2019-08-29] MEDS: VITAMIN B12 5000 MCG PO SCH (09:20)
[2019-08-29] MEDS: FUROSEMIDE 20 MG/2 ML VIAL IV SCH ×2 (09:53→16:20)
[2019-08-29] MEDS: PANTOPRAZOLE 40 MG VIAL IV SCH (09:53)
[2019-08-29] MEDS: MICAFUNGIN 50 MG, MICAFUNGIN 100 MG in SODIUM CHLORIDE 0.9% 100 ML IV SCH (15:09)
[2019-08-29] MEDS: ATORVASTATIN 20 MG TABLET PO SCH (21:42)
[2019-08-30] MEDS: INSULIN REGULAR 100 UNIT/ML SUBCUT SCH ×4 (00:02→17:24)
[2019-08-30] MEDS: ALBUTEROL/IPRATROPIUM 3 ML NEB RESP TX SCH ×4 (00:23→20:19)
[2019-08-30] MEDS: CIPROFLOXACIN INJ 400 MG in PREMIX 1 EACH IV SCH ×2 (00:40→11:51)
[2019-08-30 05:45] LABS: Bilirubin,Total 0.6 MG/DL (0.2-1.0); Calcium 7.8 MG/DL (8.5-10.1); Osmolality,Calculated 285.5 MOS/KG (273-304); Total Protein 5.6 G/DL (6.4-8.3)
[2019-08-30] MEDS: methylPREDNISolone SOD SUC 40 MG/1 ML VIAL IV SCH ×2 (06:21→17:56)
[2019-08-30] MEDS: DORNASE ALFA 2.5 MG/2.5 ML VIAL RESP TX SCH ×2 (07:26→20:19)
[2019-08-30] MEDS: ASCORBIC ACID 500 MG TABLET NG SCH ×2 (09:33→21:35)
[2019-08-30] MEDS: predniSONE 5 MG TABLET PO SCH (09:34)
[2019-08-30] MEDS: ASPIRIN CHEW 81 MG TABLET PO SCH (09:34)
[2019-08-30] MEDS: DOCUSATE SODIUM 100 MG/10 ML UDCUP PO SCH ×2 (09:34→21:35)
[2019-08-30] MEDS: MIDODRINE 5 MG TABLET PO SCH ×3 (09:34→21:35)
[2019-08-30] MEDS: VITAMIN B12 5000 MCG PO SCH (09:34)
[2019-08-30] MEDS: AMIODARONE 200 MG TABLET PO SCH ×2 (09:34→21:36)
[2019-08-30] MEDS: CHLORHEXIDINE 0.12% ORAL RINSE 60 ML BOTTLE SWISH/SPIT SCH ×2 (09:34→21:36)
[2019-08-30] MEDS: PANTOPRAZOLE 40 MG VIAL IV SCH (09:34)
[2019-08-30] MEDS: FUROSEMIDE 20 MG/2 ML VIAL IV SCH ×2 (09:35→17:56)
[2019-08-30] MEDS: MUPIROCIN 2% OINT 22 GM TUBE TOP SCH ×2 (09:35→21:37)
[2019-08-30] MEDS: LACTOBACILLUS ACIDOPHILUS/BULGARICUS CAPLET PO SCH (11:50)
[2019-08-30] MEDS: MICAFUNGIN 50 MG, MICAFUNGIN 100 MG in SODIUM CHLORIDE 0.9% 100 ML IV SCH (14:45)
[2019-08-30] MEDS: ATORVASTATIN 20 MG TABLET PO SCH (21:35)
[2019-08-31] MEDS: ALBUTEROL/IPRATROPIUM 3 ML NEB RESP TX SCH ×4 (01:44→19:47)
[2019-08-31] MEDS: CIPROFLOXACIN INJ 400 MG in PREMIX 1 EACH IV SCH ×2 (01:45→12:01)
[2019-08-31] MEDS: INSULIN REGULAR 100 UNIT/ML SUBCUT SCH ×4 (01:53→18:28)
[2019-08-31 06:01] LABS: Basophils % 0.2 % (0.0-0.8); Eosinophils % 0.1 % (0.00-10.9); Hematocrit 36.8 VOL% (42.0-52.0); Hemoglobin 11.4 GM/DL (14.0-18.0); Immature Granulocytes % 2.8 %; Immature Granulocytes Absolute 0.49 #; Lymphocytes # 1.2 10*3/uL (1.4-4.0); Lymphocytes % 6.7 % (21.2-54.2); Mean Corpuscular Volume 97.1 FL (87-102); Mean Platelet Volume 11.4 FL (9.6-12.0); Monocytes % 5.2 % (1.7-12.7); NRBC # 0.08 10*3/uL; Platelet Count 231 T/CUMM (130-400); Red Blood Count 3.79 MC/CUMM (3.8-5.5); Red Cell Distribution Width 18.6 % (9.3-17.3); White Blood Count 17.3 T/CUMM (4-12)
[2019-08-31 06:18] LABS: Calcium 8.4 MG/DL (8.5-10.1)
[2019-08-31 06:22] LABS: Prealbumin 39.7 MG/DL (20-40)
[2019-08-31] MEDS: methylPREDNISolone SOD SUC 40 MG/1 ML VIAL IV SCH ×2 (06:37→18:25)
[2019-08-31] MEDS: DORNASE ALFA 2.5 MG/2.5 ML VIAL RESP TX SCH ×2 (07:31→19:57)
[2019-08-31] MEDS: DOCUSATE SODIUM 100 MG/10 ML UDCUP PO SCH ×2 (09:06→21:46)
[2019-08-31] MEDS: ASPIRIN CHEW 81 MG TABLET PO SCH (09:06)
[2019-08-31] MEDS: predniSONE 5 MG TABLET PO SCH (09:06)
[2019-08-31] MEDS: MIDODRINE 5 MG TABLET PO SCH ×3 (09:06→21:46)
[2019-08-31] MEDS: ASCORBIC ACID 500 MG TABLET NG SCH ×2 (09:06→21:46)
[2019-08-31] MEDS: FUROSEMIDE 20 MG/2 ML VIAL IV SCH ×2 (09:07→16:58)
[2019-08-31] MEDS: LACTOBACILLUS ACIDOPHILUS/BULGARICUS CAPLET PO SCH (09:07)
[2019-08-31] MEDS: AMIODARONE 200 MG TABLET PO SCH ×2 (09:07→21:46)
[2019-08-31] MEDS: CHLORHEXIDINE 0.12% ORAL RINSE 60 ML BOTTLE SWISH/SPIT SCH ×2 (09:07→21:48)
[2019-08-31] MEDS: VITAMIN B12 5000 MCG PO SCH (09:07)
[2019-08-31] MEDS: PANTOPRAZOLE 40 MG VIAL IV SCH (09:09)
[2019-08-31 10:41] LABS: Adenosine Deaminase Pleural Fl 2.1 U/L (0.0 - 9.4); Source PLEURAL FLUID
[2019-08-31] MEDS: MICAFUNGIN 50 MG, MICAFUNGIN 100 MG in SODIUM CHLORIDE 0.9% 100 ML IV SCH (13:08)
[2019-08-31] MEDS: MUPIROCIN 2% OINT 22 GM TUBE TOP SCH ×2 (16:34→21:47)
[2019-08-31] MEDS: ATORVASTATIN 20 MG TABLET PO SCH (21:46)
[2019-09-01] MEDS: ALBUTEROL/IPRATROPIUM 3 ML NEB RESP TX SCH ×4 (00:13→19:50)
[2019-09-01] MEDS: CIPROFLOXACIN INJ 400 MG in PREMIX 1 EACH IV SCH ×2 (01:14→13:08)
[2019-09-01] MEDS: INSULIN REGULAR 100 UNIT/ML SUBCUT SCH ×4 (01:24→18:57)
[2019-09-01 05:18] LABS: Basophils % 0.2 % (0.0-0.8); Hematocrit 36.5 VOL% (42.0-52.0); Immature Granulocytes Absolute 0.35 #; Lymphocytes # 0.9 10*3/uL (1.4-4.0); Lymphocytes % 4.9 % (21.2-54.2); Mean Corpuscular HGB Conc 30.1 GM/DL (32-36); Mean Corpuscular Volume 98.1 FL (87-102); Mean Platelet Volume 11.5 FL (9.6-12.0); Monocytes % 4.4 % (1.7-12.7); NRBC # 0.03 10*3/uL; Neutrophils % 88.5 % (38.7-73.9); Platelet Count 178 T/CUMM (130-400); Red Blood Count 3.72 MC/CUMM (3.8-5.5); Red Cell Distribution Width 18.5 % (9.3-17.3); White Blood Count 17.7 T/CUMM (4-12)
[2019-09-01 05:49] LABS: Lymphocytes 3 % (20-55); Osmolality,Calculated 287.5 MOS/KG (273-304); Segmented Neutrophils 94 % (50-85); Total Cells Counted 100
[2019-09-01 05:50] LABS: Hypochromasia Slight; Platelet Estimate Adequate
[2019-09-01] MEDS: methylPREDNISolone SOD SUC 40 MG/1 ML VIAL IV SCH ×2 (06:25→18:47)
[2019-09-01] MEDS: DORNASE ALFA 2.5 MG/2.5 ML VIAL RESP TX SCH (07:46)
[2019-09-01] MEDS: LACTOBACILLUS ACIDOPHILUS/BULGARICUS CAPLET PO SCH (09:14)
[2019-09-01] MEDS: AMIODARONE 200 MG TABLET PO SCH ×2 (09:14→21:44)
[2019-09-01] MEDS: DOCUSATE SODIUM 100 MG/10 ML UDCUP PO SCH ×2 (09:14→21:44)
[2019-09-01] MEDS: ASCORBIC ACID 500 MG TABLET NG SCH ×2 (09:14→21:44)
[2019-09-01] MEDS: predniSONE 5 MG TABLET PO SCH (09:15)
[2019-09-01] MEDS: FUROSEMIDE 20 MG/2 ML VIAL IV SCH ×2 (09:15→15:56)
[2019-09-01] MEDS: ASPIRIN CHEW 81 MG TABLET PO SCH (09:15)
[2019-09-01] MEDS: CHLORHEXIDINE 0.12% ORAL RINSE 60 ML BOTTLE SWISH/SPIT SCH ×2 (09:17→21:44)
[2019-09-01] MEDS: PANTOPRAZOLE 40 MG VIAL IV SCH (09:17)
[2019-09-01] MEDS: VITAMIN B12 5000 MCG PO SCH (09:17)
[2019-09-01] MEDS: MIDODRINE 5 MG TABLET PO SCH ×3 (09:19→21:44)
[2019-09-01] MEDS: MICAFUNGIN 50 MG, MICAFUNGIN 100 MG in SODIUM CHLORIDE 0.9% 100 ML IV SCH (14:53)
[2019-09-01] MEDS: MUPIROCIN 2% OINT 22 GM TUBE TOP SCH ×2 (15:20→21:44)
[2019-09-01] MEDS: ATORVASTATIN 20 MG TABLET PO SCH (21:44)
[2019-09-02] MEDS: INSULIN REGULAR 100 UNIT/ML SUBCUT SCH ×4 (00:32→17:04)
[2019-09-02] MEDS: CIPROFLOXACIN INJ 400 MG in PREMIX 1 EACH IV SCH ×2 (00:37→11:23)
[2019-09-02] MEDS: ALBUTEROL/IPRATROPIUM 3 ML NEB RESP TX SCH ×4 (01:20→19:43)
[2019-09-02 04:37] LABS: Basophils % 0.1 % (0.0-0.8); Hematocrit 35.2 VOL% (42.0-52.0); Hemoglobin 10.9 GM/DL (14.0-18.0); Immature Granulocytes Absolute 0.31 #; Lymphocytes # 0.7 10*3/uL (1.4-4.0); Lymphocytes % 4.7 % (21.2-54.2); Mean Corpuscular Volume 96.4 FL (87-102); Mean Platelet Volume 11.1 FL (9.6-12.0); Monocytes % 5.1 % (1.7-12.7); Neutrophils % 88.1 % (38.7-73.9); Platelet Count 185 T/CUMM (130-400); Red Blood Count 3.65 MC/CUMM (3.8-5.5); Red Cell Distribution Width 18.5 % (9.3-17.3); White Blood Count 15.7 T/CUMM (4-12)
[2019-09-02 04:58] LABS: Hypochromasia 1+; Lymphocytes 8 % (20-55); Platelet Estimate Adequate; Segmented Neutrophils 89 % (50-85); Total Cells Counted 100
[2019-09-02 05:13] LABS: Calcium 7.9 MG/DL (8.5-10.1); Osmolality,Calculated 287.4 MOS/KG (273-304)
[2019-09-02] MEDS: methylPREDNISolone SOD SUC 40 MG/1 ML VIAL IV SCH ×2 (07:14→17:03)
[2019-09-02] MEDS: PANTOPRAZOLE 40 MG VIAL IV SCH (08:33)
[2019-09-02] MEDS: LACTOBACILLUS ACIDOPHILUS/BULGARICUS CAPLET PO SCH (08:34)
[2019-09-02] MEDS: AMIODARONE 200 MG TABLET PO SCH ×2 (08:34→20:54)
[2019-09-02] MEDS: FUROSEMIDE 20 MG/2 ML VIAL IV SCH ×2 (08:34→15:50)
[2019-09-02] MEDS: ASCORBIC ACID 500 MG TABLET NG SCH ×2 (08:34→20:54)
[2019-09-02] MEDS: ASPIRIN CHEW 81 MG TABLET PO SCH (08:34)
[2019-09-02] MEDS: MIDODRINE 5 MG TABLET PO SCH ×3 (08:34→20:54)
[2019-09-02] MEDS: DOCUSATE SODIUM 100 MG/10 ML UDCUP PO SCH ×2 (08:34→20:54)
[2019-09-02] MEDS: predniSONE 5 MG TABLET PO SCH (08:35)
[2019-09-02] MEDS: CHLORHEXIDINE 0.12% ORAL RINSE 60 ML BOTTLE SWISH/SPIT SCH ×2 (08:35→20:55)
[2019-09-02] MEDS: MUPIROCIN 2% OINT 22 GM TUBE TOP SCH (08:35)
[2019-09-02] MEDS: VITAMIN B12 5000 MCG PO SCH (08:35)
[2019-09-02] MEDS ORDERED: AMIODARONE INJ 150 MG in DEXTROSE 5% 100 ML IV ONE (12:40)
[2019-09-02] MEDS: MICAFUNGIN 50 MG, MICAFUNGIN 100 MG in SODIUM CHLORIDE 0.9% 100 ML IV SCH (12:51)
[2019-09-02] MEDS: ATORVASTATIN 20 MG TABLET PO SCH (20:54)
[2019-09-02] MEDS: APIXABAN 2.5 MG TABLET PO SCH (20:54)
[2019-09-03] MEDS: INSULIN REGULAR 100 UNIT/ML SUBCUT SCH ×4 (00:16→17:02)
[2019-09-03] MEDS: CIPROFLOXACIN INJ 400 MG in PREMIX 1 EACH IV SCH ×2 (00:17→11:37)
[2019-09-03] MEDS: ALBUTEROL/IPRATROPIUM 3 ML NEB RESP TX SCH ×4 (01:00→19:40)
[2019-09-03] MEDS: MUPIROCIN 2% OINT 22 GM TUBE TOP SCH ×3 (02:19→20:24)
[2019-09-03 05:51] LABS: Basophils % 0.2 % (0.0-0.8); Hematocrit 34.4 VOL% (42.0-52.0); Hemoglobin 10.5 GM/DL (14.0-18.0); Immature Granulocytes % 3.5 %; Immature Granulocytes Absolute 0.56 #; Lymphocytes # 0.9 10*3/uL (1.4-4.0); Lymphocytes % 5.3 % (21.2-54.2); Mean Corpuscular HGB Conc 30.5 GM/DL (32-36); Mean Corpuscular Volume 97.7 FL (87-102); Mean Platelet Volume 11.4 FL (9.6-12.0); Monocytes % 6.3 % (1.7-12.7); NRBC # 0.03 10*3/uL; Neutrophils % 84.7 % (38.7-73.9); Platelet Count 188 T/CUMM (130-400); Red Blood Count 3.52 MC/CUMM (3.8-5.5); Red Cell Distribution Width 18.6 % (9.3-17.3); White Blood Count 16.1 T/CUMM (4-12)
[2019-09-03 06:06] LABS: Calcium 8.2 MG/DL (8.5-10.1); Osmolality,Calculated 288.5 MOS/KG (273-304)
[2019-09-03 06:10] LABS: Prealbumin 20.8 MG/DL (20-40)
[2019-09-03] MEDS: methylPREDNISolone SOD SUC 40 MG/1 ML VIAL IV SCH ×2 (06:24→17:07)
[2019-09-03 06:28] LABS: Band Neutrophils 3 % (0-10); Hypochromasia 1+; Lymphocytes 9 % (20-55); Myelocytes 1 %; Platelet Estimate Adequate; Segmented Neutrophils 80 % (50-85); Total Cells Counted 100
[2019-09-03] MEDS: FUROSEMIDE 20 MG/2 ML VIAL IV SCH ×2 (07:57→15:31)
[2019-09-03] MEDS: DOCUSATE SODIUM 100 MG/10 ML UDCUP PO SCH ×2 (08:00→20:24)
[2019-09-03] MEDS: ASCORBIC ACID 500 MG TABLET NG SCH ×2 (08:00→20:23)
[2019-09-03] MEDS: PANTOPRAZOLE 40 MG VIAL IV SCH (08:00)
[2019-09-03] MEDS: LACTOBACILLUS ACIDOPHILUS/BULGARICUS CAPLET PO SCH (08:00)
[2019-09-03] MEDS: predniSONE 5 MG TABLET PO SCH (08:00)
[2019-09-03] MEDS: MIDODRINE 5 MG TABLET PO SCH ×3 (08:00→20:23)
[2019-09-03] MEDS: AMIODARONE 200 MG TABLET PO SCH ×2 (08:00→20:24)
[2019-09-03] MEDS: ASPIRIN CHEW 81 MG TABLET PO SCH (08:00)
[2019-09-03] MEDS: APIXABAN 2.5 MG TABLET PO SCH ×2 (08:00→20:23)
[2019-09-03] MEDS: CHLORHEXIDINE 0.12% ORAL RINSE 60 ML BOTTLE SWISH/SPIT SCH ×2 (08:01→20:24)
[2019-09-03] MEDS: VITAMIN B12 5000 MCG PO SCH (08:01)
[2019-09-03] MEDS: ATORVASTATIN 20 MG TABLET PO SCH (20:23)
[2019-09-04] MEDS: INSULIN REGULAR 100 UNIT/ML SUBCUT SCH ×4 (00:10→19:56)
[2019-09-04] MEDS: ALBUTEROL/IPRATROPIUM 3 ML NEB RESP TX SCH ×4 (00:50→19:32)
[2019-09-04 04:23] LABS: Calcium 7.9 MG/DL (8.5-10.1); Osmolality,Calculated 283.8 MOS/KG (273-304)
[2019-09-04 04:33] LABS: Basophils # 0.1 10*3/uL (0.0-0.2); Basophils % 0.4 % (0.0-0.8); Hematocrit 33.6 VOL% (42.0-52.0); Hemoglobin 10.2 GM/DL (14.0-18.0); Immature Granulocytes % 5.7 %; Immature Granulocytes Absolute 1.06 #; Lymphocytes # 0.9 10*3/uL (1.4-4.0); Lymphocytes % 4.8 % (21.2-54.2); Mean Corpuscular HGB Conc 30.4 GM/DL (32-36); Mean Corpuscular Volume 97.1 FL (87-102); Mean Platelet Volume 11.5 FL (9.6-12.0); NRBC # 0.04 10*3/uL; Neutrophils % 82.1 % (38.7-73.9); Platelet Count 213 T/CUMM (130-400); Red Blood Count 3.46 MC/CUMM (3.8-5.5); Red Cell Distribution Width 18.6 % (9.3-17.3); White Blood Count 18.5 T/CUMM (4-12)
[2019-09-04 05:13] LABS: Hypochromasia 1+; Lymphocytes 2 % (20-55); Myelocytes 1 %; Nucleated Red Blood Cells 2 (0-5); Segmented Neutrophils 88 % (50-85); Total Cells Counted 100
[2019-09-04 05:14] LABS: Acanthocytes Few; Anisocytosis 1+; Microcytosis 1+; Ovalocytes Slight
[2019-09-04 05:15] LABS: Platelet Estimate Normal
[2019-09-04] MEDS: methylPREDNISolone SOD SUC 40 MG/1 ML VIAL IV SCH (06:40)
[2019-09-04] MEDS: PANTOPRAZOLE 40 MG VIAL IV SCH (08:25)
[2019-09-04] MEDS: FUROSEMIDE 20 MG/2 ML VIAL IV SCH (08:25)
[2019-09-04] MEDS: FUROSEMIDE 40 MG TABLET PO SCH (09:45)
[2019-09-04] MEDS: DOCUSATE SODIUM 100 MG/10 ML UDCUP PO SCH ×2 (09:45→20:05)
[2019-09-04] MEDS: LACTOBACILLUS ACIDOPHILUS/BULGARICUS CAPLET PO SCH (09:45)
[2019-09-04] MEDS: AMIODARONE 200 MG TABLET PO SCH ×2 (09:45→20:05)
[2019-09-04] MEDS: VITAMIN B12 5000 MCG PO SCH (09:45)
[2019-09-04] MEDS: APIXABAN 2.5 MG TABLET PO SCH ×2 (09:45→20:05)
[2019-09-04] MEDS: predniSONE 5 MG TABLET PO SCH (09:45)
[2019-09-04] MEDS: ASPIRIN CHEW 81 MG TABLET PO SCH (09:45)
[2019-09-04] MEDS: ASCORBIC ACID 500 MG TABLET NG SCH ×2 (09:45→20:05)
[2019-09-04] MEDS: MIDODRINE 5 MG TABLET PO SCH ×3 (09:45→20:05)
[2019-09-04] MEDS: CHLORHEXIDINE 0.12% ORAL RINSE 60 ML BOTTLE SWISH/SPIT SCH ×2 (09:45→20:05)
[2019-09-04] MEDS: MUPIROCIN 2% OINT 22 GM TUBE TOP SCH ×2 (13:15→20:05)
[2019-09-04] MEDS: ATORVASTATIN 20 MG TABLET PO SCH (20:05)
[2019-09-04] MEDS ORDERED: AMIODARONE INJ 150 MG in DEXTROSE 5% 100 ML IV ONE (20:34)
[2019-09-04] MEDS ORDERED: AMIODARONE INJ 450 MG in DEXTROSE 5% 241 ML IV SCH (21:00)
[2019-09-05] MEDS: INSULIN REGULAR 100 UNIT/ML SUBCUT SCH ×5 (00:37→20:16)
[2019-09-05] MEDS: ALBUTEROL/IPRATROPIUM 3 ML NEB RESP TX SCH ×4 (01:20→18:44)
[2019-09-05] MEDS: AMIODARONE INJ 450 MG in DEXTROSE 5% 241 ML IV SCH ×2 (03:09→19:50)
[2019-09-05 05:40] LABS: Basophils # 0.1 10*3/uL (0.0-0.2); Basophils % 0.4 % (0.0-0.8); Eosinophils % 0.1 % (0.00-10.9); Hematocrit 33.6 VOL% (42.0-52.0); Hemoglobin 10.2 GM/DL (14.0-18.0); Immature Granulocytes % 8.4 %; Immature Granulocytes Absolute 1.86 #; Lymphocytes % 9.1 % (21.2-54.2); Mean Corpuscular HGB Conc 30.4 GM/DL (32-36); Mean Corpuscular Volume 98.2 FL (87-102); Mean Platelet Volume 11.4 FL (9.6-12.0); Monocytes % 6.8 % (1.7-12.7); NRBC # 0.12 10*3/uL; Neutrophils % 75.2 % (38.7-73.9); Platelet Count 206 T/CUMM (130-400); Red Blood Count 3.42 MC/CUMM (3.8-5.5); Red Cell Distribution Width 18.4 % (9.3-17.3); White Blood Count 22.3 T/CUMM (4-12)
[2019-09-05 05:52] LABS: Albumin 1.9 G/DL (3.4-5.0); Calcium 7.9 MG/DL (8.5-10.1); Osmolality,Calculated 288.3 MOS/KG (273-304); Total Protein 5.4 G/DL (6.4-8.3)
[2019-09-05 06:37] LABS: Band Neutrophils 2 % (0-10); Lymphocytes 10 % (20-55); Metamyelocytes 1 %; Nucleated Red Blood Cells 2 (0-5); Platelet Estimate Normal; Segmented Neutrophils 80 % (50-85); Total Cells Counted 100
[2019-09-05 06:38] LABS: Anisocytosis 2+; Macrocytosis 1+; Microcytosis 1+
[2019-09-05] MEDS: MUPIROCIN 2% OINT 22 GM TUBE TOP SCH ×2 (07:50→20:16)
[2019-09-05] MEDS: DOCUSATE SODIUM 100 MG/10 ML UDCUP PO SCH ×2 (09:00→20:17)
[2019-09-05] MEDS: MIDODRINE 5 MG TABLET PO SCH ×3 (09:30→20:15)
[2019-09-05] MEDS: LACTOBACILLUS ACIDOPHILUS/BULGARICUS CAPLET PO SCH (09:30)
[2019-09-05] MEDS: APIXABAN 2.5 MG TABLET PO SCH ×2 (09:30→20:16)
[2019-09-05] MEDS: FUROSEMIDE 40 MG TABLET PO SCH (09:30)
[2019-09-05] MEDS: VITAMIN B12 5000 MCG PO SCH (09:30)
[2019-09-05] MEDS: predniSONE 5 MG TABLET PO SCH (09:30)
[2019-09-05] MEDS: ASCORBIC ACID 500 MG TABLET NG SCH ×2 (09:30→20:16)
[2019-09-05] MEDS: ASPIRIN CHEW 81 MG TABLET PO SCH (09:30)
[2019-09-05] MEDS: PANTOPRAZOLE 40 MG VIAL IV SCH (09:40)
[2019-09-05] MEDS: CHLORHEXIDINE 0.12% ORAL RINSE 60 ML BOTTLE SWISH/SPIT SCH ×2 (09:45→20:17)
[2019-09-05] MEDS: ATORVASTATIN 20 MG TABLET PO SCH (20:16)
[2019-09-06] MEDS: ALBUTEROL/IPRATROPIUM 3 ML NEB RESP TX SCH ×4 (01:04→19:43)
[2019-09-06 04:34] LABS: Basophils # 0.1 10*3/uL (0.0-0.2); Basophils % 0.5 % (0.0-0.8); Eosinophils # 0.1 10*3/uL (0.0-0.87); Eosinophils % 0.3 % (0.00-10.9); Hematocrit 32.7 VOL% (42.0-52.0); Hemoglobin 9.9 GM/DL (14.0-18.0); Immature Granulocytes % 9.9 %; Immature Granulocytes Absolute 2.23 #; Lymphocytes # 1.7 10*3/uL (1.4-4.0); Lymphocytes % 7.6 % (21.2-54.2); Mean Corpuscular HGB Conc 30.3 GM/DL (32-36); Mean Corpuscular Volume 96.7 FL (87-102); Mean Platelet Volume 11.1 FL (9.6-12.0); Monocytes % 6.1 % (1.7-12.7); NRBC # 0.27 10*3/uL; Neutrophils % 75.6 % (38.7-73.9); Platelet Count 194 T/CUMM (130-400); Red Blood Count 3.38 MC/CUMM (3.8-5.5); Red Cell Distribution Width 18.3 % (9.3-17.3); White Blood Count 22.5 T/CUMM (4-12)
[2019-09-06 04:58] LABS: Calcium 7.6 MG/DL (8.5-10.1); Osmolality,Calculated 286.3 MOS/KG (273-304)
[2019-09-06 05:11] LABS: Hypochromasia 1+; Lymphocytes 9 % (20-55); Microcytosis 1+; Nucleated Red Blood Cells 2 (0-5); Ovalocytes Slight; Platelet Estimate Adequate; Segmented Neutrophils 85 % (50-85); Total Cells Counted 100
[2019-09-06] MEDS: INSULIN REGULAR 100 UNIT/ML SUBCUT SCH ×4 (08:12→20:23)
[2019-09-06] MEDS: AMIODARONE INJ 450 MG in DEXTROSE 5% 241 ML IV SCH (08:13)
[2019-09-06] MEDS: predniSONE 5 MG TABLET PO SCH (08:33)
[2019-09-06] MEDS: FUROSEMIDE 40 MG TABLET PO SCH (08:34)
[2019-09-06] MEDS: MIDODRINE 5 MG TABLET PO SCH ×3 (08:34→20:22)
[2019-09-06] MEDS: ASCORBIC ACID 500 MG TABLET NG SCH ×2 (08:34→20:22)
[2019-09-06] MEDS: PANTOPRAZOLE 40 MG VIAL IV SCH (08:34)
[2019-09-06] MEDS: LACTOBACILLUS ACIDOPHILUS/BULGARICUS CAPLET PO SCH (08:34)
[2019-09-06] MEDS: APIXABAN 2.5 MG TABLET PO SCH ×2 (08:34→20:22)
[2019-09-06] MEDS: ASPIRIN CHEW 81 MG TABLET PO SCH (08:34)
[2019-09-06] MEDS: VITAMIN B12 5000 MCG PO SCH (08:34)
[2019-09-06] MEDS: CHLORHEXIDINE 0.12% ORAL RINSE 60 ML BOTTLE SWISH/SPIT SCH ×2 (08:35→20:55)
[2019-09-06] MEDS: MUPIROCIN 2% OINT 22 GM TUBE TOP SCH ×2 (08:35→20:23)
[2019-09-06] MEDS: DOCUSATE SODIUM 100 MG/10 ML UDCUP PO SCH ×2 (08:36→20:22)
[2019-09-06] MEDS: ATORVASTATIN 20 MG TABLET PO SCH (20:22)
[2019-09-06] MEDS: AMIODARONE 200 MG TABLET PO SCH (20:22)
[2019-09-07] MEDS: ALBUTEROL/IPRATROPIUM 3 ML NEB RESP TX SCH ×4 (01:35→19:25)
[2019-09-07 05:06] LABS: Basophils # 0.2 10*3/uL (0.0-0.2); Basophils % 0.7 % (0.0-0.8); Eosinophils # 0.1 10*3/uL (0.0-0.87); Eosinophils % 0.5 % (0.00-10.9); Hematocrit 35.2 VOL% (42.0-52.0); Hemoglobin 10.7 GM/DL (14.0-18.0); Immature Granulocytes % 9.9 %; Immature Granulocytes Absolute 2.15 #; Lymphocytes # 1.6 10*3/uL (1.4-4.0); Lymphocytes % 7.2 % (21.2-54.2); Mean Corpuscular HGB Conc 30.4 GM/DL (32-36); Mean Corpuscular Volume 98.9 FL (87-102); Mean Platelet Volume 12.1 FL (9.6-12.0); Monocytes % 5.5 % (1.7-12.7); NRBC # 0.26 10*3/uL; Neutrophils % 76.2 % (38.7-73.9); Platelet Count 183 T/CUMM (130-400); Red Blood Count 3.56 MC/CUMM (3.8-5.5); Red Cell Distribution Width 18.7 % (9.3-17.3); White Blood Count 21.7 T/CUMM (4-12)
[2019-09-07 05:23] LABS: Calcium 7.7 MG/DL (8.5-10.1); Osmolality,Calculated 289.3 MOS/KG (273-304)
[2019-09-07 05:34] LABS: Band Neutrophils 1 % (0-10); Hypochromasia 1+; Lymphocytes 7 % (20-55); Metamyelocytes 2 %; Myelocytes 1 %; Nucleated Red Blood Cells 2 (0-5); Segmented Neutrophils 86 % (50-85); Total Cells Counted 100
[2019-09-07 05:35] LABS: Acanthocytes Few; Microcytosis 1+; Ovalocytes Slight; Platelet Estimate Adequate; Polychromasia Slight
[2019-09-07] MEDS: INSULIN REGULAR 100 UNIT/ML SUBCUT SCH ×2 (09:29→12:11)
[2019-09-07] MEDS: MIDODRINE 5 MG TABLET PO SCH ×3 (11:06→21:12)
[2019-09-07] MEDS: AMIODARONE 200 MG TABLET PO SCH ×2 (11:07→21:11)
[2019-09-07] MEDS: ASCORBIC ACID 500 MG TABLET NG SCH ×2 (11:07→21:10)
[2019-09-07] MEDS: predniSONE 5 MG TABLET PO SCH (11:07)
[2019-09-07] MEDS: DOCUSATE SODIUM 100 MG/10 ML UDCUP PO SCH ×2 (11:07→21:10)
[2019-09-07] MEDS: LACTOBACILLUS ACIDOPHILUS/BULGARICUS CAPLET PO SCH (11:07)
[2019-09-07] MEDS: APIXABAN 2.5 MG TABLET PO SCH ×2 (11:07→21:10)
[2019-09-07] MEDS: CHLORHEXIDINE 0.12% ORAL RINSE 60 ML BOTTLE SWISH/SPIT SCH ×2 (11:08→21:11)
[2019-09-07] MEDS: ASPIRIN CHEW 81 MG TABLET PO SCH (11:08)
[2019-09-07] MEDS: MUPIROCIN 2% OINT 22 GM TUBE TOP SCH ×2 (11:09→21:08)
[2019-09-07] MEDS: PANTOPRAZOLE 40 MG VIAL IV SCH (11:09)
[2019-09-07] MEDS: VITAMIN B12 5000 MCG PO SCH (11:09)
[2019-09-07] MEDS ORDERED: MAGNESIUM SULF RIDER 2 GM in PREMIX 1 EACH IV PRN (16:25)
[2019-09-07] MEDS ORDERED: MAGNESIUM SULF RIDER 4 GM in PREMIX 1 EACH IV PRN (16:25)
[2019-09-07] MEDS ORDERED: KETOROLAC 30 MG/1 ML VIAL IV PRN (16:25)
[2019-09-07] MEDS ORDERED: GLUCAGON 1 MG VIAL IM PRN (16:25)
[2019-09-07] MEDS ORDERED: ALUMINUM/MAGNES/SIMETH MAX STR 30 ML UDCUP PO PRN (16:25)
[2019-09-07] MEDS ORDERED: DEXTROSE 10% 25 GM/250 ML BAG IV PRN (16:25)
[2019-09-07] MEDS ORDERED: MAGNESIUM HYDROXIDE SUSP 30 ML UDCUP PO PRN (16:25)
[2019-09-07] MEDS ORDERED: ACETAMINOPHEN 325 MG TABLET PO PRN (16:25)
[2019-09-07] MEDS ORDERED: SODIUM CHLOR 0.45% KCL 20 MEQ 20 MEQ/1,000 ML BAG IV SCH (16:25)
[2019-09-07] MEDS ORDERED: APIXABAN 2.5 MG TABLET PO SCH (21:00)
[2019-09-07] MEDS ORDERED: CHLORHEXIDINE 0.12% ORAL RINSE 60 ML BOTTLE SWISH/SPIT SCH (21:00)
[2019-09-07] MEDS: ATORVASTATIN 20 MG TABLET PO SCH (21:10)
[2019-09-08] MEDS: ALBUTEROL/IPRATROPIUM 3 ML NEB RESP TX SCH ×4 (00:27→21:43)
[2019-09-08 05:00] LABS: Basophils # 0.1 10*3/uL (0.0-0.2); Basophils % 0.4 % (0.0-0.8); Eosinophils # 0.1 10*3/uL (0.0-0.87); Eosinophils % 0.3 % (0.00-10.9); Hematocrit 34.6 VOL% (42.0-52.0); Hemoglobin 10.4 GM/DL (14.0-18.0); Immature Granulocytes % 7.1 %; Immature Granulocytes Absolute 1.47 #; Lymphocytes # 1.6 10*3/uL (1.4-4.0); Mean Corpuscular HGB Conc 30.1 GM/DL (32-36); Mean Corpuscular Volume 97.7 FL (87-102); Mean Platelet Volume 11.6 FL (9.6-12.0); Monocytes % 5.1 % (1.7-12.7); NRBC # 0.12 10*3/uL; Neutrophils % 79.1 % (38.7-73.9); Platelet Count 176 T/CUMM (130-400); Red Blood Count 3.54 MC/CUMM (3.8-5.5); Red Cell Distribution Width 18.6 % (9.3-17.3); White Blood Count 20.6 T/CUMM (4-12)
[2019-09-08 05:33] LABS: Hypochromasia 1+; Lymphocytes 7 % (20-55); Platelet Estimate Adequate; Segmented Neutrophils 86 % (50-85); Total Cells Counted 100
[2019-09-08 05:34] LABS: Microcytosis 1+
[2019-09-08 06:55] LABS: Alanine Aminotransferase 95 U/L (16-61); Albumin 1.8 G/DL (3.4-5.0); Alkaline Phosphatase 100 U/L (45-117); Aspartate Amino Transferase 44 U/L (0-37); Bilirubin,Indirect 0.3 MG/DL (0.0-1.0); Bilirubin,Total < 0.39 MG/DL (0.2-1.0); Blood Urea Nitrogen 24 MG/DL (7-18); Calcium 8.1 MG/DL (8.5-10.1); Estimated Glom Filtration Rate 94 ML/MIN; Glucose 105 MG/DL (74-106); Osmolality,Calculated 273.1 MOS/KG (273-304); Total Protein 5.4 G/DL (6.4-8.3)
[2019-09-08] MEDS: CHLORHEXIDINE 0.12% ORAL RINSE 60 ML BOTTLE SWISH/SPIT SCH ×2 (09:38→22:13)
[2019-09-08] MEDS: MUPIROCIN 2% OINT 22 GM TUBE TOP SCH ×2 (09:39→22:13)
[2019-09-08] MEDS: DOCUSATE SODIUM 100 MG/10 ML UDCUP PO SCH ×2 (09:39→22:11)
[2019-09-08] MEDS: ASPIRIN CHEW 81 MG TABLET PO SCH (09:39)
[2019-09-08] MEDS: AMIODARONE 200 MG TABLET PO SCH ×2 (09:39→22:10)
[2019-09-08] MEDS: FERROUS SULFATE 325 MG TABLET PO SCH (09:39)
[2019-09-08] MEDS: LACTOBACILLUS ACIDOPHILUS/BULGARICUS CAPLET PO SCH (09:39)
[2019-09-08] MEDS: MIDODRINE 5 MG TABLET PO SCH ×3 (09:40→22:10)
[2019-09-08] MEDS: predniSONE 5 MG TABLET PO SCH (09:40)
[2019-09-08] MEDS: ASCORBIC ACID 500 MG TABLET NG SCH ×2 (09:40→22:12)
[2019-09-08] MEDS: PANTOPRAZOLE 40 MG TABLET PO SCH (09:40)
[2019-09-08] MEDS: APIXABAN 2.5 MG TABLET PO SCH ×2 (09:40→22:11)
[2019-09-08] MEDS: VITAMIN B12 5000 MCG PO SCH (09:56)
[2019-09-08] MEDS: ATORVASTATIN 20 MG TABLET PO SCH (22:12)
[2019-09-09] MEDS: ALBUTEROL/IPRATROPIUM 3 ML NEB RESP TX SCH ×4 (01:43→19:44)
[2019-09-09 06:46] LABS: Alanine Aminotransferase 93 U/L (16-61); Albumin 1.6 G/DL (3.4-5.0); Alkaline Phosphatase 97 U/L (45-117); Aspartate Amino Transferase 40 U/L (0-37); Bilirubin,Direct < 0.100 MG/DL (0.0-0.20); Bilirubin,Indirect 0.3 MG/DL (0.0-1.0); Bilirubin,Total < 0.39 MG/DL (0.2-1.0); Blood Urea Nitrogen 18 MG/DL (7-18); Calcium 7.9 MG/DL (8.5-10.1); Estimated Glom Filtration Rate 103 ML/MIN; Glucose 74 MG/DL (74-106); Osmolality,Calculated 279.4 MOS/KG (273-304); Total Protein 5.2 G/DL (6.4-8.3)
[2019-09-09] MEDS: PANTOPRAZOLE 40 MG TABLET PO SCH (08:56)
[2019-09-09] MEDS: ASCORBIC ACID 500 MG TABLET NG SCH ×2 (08:56→21:48)
[2019-09-09] MEDS: ASPIRIN CHEW 81 MG TABLET PO SCH (08:56)
[2019-09-09] MEDS: LACTOBACILLUS ACIDOPHILUS/BULGARICUS CAPLET PO SCH (08:56)
[2019-09-09] MEDS: AMIODARONE 200 MG TABLET PO SCH ×2 (08:56→21:48)
[2019-09-09] MEDS: MIDODRINE 5 MG TABLET PO SCH ×3 (08:56→21:48)
[2019-09-09] MEDS: APIXABAN 2.5 MG TABLET PO SCH ×2 (08:56→21:48)
[2019-09-09] MEDS: FERROUS SULFATE 325 MG TABLET PO SCH (08:56)
[2019-09-09] MEDS: DOCUSATE SODIUM 100 MG/10 ML UDCUP PO SCH ×2 (08:56→21:48)
[2019-09-09] MEDS: CHLORHEXIDINE 0.12% ORAL RINSE 60 ML BOTTLE SWISH/SPIT SCH ×2 (08:57→21:48)
[2019-09-09] MEDS: predniSONE 5 MG TABLET PO SCH (08:57)
[2019-09-09] MEDS: VITAMIN B12 5000 MCG PO SCH (08:57)
[2019-09-09] MEDS: MUPIROCIN 2% OINT 22 GM TUBE TOP SCH ×2 (08:57→21:46)
[2019-09-09] MEDS: ATORVASTATIN 20 MG TABLET PO SCH (21:48)
[2019-09-10] MEDS: ALBUTEROL/IPRATROPIUM 3 ML NEB RESP TX SCH ×4 (01:01→20:27)
[2019-09-10] MEDS: APIXABAN 2.5 MG TABLET PO SCH ×2 (09:16→21:28)
[2019-09-10] MEDS: MUPIROCIN 2% OINT 22 GM TUBE TOP SCH ×2 (09:16→21:28)
[2019-09-10] MEDS: DOCUSATE SODIUM 100 MG/10 ML UDCUP PO SCH ×2 (09:16→21:28)
[2019-09-10] MEDS: CHLORHEXIDINE 0.12% ORAL RINSE 60 ML BOTTLE SWISH/SPIT SCH ×2 (09:16→21:28)
[2019-09-10] MEDS: VITAMIN B12 5000 MCG PO SCH (09:16)
[2019-09-10] MEDS: LACTOBACILLUS ACIDOPHILUS/BULGARICUS CAPLET PO SCH (09:16)
[2019-09-10] MEDS: AMIODARONE 200 MG TABLET PO SCH ×2 (09:17→21:28)
[2019-09-10] MEDS: predniSONE 5 MG TABLET PO SCH (09:17)
[2019-09-10] MEDS: ASCORBIC ACID 500 MG TABLET NG SCH ×2 (09:17→21:28)
[2019-09-10] MEDS: FERROUS SULFATE 325 MG TABLET PO SCH (09:17)
[2019-09-10] MEDS: ASPIRIN CHEW 81 MG TABLET PO SCH (09:17)
[2019-09-10] MEDS: PANTOPRAZOLE 40 MG TABLET PO SCH (09:17)
[2019-09-10] MEDS: MIDODRINE 5 MG TABLET PO SCH ×3 (09:17→21:28)
[2019-09-10] MEDS: ATORVASTATIN 20 MG TABLET PO SCH (21:28)
[2019-09-11] MEDS: ALBUTEROL/IPRATROPIUM 3 ML NEB RESP TX SCH ×4 (03:28→21:23)
[2019-09-11 05:05] LABS: Basophils % 0.2 % (0.0-0.8); Eosinophils # 0.1 10*3/uL (0.0-0.87); Eosinophils % 0.5 % (0.00-10.9); Hematocrit 34.1 VOL% (42.0-52.0); Hemoglobin 10.1 GM/DL (14.0-18.0); Immature Granulocytes % 2.1 %; Lymphocytes # 1.7 10*3/uL (1.4-4.0); Lymphocytes % 8.9 % (21.2-54.2); Mean Corpuscular HGB Conc 29.6 GM/DL (32-36); Mean Corpuscular Volume 99.1 FL (87-102); Mean Platelet Volume 11.2 FL (9.6-12.0); Monocytes % 4.4 % (1.7-12.7); NRBC # 0.03 10*3/uL; Neutrophils % 83.9 % (38.7-73.9); Platelet Count 136 T/CUMM (130-400); Red Blood Count 3.44 MC/CUMM (3.8-5.5); Red Cell Distribution Width 18.6 % (9.3-17.3); White Blood Count 19.3 T/CUMM (4-12)
[2019-09-11 05:36] LABS: Albumin 1.8 G/DL (3.4-5.0); Bilirubin,Direct 0.14 MG/DL (0.0-0.20); Bilirubin,Indirect 0.5 MG/DL (0.0-1.0); Bilirubin,Total 0.6 MG/DL (0.2-1.0); Calcium 8.1 MG/DL (8.5-10.1); Osmolality,Calculated 272.8 MOS/KG (273-304); Total Protein 5.5 G/DL (6.4-8.3)
[2019-09-11] MEDS: predniSONE 5 MG TABLET PO SCH (09:38)
[2019-09-11] MEDS: MIDODRINE 5 MG TABLET PO SCH ×3 (09:39→20:21)
[2019-09-11] MEDS: AMIODARONE 200 MG TABLET PO SCH ×2 (09:39→20:21)
[2019-09-11] MEDS: PANTOPRAZOLE 40 MG TABLET PO SCH (09:39)
[2019-09-11] MEDS: DOCUSATE SODIUM 100 MG/10 ML UDCUP PO SCH ×2 (09:39→20:21)
[2019-09-11] MEDS: ASPIRIN CHEW 81 MG TABLET PO SCH (09:39)
[2019-09-11] MEDS: LACTOBACILLUS ACIDOPHILUS/BULGARICUS CAPLET PO SCH (09:39)
[2019-09-11] MEDS: CHLORHEXIDINE 0.12% ORAL RINSE 60 ML BOTTLE SWISH/SPIT SCH ×2 (09:41→20:21)
[2019-09-11] MEDS: APIXABAN 2.5 MG TABLET PO SCH ×2 (09:41→20:20)
[2019-09-11] MEDS: VITAMIN B12 5000 MCG PO SCH (09:41)
[2019-09-11] MEDS: MUPIROCIN 2% OINT 22 GM TUBE TOP SCH ×2 (09:41→20:21)
[2019-09-11] MEDS: FERROUS SULFATE 325 MG TABLET PO SCH (09:41)
[2019-09-11] MEDS: ASCORBIC ACID 500 MG TABLET NG SCH ×2 (09:41→20:20)
[2019-09-11] MEDS: ATORVASTATIN 20 MG TABLET PO SCH (20:20)
[2019-09-12] MEDS: ALBUTEROL/IPRATROPIUM 3 ML NEB RESP TX SCH ×4 (01:27→20:21)
[2019-09-12 06:22] LABS: Basophils % 0.1 % (0.0-0.8); Eosinophils # 0.1 10*3/uL (0.0-0.87); Eosinophils % 0.4 % (0.00-10.9); Immature Granulocytes % 1.4 %; Immature Granulocytes Absolute 0.24 #; Lymphocytes # 1.1 10*3/uL (1.4-4.0); Lymphocytes % 6.6 % (21.2-54.2); Mean Corpuscular HGB Conc 30.3 GM/DL (32-36); Mean Corpuscular Volume 96.2 FL (87-102); Mean Platelet Volume 11.3 FL (9.6-12.0); Monocytes % 3.4 % (1.7-12.7); Neutrophils % 88.1 % (38.7-73.9); Platelet Count 130 T/CUMM (130-400); Red Blood Count 3.43 MC/CUMM (3.8-5.5); Red Cell Distribution Width 18.3 % (9.3-17.3); White Blood Count 16.6 T/CUMM (4-12)
[2019-09-12 06:39] LABS: Albumin 1.7 G/DL (3.4-5.0); Bilirubin,Direct 0.13 MG/DL (0.0-0.20); Bilirubin,Indirect 0.5 MG/DL (0.0-1.0); Bilirubin,Total 0.6 MG/DL (0.2-1.0); Calcium 8.1 MG/DL (8.5-10.1); Osmolality,Calculated 271.8 MOS/KG (273-304); Total Protein 5.5 G/DL (6.4-8.3)
[2019-09-12] MEDS: DOCUSATE SODIUM 100 MG/10 ML UDCUP PO SCH ×2 (09:42→20:38)
[2019-09-12] MEDS: ASCORBIC ACID 500 MG TABLET NG SCH ×2 (09:43→20:37)
[2019-09-12] MEDS: predniSONE 5 MG TABLET PO SCH (09:43)
[2019-09-12] MEDS: LACTOBACILLUS ACIDOPHILUS/BULGARICUS CAPLET PO SCH (09:43)
[2019-09-12] MEDS: AMIODARONE 200 MG TABLET PO SCH ×2 (09:43→20:37)
[2019-09-12] MEDS: MIDODRINE 5 MG TABLET PO SCH ×3 (09:44→20:37)
[2019-09-12] MEDS: MUPIROCIN 2% OINT 22 GM TUBE TOP SCH ×2 (09:44→20:37)
[2019-09-12] MEDS: APIXABAN 2.5 MG TABLET PO SCH ×2 (09:44→20:37)
[2019-09-12] MEDS: PANTOPRAZOLE 40 MG TABLET PO SCH (09:44)
[2019-09-12] MEDS: ASPIRIN CHEW 81 MG TABLET PO SCH (09:44)
[2019-09-12] MEDS: FERROUS SULFATE 325 MG TABLET PO SCH (09:44)
[2019-09-12] MEDS: CHLORHEXIDINE 0.12% ORAL RINSE 60 ML BOTTLE SWISH/SPIT SCH ×2 (09:45→20:38)
[2019-09-12] MEDS: VITAMIN B12 5000 MCG PO SCH (09:46)
[2019-09-12] MEDS: TAMSULOSIN 0.4 MG CAPSULE PO SCH (10:52)
[2019-09-12] MEDS: ATORVASTATIN 20 MG TABLET PO SCH (20:37)
[2019-09-13] MEDS: ALBUTEROL/IPRATROPIUM 3 ML NEB RESP TX SCH ×4 (01:56→20:35)
[2019-09-13 06:01] LABS: Basophils % 0.2 % (0.0-0.8); Eosinophils % 0.3 % (0.00-10.9); Hematocrit 32.5 VOL% (42.0-52.0); Hemoglobin 9.9 GM/DL (14.0-18.0); Immature Granulocytes % 1.2 %; Immature Granulocytes Absolute 0.19 #; Lymphocytes % 6.3 % (21.2-54.2); Mean Corpuscular HGB Conc 30.5 GM/DL (32-36); Mean Corpuscular Volume 97.6 FL (87-102); Mean Platelet Volume 10.9 FL (9.6-12.0); Platelet Count 126 T/CUMM (130-400); Red Blood Count 3.33 MC/CUMM (3.8-5.5); Red Cell Distribution Width 18.1 % (9.3-17.3); White Blood Count 15.8 T/CUMM (4-12)
[2019-09-13 06:16] LABS: Calcium 7.8 MG/DL (8.5-10.1); Osmolality,Calculated 273.8 MOS/KG (273-304)
[2019-09-13] MEDS: POTASSIUM CHLORIDE 20 MEQ TABLET PO PRN (09:25)
[2019-09-13] MEDS: DOCUSATE SODIUM 100 MG/10 ML UDCUP PO SCH ×2 (09:25→20:25)
[2019-09-13] MEDS: ASPIRIN CHEW 81 MG TABLET PO SCH (09:26)
[2019-09-13] MEDS: FERROUS SULFATE 325 MG TABLET PO SCH (09:26)
[2019-09-13] MEDS: predniSONE 5 MG TABLET PO SCH (09:26)
[2019-09-13] MEDS: PANTOPRAZOLE 40 MG TABLET PO SCH (09:26)
[2019-09-13] MEDS: TAMSULOSIN 0.4 MG CAPSULE PO SCH (09:27)
[2019-09-13] MEDS: AMIODARONE 200 MG TABLET PO SCH ×2 (09:27→20:25)
[2019-09-13] MEDS: LACTOBACILLUS ACIDOPHILUS/BULGARICUS CAPLET PO SCH (09:27)
[2019-09-13] MEDS: MUPIROCIN 2% OINT 22 GM TUBE TOP SCH ×2 (09:27→20:26)
[2019-09-13] MEDS: MIDODRINE 5 MG TABLET PO SCH ×3 (09:27→20:25)
[2019-09-13] MEDS: ASCORBIC ACID 500 MG TABLET NG SCH ×2 (09:27→20:25)
[2019-09-13] MEDS: APIXABAN 2.5 MG TABLET PO SCH ×2 (09:27→20:25)
[2019-09-13] MEDS: CHLORHEXIDINE 0.12% ORAL RINSE 60 ML BOTTLE SWISH/SPIT SCH ×2 (09:28→20:24)
[2019-09-13] MEDS: VITAMIN B12 5000 MCG PO SCH (09:28)
[2019-09-13] MEDS ORDERED: OXYMETAZOLINE 0.05% NASAL SPRAY 15 ML BOTTLE BOTH NARES PRN (09:30)
[2019-09-13] MEDS: FLUTICASONE 50 MCG NASAL SPRAY 16 GM BOTTLE BOTH NARES SCH (11:53)
[2019-09-13] MEDS: ATORVASTATIN 20 MG TABLET PO SCH (20:25)
[2019-09-14] MEDS: ALBUTEROL/IPRATROPIUM 3 ML NEB RESP TX SCH ×4 (01:14→19:48)
[2019-09-14 05:15] LABS: Basophils % 0.1 % (0.0-0.8); Eosinophils # 0.1 10*3/uL (0.0-0.87); Eosinophils % 0.4 % (0.00-10.9); Hematocrit 31.5 VOL% (42.0-52.0); Hemoglobin 9.6 GM/DL (14.0-18.0); Immature Granulocytes % 1.2 %; Immature Granulocytes Absolute 0.21 #; Lymphocytes # 1.1 10*3/uL (1.4-4.0); Lymphocytes % 6.3 % (21.2-54.2); Mean Corpuscular HGB Conc 30.5 GM/DL (32-36); Mean Corpuscular Volume 97.8 FL (87-102); Mean Platelet Volume 10.7 FL (9.6-12.0); Monocytes % 3.6 % (1.7-12.7); Neutrophils % 88.4 % (38.7-73.9); Platelet Count 128 T/CUMM (130-400); Red Blood Count 3.22 MC/CUMM (3.8-5.5); Red Cell Distribution Width 18.1 % (9.3-17.3); White Blood Count 17.1 T/CUMM (4-12)
[2019-09-14 05:27] LABS: Calcium 8.1 MG/DL (8.5-10.1); Osmolality,Calculated 278.5 MOS/KG (273-304)
[2019-09-14 05:41] LABS: Lymphocytes 3 % (20-55); Platelet Estimate Adequate; Segmented Neutrophils 96 % (50-85); Total Cells Counted 100
[2019-09-14] MEDS: CHLORHEXIDINE 0.12% ORAL RINSE 60 ML BOTTLE SWISH/SPIT SCH ×2 (08:31→20:43)
[2019-09-14] MEDS: FERROUS SULFATE 325 MG TABLET PO SCH (08:32)
[2019-09-14] MEDS: APIXABAN 2.5 MG TABLET PO SCH ×2 (08:32→20:42)
[2019-09-14] MEDS: LACTOBACILLUS ACIDOPHILUS/BULGARICUS CAPLET PO SCH (08:32)
[2019-09-14] MEDS: ASPIRIN CHEW 81 MG TABLET PO SCH (08:32)
[2019-09-14] MEDS: MIDODRINE 5 MG TABLET PO SCH ×3 (08:32→20:43)
[2019-09-14] MEDS: ASCORBIC ACID 500 MG TABLET NG SCH ×2 (08:32→20:42)
[2019-09-14] MEDS: VITAMIN B12 5000 MCG PO SCH (08:33)
[2019-09-14] MEDS: PANTOPRAZOLE 40 MG TABLET PO SCH (08:33)
[2019-09-14] MEDS: FLUTICASONE 50 MCG NASAL SPRAY 16 GM BOTTLE BOTH NARES SCH (08:33)
[2019-09-14] MEDS: TAMSULOSIN 0.4 MG CAPSULE PO SCH (08:33)
[2019-09-14] MEDS: MUPIROCIN 2% OINT 22 GM TUBE TOP SCH ×2 (08:33→20:43)
[2019-09-14] MEDS: predniSONE 5 MG TABLET PO SCH (08:33)
[2019-09-14] MEDS: AMIODARONE 200 MG TABLET PO SCH ×2 (08:39→20:43)
[2019-09-14] MEDS: DOCUSATE SODIUM 100 MG/10 ML UDCUP PO SCH ×2 (08:40→20:43)
[2019-09-14] MEDS: ATORVASTATIN 20 MG TABLET PO SCH (20:43)
[2019-09-14] MEDS: oxyCODONE/ACETAMINOPHEN 5-325 MG TABLET PO PRN (20:46)
[2019-09-15] MEDS: ALBUTEROL/IPRATROPIUM 3 ML NEB RESP TX SCH ×4 (01:25→19:42)
[2019-09-15 04:45] LABS: Basophils % 0.2 % (0.0-0.8); Eosinophils # 0.1 10*3/uL (0.0-0.87); Eosinophils % 0.5 % (0.00-10.9); Hematocrit 32.3 VOL% (42.0-52.0); Hemoglobin 9.8 GM/DL (14.0-18.0); Immature Granulocytes % 1.5 %; Immature Granulocytes Absolute 0.24 #; Lymphocytes # 1.1 10*3/uL (1.4-4.0); Lymphocytes % 6.5 % (21.2-54.2); Mean Corpuscular HGB Conc 30.3 GM/DL (32-36); Mean Corpuscular Volume 97.3 FL (87-102); Mean Platelet Volume 10.4 FL (9.6-12.0); Monocytes % 2.9 % (1.7-12.7); NRBC # 0.02 10*3/uL; Neutrophils % 88.4 % (38.7-73.9); Platelet Count 142 T/CUMM (130-400); Red Blood Count 3.32 MC/CUMM (3.8-5.5); White Blood Count 16.4 T/CUMM (4-12)
[2019-09-15 05:08] LABS: Band Neutrophils 2 % (0-10); Hypochromasia Slight; Lymphocytes 2 % (20-55); Polychromasia Slight; Segmented Neutrophils 93 % (50-85); Total Cells Counted 100
[2019-09-15 05:09] LABS: Anisocytosis 1+; Macrocytosis 1+
[2019-09-15 05:14] LABS: Calcium 8.3 MG/DL (8.5-10.1); Osmolality,Calculated 278.5 MOS/KG (273-304)
[2019-09-15] MEDS: MIDODRINE 5 MG TABLET PO SCH ×3 (08:48→21:05)
[2019-09-15] MEDS: PANTOPRAZOLE 40 MG TABLET PO SCH (08:48)
[2019-09-15] MEDS: TAMSULOSIN 0.4 MG CAPSULE PO SCH (08:48)
[2019-09-15] MEDS: APIXABAN 2.5 MG TABLET PO SCH ×2 (08:48→21:05)
[2019-09-15] MEDS: FERROUS SULFATE 325 MG TABLET PO SCH (08:48)
[2019-09-15] MEDS: ASCORBIC ACID 500 MG TABLET NG SCH ×2 (08:48→21:05)
[2019-09-15] MEDS: AMIODARONE 200 MG TABLET PO SCH ×2 (08:48→21:05)
[2019-09-15] MEDS: FLUTICASONE 50 MCG NASAL SPRAY 16 GM BOTTLE BOTH NARES SCH (08:49)
[2019-09-15] MEDS: DOCUSATE SODIUM 100 MG/10 ML UDCUP PO SCH ×2 (08:49→21:06)
[2019-09-15] MEDS: CHLORHEXIDINE 0.12% ORAL RINSE 60 ML BOTTLE SWISH/SPIT SCH ×2 (08:49→21:06)
[2019-09-15] MEDS: ASPIRIN CHEW 81 MG TABLET PO SCH (08:49)
[2019-09-15] MEDS: LACTOBACILLUS ACIDOPHILUS/BULGARICUS CAPLET PO SCH (08:49)
[2019-09-15] MEDS: VITAMIN B12 5000 MCG PO SCH (08:49)
[2019-09-15] MEDS: predniSONE 5 MG TABLET PO SCH (08:49)
[2019-09-15] MEDS: MUPIROCIN 2% OINT 22 GM TUBE TOP SCH ×2 (08:49→21:06)
[2019-09-15] MEDS ORDERED: FUROSEMIDE 40 MG/4 ML VIAL IV ONE (14:24)
[2019-09-15] MEDS ORDERED: FUROSEMIDE 40 MG/4 ML VIAL ONE (14:27)
[2019-09-15] MEDS: methylPREDNISolone SOD SUC 125 MG/2 ML VIAL IV SCH ×2 (15:34→23:30)
[2019-09-15] MEDS: ATORVASTATIN 20 MG TABLET PO SCH (21:05)
[2019-09-15] MEDS: CLORAZEPATE 3.75 MG TABLET PO PRN (21:05)
[2019-09-15] MEDS: ZALEPLON 5 MG CAPSULE PO PRN ×2 (23:29→23:30)
[2019-09-16] MEDS: ALBUTEROL/IPRATROPIUM 3 ML NEB RESP TX SCH ×4 (00:57→19:33)
[2019-09-16 05:37] LABS: Basophils % 0.1 % (0.0-0.8); Hematocrit 31.6 VOL% (42.0-52.0); Hemoglobin 9.5 GM/DL (14.0-18.0); Immature Granulocytes Absolute 0.12 #; Lymphocytes # 0.6 10*3/uL (1.4-4.0); Lymphocytes % 4.7 % (21.2-54.2); Mean Corpuscular HGB Conc 30.1 GM/DL (32-36); Mean Platelet Volume 10.8 FL (9.6-12.0); Neutrophils % 92.2 % (38.7-73.9); Platelet Count 150 T/CUMM (130-400); Red Blood Count 3.29 MC/CUMM (3.8-5.5); Red Cell Distribution Width 17.6 % (9.3-17.3); White Blood Count 12.5 T/CUMM (4-12)
[2019-09-16 05:59] LABS: Lymphocytes 5 % (20-55); Platelet Estimate Adequate; Segmented Neutrophils 93 % (50-85); Total Cells Counted 100
[2019-09-16 06:00] LABS: Macrocytosis Slight
[2019-09-16 06:01] LABS: Calcium 8.6 MG/DL (8.5-10.1); Osmolality,Calculated 282.7 MOS/KG (273-304)
[2019-09-16] MEDS: ASPIRIN CHEW 81 MG TABLET PO SCH (09:49)
[2019-09-16] MEDS: DOCUSATE SODIUM 100 MG/10 ML UDCUP PO SCH ×2 (09:49→21:32)
[2019-09-16] MEDS: PANTOPRAZOLE 40 MG TABLET PO SCH (09:49)
[2019-09-16] MEDS: MIDODRINE 5 MG TABLET PO SCH ×3 (09:49→21:32)
[2019-09-16] MEDS: APIXABAN 2.5 MG TABLET PO SCH ×2 (09:49→21:32)
[2019-09-16] MEDS: LACTOBACILLUS ACIDOPHILUS/BULGARICUS CAPLET PO SCH (09:49)
[2019-09-16] MEDS: ASCORBIC ACID 500 MG TABLET NG SCH ×2 (09:49→21:32)
[2019-09-16] MEDS: TAMSULOSIN 0.4 MG CAPSULE PO SCH (09:49)
[2019-09-16] MEDS: AMIODARONE 200 MG TABLET PO SCH ×2 (09:49→21:31)
[2019-09-16] MEDS: FERROUS SULFATE 325 MG TABLET PO SCH (09:49)
[2019-09-16] MEDS: CHLORHEXIDINE 0.12% ORAL RINSE 60 ML BOTTLE SWISH/SPIT SCH ×2 (09:50→21:33)
[2019-09-16] MEDS: FLUTICASONE 50 MCG NASAL SPRAY 16 GM BOTTLE BOTH NARES SCH (09:51)
[2019-09-16] MEDS: MUPIROCIN 2% OINT 22 GM TUBE TOP SCH ×2 (09:51→21:32)
[2019-09-16] MEDS: methylPREDNISolone SOD SUC 125 MG/2 ML VIAL IV SCH ×2 (09:51→16:47)
[2019-09-16] MEDS: FUROSEMIDE 40 MG/4 ML VIAL IV SCH (09:53)
[2019-09-16] MEDS: VITAMIN B12 5000 MCG PO SCH (10:00)
[2019-09-16] MEDS ORDERED: AMIODARONE INJ 150 MG in DEXTROSE 5% 100 ML IV ONE (10:28)
[2019-09-16] MEDS ORDERED: AMIODARONE INJ 450 MG in DEXTROSE 5% 241 ML IV SCH (10:30)
[2019-09-16] MEDS ORDERED: AMIODARONE 450 MG/9 ML VIAL IV ONE (10:35)
[2019-09-16] MEDS ORDERED: AMIODARONE 150 MG/3 ML VIAL ONE (10:35)
[2019-09-16] MEDS: AMIODARONE INJ 450 MG in DEXTROSE 5% 241 ML IV SCH (18:43)
[2019-09-16] MEDS: ZALEPLON 5 MG CAPSULE PO PRN ×2 (21:31→21:32)
[2019-09-16] MEDS: CLORAZEPATE 3.75 MG TABLET PO PRN (21:32)
[2019-09-16] MEDS: ATORVASTATIN 20 MG TABLET PO SCH (21:32)
[2019-09-17] MEDS: methylPREDNISolone SOD SUC 125 MG/2 ML VIAL IV SCH ×4 (00:59→21:48)
[2019-09-17] MEDS: ALBUTEROL/IPRATROPIUM 3 ML NEB RESP TX SCH ×4 (01:13→19:05)
[2019-09-17] MEDS: ASCORBIC ACID 500 MG TABLET NG SCH ×2 (09:30→21:48)
[2019-09-17] MEDS: AMIODARONE 200 MG TABLET PO SCH ×2 (09:30→21:47)
[2019-09-17] MEDS: TAMSULOSIN 0.4 MG CAPSULE PO SCH (09:30)
[2019-09-17] MEDS: MIDODRINE 5 MG TABLET PO SCH ×3 (09:30→21:47)
[2019-09-17] MEDS: LACTOBACILLUS ACIDOPHILUS/BULGARICUS CAPLET PO SCH (09:30)
[2019-09-17] MEDS: APIXABAN 2.5 MG TABLET PO SCH ×2 (09:31→21:47)
[2019-09-17] MEDS: PANTOPRAZOLE 40 MG TABLET PO SCH (09:31)
[2019-09-17] MEDS: FLUTICASONE 50 MCG NASAL SPRAY 16 GM BOTTLE BOTH NARES SCH (09:31)
[2019-09-17] MEDS: DOCUSATE SODIUM 100 MG CAPSULE PO SCH ×2 (09:31→21:47)
[2019-09-17] MEDS: ASPIRIN CHEW 81 MG TABLET PO SCH (09:31)
[2019-09-17] MEDS: FERROUS SULFATE 325 MG TABLET PO SCH (09:31)
[2019-09-17] MEDS: MUPIROCIN 2% OINT 22 GM TUBE TOP SCH ×2 (09:32→21:47)
[2019-09-17] MEDS: VITAMIN B12 5000 MCG PO SCH (09:32)
[2019-09-17] MEDS: FUROSEMIDE 40 MG/4 ML VIAL IV SCH (09:32)
[2019-09-17] MEDS: AMIODARONE INJ 450 MG in DEXTROSE 5% 241 ML IV SCH (10:15)
[2019-09-17] MEDS: ATORVASTATIN 20 MG TABLET PO SCH (21:47)
[2019-09-18] MEDS: ALBUTEROL/IPRATROPIUM 3 ML NEB RESP TX SCH ×4 (00:44→20:03)
[2019-09-18] MEDS: methylPREDNISolone SOD SUC 125 MG/2 ML VIAL IV SCH ×3 (05:00→23:45)
[2019-09-18 05:03] LABS: Basophils % 0.1 % (0.0-0.8); Hematocrit 31.5 VOL% (42.0-52.0); Hemoglobin 9.5 GM/DL (14.0-18.0); Immature Granulocytes % 1.8 %; Lymphocytes # 0.4 10*3/uL (1.4-4.0); Lymphocytes % 3.3 % (21.2-54.2); Mean Corpuscular HGB Conc 30.2 GM/DL (32-36); Mean Corpuscular Volume 94.9 FL (87-102); Mean Platelet Volume 10.5 FL (9.6-12.0); Neutrophils % 91.8 % (38.7-73.9); Platelet Count 180 T/CUMM (130-400); Red Blood Count 3.32 MC/CUMM (3.8-5.5); Red Cell Distribution Width 17.3 % (9.3-17.3); White Blood Count 11.4 T/CUMM (4-12)
[2019-09-18 05:34] LABS: Calcium 8.4 MG/DL (8.5-10.1); Osmolality,Calculated 286.4 MOS/KG (273-304)
[2019-09-18 05:36] LABS: Hypochromasia 1+; Lymphocytes 2 % (20-55); Macrocytosis Slight; Platelet Estimate Adequate; Segmented Neutrophils 96 % (50-85); Total Cells Counted 100
[2019-09-18] MEDS: FUROSEMIDE 40 MG/4 ML VIAL IV SCH (09:14)
[2019-09-18] MEDS: LACTOBACILLUS ACIDOPHILUS/BULGARICUS CAPLET PO SCH (09:14)
[2019-09-18] MEDS: MIDODRINE 5 MG TABLET PO SCH ×3 (09:14→23:47)
[2019-09-18] MEDS: APIXABAN 2.5 MG TABLET PO SCH ×2 (09:14→23:47)
[2019-09-18] MEDS: DOCUSATE SODIUM 100 MG CAPSULE PO SCH ×2 (09:14→23:46)
[2019-09-18] MEDS: ASPIRIN CHEW 81 MG TABLET PO SCH (09:15)
[2019-09-18] MEDS: TAMSULOSIN 0.4 MG CAPSULE PO SCH (09:15)
[2019-09-18] MEDS: FERROUS SULFATE 325 MG TABLET PO SCH (09:15)
[2019-09-18] MEDS: AMIODARONE 200 MG TABLET PO SCH ×2 (09:15→23:46)
[2019-09-18] MEDS: MUPIROCIN 2% OINT 22 GM TUBE TOP SCH ×2 (09:15→23:47)
[2019-09-18] MEDS: PANTOPRAZOLE 40 MG TABLET PO SCH (09:15)
[2019-09-18] MEDS: FLUTICASONE 50 MCG NASAL SPRAY 16 GM BOTTLE BOTH NARES SCH (09:15)
[2019-09-18] MEDS: ASCORBIC ACID 500 MG TABLET NG SCH ×2 (09:22→23:46)
[2019-09-18] MEDS: VITAMIN B12 5000 MCG PO SCH (09:22)
[2019-09-18] MEDS: CLORAZEPATE 3.75 MG TABLET PO PRN ×2 (15:01→23:46)
[2019-09-18] MEDS: ATORVASTATIN 20 MG TABLET PO SCH (23:46)
[2019-09-18] MEDS: ZALEPLON 5 MG CAPSULE PO PRN (23:47)
[2019-09-19] MEDS: ALBUTEROL/IPRATROPIUM 3 ML NEB RESP TX SCH ×4 (02:07→19:46)
[2019-09-19] MEDS: methylPREDNISolone SOD SUC 125 MG/2 ML VIAL IV SCH (05:00)
[2019-09-19 06:10] LABS: Basophils % 0.1 % (0.0-0.8); Hematocrit 32.7 VOL% (42.0-52.0); Hemoglobin 9.9 GM/DL (14.0-18.0); Immature Granulocytes % 1.2 %; Immature Granulocytes Absolute 0.11 #; Lymphocytes # 0.3 10*3/uL (1.4-4.0); Lymphocytes % 3.2 % (21.2-54.2); Mean Corpuscular HGB Conc 30.3 GM/DL (32-36); Mean Corpuscular Volume 95.6 FL (87-102); Mean Platelet Volume 10.5 FL (9.6-12.0); Neutrophils % 93.5 % (38.7-73.9); Platelet Count 196 T/CUMM (130-400); Red Blood Count 3.42 MC/CUMM (3.8-5.5); Red Cell Distribution Width 17.2 % (9.3-17.3)
[2019-09-19 06:31] LABS: Calcium 8.3 MG/DL (8.5-10.1); Osmolality,Calculated 290.1 MOS/KG (273-304)
[2019-09-19 07:24] LABS: Hypochromasia 2+; Lymphocytes 3 % (20-55); Platelet Estimate Normal; Segmented Neutrophils 95 % (50-85); Total Cells Counted 100
[2019-09-19] MEDS: FUROSEMIDE 40 MG/4 ML VIAL IV SCH (09:13)
[2019-09-19] MEDS: PANTOPRAZOLE 40 MG TABLET PO SCH (09:14)
[2019-09-19] MEDS: ASCORBIC ACID 500 MG TABLET NG SCH ×2 (09:14→22:07)
[2019-09-19] MEDS: LACTOBACILLUS ACIDOPHILUS/BULGARICUS CAPLET PO SCH (09:14)
[2019-09-19] MEDS: DOCUSATE SODIUM 100 MG CAPSULE PO SCH ×2 (09:14→22:09)
[2019-09-19] MEDS: POTASSIUM CHLORIDE 20 MEQ TABLET PO PRN ×2 (09:14→11:11)
[2019-09-19] MEDS: ASPIRIN CHEW 81 MG TABLET PO SCH (09:14)
[2019-09-19] MEDS: TAMSULOSIN 0.4 MG CAPSULE PO SCH (09:15)
[2019-09-19] MEDS: VITAMIN B12 5000 MCG PO SCH (09:15)
[2019-09-19] MEDS: MIDODRINE 5 MG TABLET PO SCH ×3 (09:15→22:09)
[2019-09-19] MEDS: AMIODARONE 200 MG TABLET PO SCH ×2 (09:15→22:08)
[2019-09-19] MEDS: FERROUS SULFATE 325 MG TABLET PO SCH (09:15)
[2019-09-19] MEDS: FLUTICASONE 50 MCG NASAL SPRAY 16 GM BOTTLE BOTH NARES SCH (09:15)
[2019-09-19] MEDS: APIXABAN 2.5 MG TABLET PO SCH ×2 (09:15→22:09)
[2019-09-19] MEDS: MUPIROCIN 2% OINT 22 GM TUBE TOP SCH ×2 (09:16→22:09)
[2019-09-19] MEDS: methylPREDNISolone SOD SUC 40 MG/1 ML VIAL IV SCH ×2 (11:10→22:07)
[2019-09-19] MEDS: CLORAZEPATE 3.75 MG TABLET PO PRN (22:08)
[2019-09-19] MEDS: ATORVASTATIN 20 MG TABLET PO SCH (22:08)
[2019-09-19] MEDS: ZALEPLON 5 MG CAPSULE PO PRN (22:08)
[2019-09-20] MEDS: ALBUTEROL/IPRATROPIUM 3 ML NEB RESP TX SCH ×4 (00:41→20:41)
[2019-09-20 04:46] LABS: Basophils % 0.1 % (0.0-0.8); Hematocrit 34.7 VOL% (42.0-52.0); Hemoglobin 10.5 GM/DL (14.0-18.0); Immature Granulocytes % 0.7 %; Immature Granulocytes Absolute 0.09 #; Lymphocytes # 0.3 10*3/uL (1.4-4.0); Lymphocytes % 2.5 % (21.2-54.2); Mean Corpuscular HGB Conc 30.3 GM/DL (32-36); Mean Corpuscular Volume 95.3 FL (87-102); Mean Platelet Volume 10.9 FL (9.6-12.0); Monocytes % 2.1 % (1.7-12.7); Neutrophils % 94.6 % (38.7-73.9); Platelet Count 237 T/CUMM (130-400); Red Blood Count 3.64 MC/CUMM (3.8-5.5); Red Cell Distribution Width 17.4 % (9.3-17.3); White Blood Count 12.6 T/CUMM (4-12)
[2019-09-20 05:33] LABS: Lymphocytes 1 % (20-55); Segmented Neutrophils 96 % (50-85); Total Cells Counted 100
[2019-09-20 05:34] LABS: Anisocytosis 1+; Hypochromasia 2+; Macrocytosis 1+
[2019-09-20 05:35] LABS: Platelet Estimate Normal
[2019-09-20 06:00] LABS: Calcium 8.6 MG/DL (8.5-10.1); Osmolality,Calculated 296.8 MOS/KG (273-304)
[2019-09-20] MEDS: LACTOBACILLUS ACIDOPHILUS/BULGARICUS CAPLET PO SCH (10:34)
[2019-09-20] MEDS: ASCORBIC ACID 500 MG TABLET NG SCH ×2 (10:34→22:07)
[2019-09-20] MEDS: TAMSULOSIN 0.4 MG CAPSULE PO SCH (10:35)
[2019-09-20] MEDS: ASPIRIN CHEW 81 MG TABLET PO SCH (10:35)
[2019-09-20] MEDS: MIDODRINE 5 MG TABLET PO SCH ×3 (10:35→22:08)
[2019-09-20] MEDS: AMIODARONE 200 MG TABLET PO SCH ×2 (10:35→22:08)
[2019-09-20] MEDS: APIXABAN 2.5 MG TABLET PO SCH ×2 (10:35→22:07)
[2019-09-20] MEDS: POTASSIUM CHLORIDE 20 MEQ TABLET PO PRN ×3 (10:35→15:45)
[2019-09-20] MEDS: FERROUS SULFATE 325 MG TABLET PO SCH (10:35)
[2019-09-20] MEDS: DOCUSATE SODIUM 100 MG CAPSULE PO SCH (10:36)
[2019-09-20] MEDS: PANTOPRAZOLE 40 MG TABLET PO SCH (10:36)
[2019-09-20] MEDS: methylPREDNISolone SOD SUC 40 MG/1 ML VIAL IV SCH ×2 (10:41→22:09)
[2019-09-20] MEDS: FUROSEMIDE 40 MG/4 ML VIAL IV SCH (10:41)
[2019-09-20] MEDS: VITAMIN B12 5000 MCG PO SCH (10:43)
[2019-09-20] MEDS: FLUTICASONE 50 MCG NASAL SPRAY 16 GM BOTTLE BOTH NARES SCH (10:43)
[2019-09-20] MEDS: MUPIROCIN 2% OINT 22 GM TUBE TOP SCH ×2 (10:43→22:08)
[2019-09-20] MEDS: NYSTATIN 500,000 UNIT/5 ML UDCUP SWISH/SWAL SCH ×4 (13:15→22:07)
[2019-09-20] MEDS: ATORVASTATIN 20 MG TABLET PO SCH (22:08)
[2019-09-20] MEDS: ZALEPLON 5 MG CAPSULE PO PRN (22:08)
[2019-09-20] MEDS: CLORAZEPATE 3.75 MG TABLET PO PRN (22:08)
[2019-09-20] MEDS: DOCUSATE SODIUM 100 MG/10 ML UDCUP PEG SCH (22:08)
[2019-09-21] MEDS: ALBUTEROL/IPRATROPIUM 3 ML NEB RESP TX SCH ×4 (00:30→19:57)
[2019-09-21 05:47] LABS: Basophils % 0.1 % (0.0-0.8); Hematocrit 37.5 VOL% (42.0-52.0); Hemoglobin 11.3 GM/DL (14.0-18.0); Immature Granulocytes % 1.2 %; Immature Granulocytes Absolute 0.17 #; Lymphocytes # 0.3 10*3/uL (1.4-4.0); Mean Corpuscular HGB Conc 30.1 GM/DL (32-36); Mean Corpuscular Volume 96.9 FL (87-102); Mean Platelet Volume 10.7 FL (9.6-12.0); Monocytes % 1.9 % (1.7-12.7); NRBC # 0.02 10*3/uL; Neutrophils % 94.8 % (38.7-73.9); Platelet Count 234 T/CUMM (130-400); Red Blood Count 3.87 MC/CUMM (3.8-5.5); Red Cell Distribution Width 17.5 % (9.3-17.3); White Blood Count 14.5 T/CUMM (4-12)
[2019-09-21 06:05] LABS: Calcium 8.4 MG/DL (8.5-10.1); Osmolality,Calculated 301.8 MOS/KG (273-304)
[2019-09-21 06:11] LABS: Hypochromasia 1+; Lymphocytes 1 % (20-55); Platelet Estimate Adequate; Segmented Neutrophils 97 % (50-85); Total Cells Counted 100
[2019-09-21 06:12] LABS: Macrocytosis Slight
[2019-09-21] MEDS: TAMSULOSIN 0.4 MG CAPSULE PO SCH (09:20)
[2019-09-21] MEDS: ASCORBIC ACID 500 MG TABLET NG SCH ×2 (09:21→22:48)
[2019-09-21] MEDS: NYSTATIN 500,000 UNIT/5 ML UDCUP SWISH/SWAL SCH ×3 (09:21→16:38)
[2019-09-21] MEDS: AMIODARONE 200 MG TABLET PO SCH ×2 (09:21→22:48)
[2019-09-21] MEDS: APIXABAN 2.5 MG TABLET PO SCH ×2 (09:21→22:54)
[2019-09-21] MEDS: LACTOBACILLUS ACIDOPHILUS/BULGARICUS CAPLET PO SCH (09:21)
[2019-09-21] MEDS: DOCUSATE SODIUM 100 MG/10 ML UDCUP PEG SCH ×2 (09:21→22:54)
[2019-09-21] MEDS: MIDODRINE 5 MG TABLET PO SCH ×3 (09:22→22:49)
[2019-09-21] MEDS: FERROUS SULFATE 325 MG TABLET PO SCH (09:22)
[2019-09-21] MEDS: PANTOPRAZOLE 40 MG TABLET PO SCH (09:22)
[2019-09-21] MEDS: ASPIRIN CHEW 81 MG TABLET PO SCH (09:22)
[2019-09-21] MEDS: methylPREDNISolone SOD SUC 40 MG/1 ML VIAL IV SCH ×2 (09:22→22:48)
[2019-09-21] MEDS: carvediloL 3.125 MG TABLET PO SCH ×2 (09:22→16:38)
[2019-09-21] MEDS: FUROSEMIDE 40 MG/4 ML VIAL IV SCH (09:25)
[2019-09-21] MEDS: FLUTICASONE 50 MCG NASAL SPRAY 16 GM BOTTLE BOTH NARES SCH (09:29)
[2019-09-21] MEDS: VITAMIN B12 5000 MCG PO SCH (09:29)
[2019-09-21] MEDS: MUPIROCIN 2% OINT 22 GM TUBE TOP SCH ×2 (09:48→22:55)
[2019-09-21] MEDS: ATORVASTATIN 20 MG TABLET PO SCH (22:47)
[2019-09-21] MEDS: CLORAZEPATE 3.75 MG TABLET PO PRN (22:47)
[2019-09-21] MEDS ORDERED: LEVOFLOXACIN INJ 750 MG in PREMIX 1 EACH IV SCH (23:30)
[2019-09-22] MEDS: NYSTATIN 500,000 UNIT/5 ML UDCUP SWISH/SWAL SCH ×3 (00:46→14:30)
[2019-09-22] MEDS ORDERED: SODIUM CHLORIDE 0.9% 1,000 ML IV ONE (01:16)
[2019-09-22] MEDS: ALBUTEROL/IPRATROPIUM 3 ML NEB RESP TX SCH ×3 (01:43→12:13)
[2019-09-22] MEDS ORDERED: NOREPINEPHRINE 8 MG in SODIUM CHLORIDE 0.9% 242 ML IV PRN (02:46)
[2019-09-22 06:05] LABS: Basophils % 0.1 % (0.0-0.8); Hematocrit 32.7 VOL% (42.0-52.0); Hemoglobin 9.8 GM/DL (14.0-18.0); Immature Granulocytes Absolute 0.14 #; Lymphocytes # 0.4 10*3/uL (1.4-4.0); Lymphocytes % 2.8 % (21.2-54.2); Mean Corpuscular Volume 96.2 FL (87-102); Mean Platelet Volume 11.1 FL (9.6-12.0); Monocytes % 1.8 % (1.7-12.7); NRBC # 0.02 10*3/uL; Neutrophils % 94.3 % (38.7-73.9); Platelet Count 202 T/CUMM (130-400); Red Cell Distribution Width 17.2 % (9.3-17.3); White Blood Count 14.2 T/CUMM (4-12)
[2019-09-22 06:14] LABS: Calcium 7.7 MG/DL (8.5-10.1); Osmolality,Calculated 301.7 MOS/KG (273-304); Prealbumin 17.2 MG/DL (20-40)
[2019-09-22 06:14] LABS: Albumin 1.7 G/DL (3.4-5.0); Bilirubin,Total 0.4 MG/DL (0.2-1.0); Calcium 7.8 MG/DL (8.5-10.1); Osmolality,Calculated 296.1 MOS/KG (273-304); Total Protein 5.4 G/DL (6.4-8.3)
[2019-09-22 06:31] LABS: Band Neutrophils 3 % (0-10); Hypochromasia 1+; Lymphocytes 1 % (20-55); Nucleated Red Blood Cells 1 (0-5); Ovalocytes Slight; Platelet Estimate Adequate; Segmented Neutrophils 94 % (50-85); Total Cells Counted 100
[2019-09-22 06:32] LABS: Macrocytosis Slight
[2019-09-22] MEDS ORDERED: LIDOCAINE 2% 20 ML VIAL RESP TX ONE (07:25)
[2019-09-22] MEDS ORDERED: LIDOCAINE 1% 20 ML VIAL MISC INJ ONE (07:25)
[2019-09-22] MEDS ORDERED: MEROPENEM 500 MG in SODIUM CHLORIDE 0.9% 100 ML IV SCH (08:00)
[2019-09-22 08:33] LABS: ABG Base Excess 5.4 MMOL/L (-2.5-2.5); ABG HCO3 28.8 MMOL/L (20-26); ABG Oxygen Saturation 72.2 % (95-100); ABG PCO2 62.6 MM HG (35-48); ABG PH 7.332 (7.35-7.45); ABG PO2 45.6 MM HG (80-95); ABG TCO2 30.2 MMOL/L (23-27); Allen Test Positive; Pt O2 Delivery Device BIPAP
[2019-09-22 08:50] LABS: ABG Base Excess 3.5 MMOL/L (-2.5-2.5); ABG HCO3 31.9 MMOL/L (20-26); ABG Oxygen Saturation 80.1 % (95-100); ABG PH 7.278 (7.35-7.45); Allen Test Positive; Pt O2 Delivery Device BIPAP
[2019-09-22 08:53] LABS: ABG PCO2 69.7 MM HG (35-48)
[2019-09-22] MEDS: MIDODRINE 5 MG TABLET PO SCH (09:34)
[2019-09-22] MEDS: FERROUS SULFATE 325 MG TABLET PO SCH (09:34)
[2019-09-22] MEDS: ASPIRIN CHEW 81 MG TABLET PO SCH (09:34)
[2019-09-22] MEDS: MEROPENEM 500 MG in SODIUM CHLORIDE 0.9% 100 ML IV SCH ×2 (09:34→14:31)
[2019-09-22] MEDS: AMIODARONE 200 MG TABLET PO SCH (09:34)
[2019-09-22] MEDS: TAMSULOSIN 0.4 MG CAPSULE PO SCH (09:34)
[2019-09-22] MEDS: ASCORBIC ACID 500 MG TABLET NG SCH (09:35)
[2019-09-22] MEDS: APIXABAN 2.5 MG TABLET PO SCH (09:35)
[2019-09-22] MEDS: methylPREDNISolone SOD SUC 40 MG/1 ML VIAL IV SCH (09:36)
[2019-09-22] MEDS ORDERED: DEXTROSE 5% NACL 0.45% 1,000 ML IV SCH (10:00)
[2019-09-22] MEDS: FLUTICASONE 50 MCG NASAL SPRAY 16 GM BOTTLE BOTH NARES SCH (10:05)
[2019-09-22] MEDS: FUROSEMIDE 40 MG/4 ML VIAL IV SCH (10:05)
[2019-09-22] MEDS: carvediloL 3.125 MG TABLET PO SCH (10:06)
[2019-09-22] MEDS: DOCUSATE SODIUM 100 MG/10 ML UDCUP PEG SCH (10:07)
[2019-09-22] MEDS: VITAMIN B12 5000 MCG PO SCH (10:08)
[2019-09-22] MEDS: MUPIROCIN 2% OINT 22 GM TUBE TOP SCH (10:08)
[2019-09-22] MEDS: PANTOPRAZOLE 40 MG TABLET PO SCH (10:08)
[2019-09-22] MEDS: LACTOBACILLUS ACIDOPHILUS/BULGARICUS CAPLET PO SCH (10:14)
[2019-09-22 11:36] LABS: Apearance,Urine CLEAR (Clear); Bilirubin,Urine Negative (Negative); Blood, Urine Negative (Negative); Glucose,Urine (UA) Negative (Negative); Ketones,Urine Negative (Negative); Mucus,Urine Few /LPF (Occasional); Nitrite,Urine Negative (Negative); Protein,Urine Negative; RBC,Urine 10 /HPF (0-4); Urine Color Yellow (Yellow); Urine Specific Gravity 1.021 (1.001-1.035); WBC,Urine 1 /HPF (0-6)
[2019-09-22 12:23] VITALS: BP 85/52
== END 2019-09-22 13:09 | disposition expired | DRG 3 ==
LOC: N.CL 11:02 → N.TELES 17:15 → N.CVR 07-03 12:29 → N.ICU 07-04 13:22 → N.TELES 09-07 15:11 → N.TELEN 09-07 16:22 → N.ICU 09-21 22:12
PROVIDERS: ADMIT Internal Medicine Cardiovascular Disease
PROC: CABGAVR (ICD-10-PCS; 2019-07-03 06:44)
PROC: EGDWPEG (ICD-10-PCS; 2019-07-22 07:35)